=== PATIENT | female | born 1960 | race Two or more races ===

== ENCOUNTER 2020-03-16 07:13 | Outpatient (REF) | payer OTHER, SELFPAY ==
--- NOTE | 2020-03-16 07:19 | CT_ITS ---
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 This CT examination was performed using dose optimization techniques as appropriate, variously including the following: *Automated exposure control *Adjustment of mA and/or kV according to patient size (this includes techniques or standardized protocols for targeted exams where dose is matched to indication/reason for exam; i.e. extremities or head) *Use of iterative reconstruction technique DLP: 835 mGy-cm FINDINGS: There is no evidence of acute intracranial hemorrhage or territorial infarction. No abnormal mass effect or midline shift is seen. Muñiz to white matter differentiation is well preserved. No extra-axial fluid collections are identified. The ventricles are normal in size. There is no abnormal attenuation within the brain parenchyma. There is opacification of the left maxillary sinus without evidence of bony erosion or destruction. There is hyperostosis frontalis interna present. There is a 5 mm bony density seen along the mid falx consistent with a benign calcified meningioma. CT/CT head/brain wo con IMPRESSION: 1. No acute intracranial pathology. 2. There is a 5 mm calcified meningioma. 3. Chronic sinusitis with complete opacification of the left mastoid sinus.
== END 2020-03-16 07:14 | disposition home or self-care (01) ==
LOC: HO.CT 07:13
PROVIDERS: PCP Internal Medicine; Visit Provider Internal Medicine
DX: D16.4 Benign neoplasm of bones of skull and face (principal)
CPT/HCPCS: 70450

== ENCOUNTER 2020-05-20 07:54 | Outpatient (REF) | payer OTHER, SELFPAY | END 2020-05-20 07:55 | disposition home or self-care (01) | LOC: HO.LAB 07:54 | PROVIDERS: PCP Internal Medicine; Visit Provider Internal Medicine | DX: Z20.822 Contact with and (suspected) exposure to COVID-19 (principal) | CPT/HCPCS: 36415; C9803; U0003; U0005 ==

== ENCOUNTER 2020-08-17 10:37 | Outpatient (REF) | payer MEDICAID, SELFPAY ==
[2020-08-17 11:05] LABS: COVID-19 Test Negative (Negative)
== END 2020-08-17 10:38 | disposition home or self-care (01) ==
LOC: HO.LAB 10:37
PROVIDERS: Visit Provider Internal Medicine
DX: Z20.822 Contact with and (suspected) exposure to COVID-19 (principal)
CPT/HCPCS: 36415; 87635; C9803

== ENCOUNTER 2020-11-11 10:36 | Outpatient (REF) | payer OTHER, SELFPAY ==
--- NOTE | ~2020-11-11 | MM_ITS ---
EXAMINATION: MM SCREENING DIGITAL BREAST TOMOSYNTHESIS, BILATERAL CLINICAL INFORMATION: Screening. Asymptomatic. The lifetime risk of breast cancer based on the Tyrer-Cuzick Model is 7%. COMPARISON: Mammography: 11/04/2019, 10/31/2018, 03/14/2009 TECHNIQUE: Digital breast tomosynthesis is performed in both the craniocaudal and mediolateral oblique views along with computer-aided detection (CAD). Synthesized 2D images are generated from the tomosynthesis. FINDINGS: There are scattered areas of fibroglandular density (ACR BI-RADS breast composition Category b). There are no significant masses, abnormal calcifications, or other abnormalities. Parenchymal pattern is similar to prior studies. No developing density or interval mass or architectural abnormality. No abnormal calcifications. The axilla and skin contours are unremarkable. MM/MM tomosynthesis screening BI IMPRESSION: No mammographic evidence of malignancy. ASSESSMENT: BI-RADS 1: Negative RECOMMENDATION: Routine annual mammography screening. This patient's information was entered into a reminder system with a target due date for their next mammogram.
[2020-11-11 13:53] LABS: MANUAL DIFF FLAG NO
[2020-11-11 14:00] LABS: Basophils Absolute Auto 0.1 X10*3/uL (0.0-0.2); Basophils Percent Auto 0.6 % (0-2); Eosinophils Absolute Auto 0.3 X10*3/uL (0.0-0.4); Eosinophils Percent Auto 3.4 % (0-4); Hematocrit 39.4 % (37-47); Hemoglobin 12.6 g/dl (12.0-16.0); Imm Gran Abs Auto 0.02 X10*3/uL (0.00-0.03); Imm Gran Pct Auto 0.2 % (0.0-0.4); Lymphocytes Absolute Auto 2.4 X10*3/uL (1.2-4.9); Lymphocytes Percent Auto 25.2 % (20-40); Mean Corpuscular Hemoglobin 27.8 pg (27.0-33.0); Mean Corpuscular Volume 86.8 fL (80-98); Mean Platelet Volume 12.5 fL (9.4-12.3); Monocytes Absolute Auto 0.4 X10*3/uL (0.1-1.2); Monocytes Percent Auto 3.9 % (2-11); Neutrophils Absolute Auto 6.3 X10*3/uL (2.0-8.3); Neutrophils Percent Auto 66.7 % (45-73); Platelet Count 304 X10*3/uL (160-400); Red Blood Count 4.54 X10*6/uL (4.20-5.50); Red Cell Distribution Width 15.3 % (11.0-16.0); White Blood Count 9.4 X10*3/uL (4.8-10.8)
[2020-11-11 14:09] LABS: Estimated Average Glucose 128 mg/dL; Hemoglobin A1c % 6.1 %
[2020-11-11 14:14] LABS: Alanine Aminotransferase 7 U/L (0-31); Albumin Level 3.9 g/dL (3.5-5.0); Alkaline Phosphatase 101 U/L (39-117); Anion Gap 14 (12-20); Aspartate Amino Transferase 8 U/L (5-31); Bilirubin Total 0.4 mg/dL (0.0-1.0); Blood Urea Nitrogen 12 mg/dL (9-16); Calcium 9.3 mg/dL (8.4-10.2); Carbon Dioxide 25 mmol/L (22-29); Chloride 105 mmol/L (96-108); Cholesterol 191 mg/dL; Estimated Glomerular Filt Rate > 60; Glucose Fasting 101 mg/dL (60-99); HDL Cholesterol 38 mg/dL; LDL Cholesterol Calculated 132 mg/dl; Potassium 4.3 mmol/L (3.3-5.1); Sodium 140 mmol/L (135-145); Triglycerides 108 mg/dL
[2020-11-11 14:38] LABS: TSH reflex Free T4 2.63 uIU/mL (0.32-4.0)
== END 2020-11-11 10:37 | disposition home or self-care (01) ==
LOC: HO.MAMMO 10:36
PROVIDERS: PCP Internal Medicine; Visit Provider Internal Medicine
DX: Z12.31 Encounter for screening mammogram for malignant neoplasm of breast (principal); E66.01 Morbid (severe) obesity due to excess calories; F32.9 Major depressive disorder, single episode, unspecified; G47.30 Sleep apnea, unspecified; K21.9 Gastro-esophageal reflux disease without esophagitis; M25.473 Effusion, unspecified ankle; M25.561 Pain in right knee; M25.562 Pain in left knee
CPT/HCPCS: 36415; 77063; 77067; 80053; 80061; 83036; 84443; 85025

== ENCOUNTER → 2021-05-18 09:20 | Outpatient (BNVA) | payer OTHER, SELFPAY | PROVIDERS: PCP Internal Medicine; Referring Provider Internal Medicine; Visit Provider Physician Assistant ==

== ENCOUNTER 2022-05-22 14:21 | Outpatient (REF) | payer OTHER, SELFPAY ==
--- NOTE | ~2022-05-22 | MM_ITS ---
EXAMINATION: MM SCREENING DIGITAL BREAST TOMOSYNTHESIS, BILATERAL CLINICAL INFORMATION: Screening. Asymptomatic. COMPARISON: Mammography: November 11, 2020 and studies dating back to March 14, 2009 TECHNIQUE: Digital breast tomosynthesis is performed in both the craniocaudal and mediolateral oblique views along with computer-aided detection (CAD). Synthesized 2D images are generated from the tomosynthesis. FINDINGS: The breasts are almost entirely fatty (ACR BI-RADS breast composition Category a). There are no significant masses, abnormal calcifications, or other abnormalities. MM/MM tomosynthesis screening BI IMPRESSION: No significant changes from prior exam. ASSESSMENT: BI-RADS 1: Negative RECOMMENDATION: Routine annual mammography screening. This patient's information was entered into a reminder system with a target due date for their next mammogram.
== END 2022-05-22 14:22 | disposition home or self-care (01) ==
LOC: HO.MAMMO 14:21
PROVIDERS: Visit Provider Internal Medicine
DX: Z12.31 Encounter for screening mammogram for malignant neoplasm of breast (principal)
CPT/HCPCS: 77063; 77067

== ENCOUNTER 2022-06-08 11:12 | Outpatient (REF) | payer OTHER, SELFPAY ==
--- NOTE | ~2022-06-08 | XR_ITS ---
EXAMINATION: XR CHEST CLINICAL INFORMATION: Pneumonia COMPARISON: 11/18/2018 TECHNIQUE: 2 views of the chest were obtained. FINDINGS: Normal symmetric lung volumes. Radiopacity in the left lower lobe, likely lingula favors subsegmental atelectasis. No pleural effusion. No pneumothorax. Cardiomediastinal silhouette and pulmonary vascularity are within normal limits. No acute osseous abnormalities. XR/XR chest 2V IMPRESSION: No focal consolidation.
[2022-06-08 14:08] LABS: Basophils Absolute Auto 0.1 X10*3/uL (0.0-0.2); Basophils Percent Auto 0.6 % (0-2); Eosinophils Absolute Auto 0.3 X10*3/uL (0.0-0.4); Eosinophils Percent Auto 3.2 % (0-4); Hematocrit 38.9 % (37.0-47.0); Imm Gran Abs Auto 0.03 X10*3/uL (0.00-0.03); Imm Gran Pct Auto 0.3 % (0.0-0.4); Lymphocytes Absolute Auto 2.8 X10*3/uL (1.2-4.9); Lymphocytes Percent Auto 26.9 % (20-40); MANUAL DIFF FLAG NO; Mean Corpuscular HGB Conc 30.8 g/dl (31.0-35.0); Mean Corpuscular Hemoglobin 26.7 pg (27.0-33.0); Mean Corpuscular Volume 86.4 fL (80.0-98.0); Mean Platelet Volume 12.3 fL (9.4-12.3); Monocytes Absolute Auto 0.5 X10*3/uL (0.1-1.2); Monocytes Percent Auto 4.4 % (2-11); Neutrophils Absolute Auto 6.7 x10*3/uL (2.0-8.3); Neutrophils Percent Auto 64.6 % (45-73); Platelet Count 370 X10*3/uL (160-400); Red Cell Distribution Width 16.4 % (11.0-16.0); White Blood Count 10.3 X10*3/uL (4.8-10.8)
[2022-06-08 19:44] LABS: Estimated Average Glucose 123 mg/dL; Hemoglobin A1c % 5.9 %
[2022-06-08 19:54] LABS: Alanine Aminotransferase 12 U/L (0-31); Albumin Level 3.9 g/dL (3.5-5.0); Anion Gap 14 (12-20); Aspartate Amino Transferase 13 U/L (5-31); Bilirubin Total 0.5 mg/dL (0.0-1.0); Blood Urea Nitrogen 11 mg/dL (9-16); Calcium 9.4 mg/dL (8.4-10.2); Carbon Dioxide 28 mmol/L (22-29); Chloride 103 mmol/L (96-108); Cholesterol 185 mg/dL; Estimated Glomerular Filt Rate > 60; Glucose Fasting 102 mg/dL (60-99); Potassium 4.3 mmol/L (3.3-5.1); Sodium 141 mmol/L (135-145); Total Protein 6.9 g/dL (6.5-8.0); Triglycerides 103 mg/dL
[2022-06-08 19:55] LABS: Alkaline Phosphatase 107 U/L (39-117); HDL Cholesterol 40 mg/dL; LDL Cholesterol Calculated 125 mg/dl
[2022-06-08 20:18] LABS: TSH reflex Free T4 2.26 uIU/mL (0.32-4.0); Vitamin B12 431 pg/mL (200-900)
== END 2022-06-08 11:13 | disposition home or self-care (01) ==
LOC: HO.HMGCX 11:12
PROVIDERS: PCP Internal Medicine; Visit Provider Internal Medicine
DX: R73.03 Prediabetes (principal); E53.8 Deficiency of other specified B group vitamins; K21.9 Gastro-esophageal reflux disease without esophagitis; J18.9 Pneumonia, unspecified organism; E66.01 Morbid (severe) obesity due to excess calories; K52.9 Noninfective gastroenteritis and colitis, unspecified
CPT/HCPCS: 36415; 71046; 80053; 80061; 82607; 83036; 84443; 85025

== ENCOUNTER 2022-10-18 10:55 | Outpatient (REF) | payer OTHER, SELFPAY | END 2022-10-18 10:56 | disposition home or self-care (01) | LOC: HO.HOSX 10:55 | PROVIDERS: Visit Provider Physician Assistant | DX: Z13.89 Encounter for screening for other disorder (principal) ==

== ENCOUNTER 2023-01-08 11:50 | Outpatient (REF) | payer OTHER, SELFPAY ==
--- NOTE | ~2023-01-08 | XR_ITS ---
EXAMINATION: XR BILATERAL KNEES CLINICAL INFORMATION: Reason for Exam M25.561 - Pain in right knee COMPARISON: None TECHNIQUE: 3 views of the bilateral knees FINDINGS: RIGHT KNEE: No acute fracture or dislocation. Moderate degenerative changes of the knee with tricompartmental osteophytes and loss of medial compartment joint space. No joint effusion. Soft tissues are unremarkable. LEFT KNEE: No acute fracture or dislocation. Moderate degenerative changes of the knee with loss of medial compartment joint space and tricompartmental osteophytes. Trace suprapatellar joint effusion. 6 mm nonspecific soft tissue calcification anterior to the patella. XR/XR knee RT 3V IMPRESSION: * No acute osseous abnormality. * Moderate degenerative changes of the knees. Trace left suprapatellar joint effusion.
--- NOTE | ~2023-01-08 | XR_ITS ---
EXAMINATION: XR BILATERAL KNEES CLINICAL INFORMATION: Reason for Exam M25.561 - Pain in right knee COMPARISON: None TECHNIQUE: 3 views of the bilateral knees FINDINGS: RIGHT KNEE: No acute fracture or dislocation. Moderate degenerative changes of the knee with tricompartmental osteophytes and loss of medial compartment joint space. No joint effusion. Soft tissues are unremarkable. LEFT KNEE: No acute fracture or dislocation. Moderate degenerative changes of the knee with loss of medial compartment joint space and tricompartmental osteophytes. Trace suprapatellar joint effusion. 6 mm nonspecific soft tissue calcification anterior to the patella. XR/XR knee LT 3V IMPRESSION: * No acute osseous abnormality. * Moderate degenerative changes of the knees. Trace left suprapatellar joint effusion.
== END 2023-01-08 11:51 | disposition home or self-care (01) ==
LOC: HO.HOSX 11:50
PROVIDERS: Visit Provider Orthopaedic Surgery
DX: M17.0 Bilateral primary osteoarthritis of knee (principal)
CPT/HCPCS: 73562; 99202

== ENCOUNTER 2023-01-08 11:58 | Outpatient (AMB) | payer OTHER, SELFPAY ==
--- NOTE | 2023-01-08 12:12 | A.OFFVIS_ITS ---
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 She describes her pains as sharp in nature. Her pains have gotten worse over the last year in spite of continued non operative treatments. She has done physical therapy which aggravated her pain. She denies any locking or giving way. She has tried Tylenol and anti- inflammatory medicines which gave her minimal relief. She has had cortisone injections in the past which gave her no relief. She would like to hold off on surgery for as long as possible. Allergies shellfish derived Allergy (Unknown, Verified 01/08/23 12:13) Unknown SEAFOOD Allergy (Unknown, Uncoded 01/08/23 12:13) UNKNOWN Medication List - Last Reconciled 01/08/23 by Luis Rizo MD albuterol sulfate 90 mcg/actuation (ProAir HFA) 2 puffs inhalation Q4-6H PRN cholecalciferol (vitamin D3) 50 mcg PO DAILY mecobalamin (vitamin B12) 1,000 mcg sublingual DAILY PFSH Medical History Benign neoplasm of skull Asthma Surgical History History of breast biopsy History of tonsillectomy History of section Family History Father HTN (hypertension) Diabetes mellitus Mother HTN (hypertension) Kidney failure CVD (cardiovascular disease) Diabetes mellitus Mental health disorder Daughter No problems noted. Daughter No problems noted. 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 Cognitive needs: No Hearing needs: No Vision needs: Yes Physical Exam Vital Signs: BMI result Body Mass Index 53.9 Const Other: Well-nourished well-developed very friendly female awake alert and oriented x3 in no acute distress Extrem Other: Bilateral lower extremity examination shows good capillary refill, no skin lesions noted, normal sensation light touch Bilateral knee examination shows minimal effusions, palpable crepitus with range of motion, pain with range of motion, range of motion from -3 degrees to 115 degrees, no instability Results Reviewed Results Reviewed: X-rays of the patient's bilateral knees taken today show moderate joint space narrowing, subchondral sclerosis, no acute bony abnormalities Assessment & Plan Assessment & Plan (1) Right knee pain: Code(s): M25.561 - Pain in right knee Plan: Ms. Horton presents with bilateral knee pains due to degenerative joint disease. I had a lengthy discussion with the patient regarding the treatment options. She wishes to hold off on surgery for as long as possible. I agree with this plan. She has not gotten good relief from cortisone injections in the past. Thus, I will see whether not the patient's insurance company will cover a viscosupplementation injection for both of her knees. I will see her back once the injections are available. Feel free to call me at any time should questions regarding her orthopedic management arise. Thank you very much for asking me to see this very friendly patient. I spent 22 minutes in reviewing the patient's records and imaging studies, seeing the patient and documenting in the medical record. (2) Knee pain, left: Code(s): M25.562 - Pain in left knee (3) Arthritis of both knees: Code(s): M17.0 - Bilateral primary osteoarthritis of knee Orders: Orders XR knee LT 3V Today M25.562 - Pain in left knee XR knee RT 3V Today M25.561 - Pain in right knee Coding Level of Care Code New Pt Level 2 (33728) Diagnoses Right knee pain M25.561 Knee pain, left M25.562 Arthritis of both knees M17.0
[2023-01-08 12:18] VITALS: BMI 53.9
== END 2023-01-08 12:45 | disposition home or self-care (01) ==
PROVIDERS: PCP Internal Medicine; Visit Provider Orthopaedic Surgery
DX: M25.561 Pain in right knee (principal); M25.562 Pain in left knee; M17.0 Bilateral primary osteoarthritis of knee
CPT/HCPCS: 99202

== ENCOUNTER 2023-02-20 10:54 | Outpatient (AMB) | payer OTHER, SELFPAY ==
[2023-02-20 11:23] VITALS: BMI 53.9
--- NOTE | 2023-02-20 11:23 | A.OFFVIS_ITS ---
Intake Vital Signs 02/20/23 11:23 Height 4 ft 11 in Weight 267 lb BMI 53.9 Intake Visit Reasons: Bilateral knee pain Intake Note: Mari is a 62 year old female who presents today with complaints of bilateral knee pain , right worse than left. She describes her pains as sharp in nature. Her pains have gotten worse over the last year in spite of continued non operative treatments. She has done physical therapy which aggravated her pain. She denies any locking or giving way. She has tried Tylenol and anti- inflammatory medicines which gave her minimal relief. She has had cortisone injections in the past which gave her no relief. She would like to hold off on surgery for as long as possible. Allergies shellfish derived Allergy (Unknown, Verified 01/08/23 12:13) Unknown SEAFOOD Allergy (Unknown, Uncoded 01/08/23 12:13) UNKNOWN Medication List - Last Reconciled 02/21/23 by Luis Rizo MD albuterol sulfate 90 mcg/actuation (ProAir HFA) 2 puffs inhalation Q4-6H PRN cholecalciferol (vitamin D3) 50 mcg PO DAILY mecobalamin (vitamin B12) 1,000 mcg sublingual DAILY PFSH Medical History Benign neoplasm of skull Asthma Surgical History History of breast biopsy History of tonsillectomy History of section Family History Father HTN (hypertension) Diabetes mellitus Mother HTN (hypertension) Kidney failure CVD (cardiovascular disease) Diabetes mellitus Mental health disorder Daughter No problems noted. Daughter No problems noted. 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 Cognitive needs: No Hearing needs: No Vision needs: Yes Physical Exam Vital Signs: BMI result Body Mass Index 53.9 Const Other: Well-nourished well-developed very friendly female awake alert and oriented x3 in no acute distress Extrem Other: Bilateral lower extremity examination shows good capillary refill, no skin lesions noted, normal sensation light touch Bilateral knee examination shows minimal effusions, palpable crepitus with range of motion, pain with range of motion, no instability Results Reviewed Results Reviewed: 02/20/23 11:39 Hyaluronate Sodium [Euflexxa] 20 mg INTRAARTIC .STK-MED ONE Lidocaine HCl 2 % MPF [Xylocaine 2 % MPF] 5 ml .ROUTE .STK-MED ONE 02/20/23 12:01 Hyaluronate Sodium [Euflexxa] 20 mg INTRAARTIC .STK-MED ONE Lidocaine HCl 2 % MPF [Xylocaine 2 % MPF] 5 ml .ROUTE .STK-MED ONE X-rays of the patient's bilateral knee show joint space narrowing, subchondral sclerosis, no acute bony abnormalities Assessment & Plan Assessment & Plan (1) Arthritis of left knee: Code(s): M17.12 - Unilateral primary osteoarthritis, left knee Plan: Ms. Horton presents with bilateral knee pains due to degenerative joint disease. I had a lengthy discussion with the patient regarding the treatment options. She wishes to hold off on surgery for as long as possible. I agree with this plan. She has not gotten good relief from cortisone injections in the past. Thus, we discussed the risks and benefits of viscosupplementation injections. The patient wished to proceed. She tolerated the bilateral knee Euflexxa injections well. She will continue with her activity modifications. He will follow up next week as scheduled. Feel free to call me at any time should questions regarding her orthopedic management arise. I spent 22 minutes in reviewing the patient's records and imaging studies, seeing the patient and documenting in the medical record. (2) Arthritis of right knee: Code(s): M17.11 - Unilateral primary osteoarthritis, right knee (3) Bilateral knee pain: Code(s): M25.561 - Pain in right knee; M25.562 - Pain in left knee Orders: Orders AMB Joint Injection/Aspiration 02/20/23 M17.12 - Unilateral primary osteoarthritis, left knee AMB Joint Injection/Aspiration 02/20/23 M17.11 - Unilateral primary osteoarthritis, right knee Coding Level of Care Code Est Pt Level 2 (84738) Diagnoses Arthritis of left knee M17.12 Arthritis of right knee M17.11 Bilateral knee pain M25.561; M25.562
== END 2023-02-20 12:22 | disposition home or self-care (01) ==
PROVIDERS: PCP Internal Medicine; Visit Provider Orthopaedic Surgery
DX: M17.0 Bilateral primary osteoarthritis of knee (principal)
CPT/HCPCS: 99212

== ENCOUNTER → 2023-02-20 10:54 | Outpatient (BNVA) | payer OTHER, SELFPAY | PROVIDERS: PCP Internal Medicine; Visit Provider Orthopaedic Surgery | DX: M17.12 Unilateral primary osteoarthritis, left knee (principal); M17.11 Unilateral primary osteoarthritis, right knee; M25.561 Pain in right knee; M25.562 Pain in left knee | CPT/HCPCS: 99212; J7323 ==

== ENCOUNTER 2023-02-27 11:13 | Outpatient (AMB) | payer OTHER, SELFPAY ==
[2023-02-27 11:20] VITALS: BMI 53.9
--- NOTE | 2023-02-27 11:20 | MHC.OFFVIS ---
Intake Vital Signs 02/27/23 11:20 Height 4 ft 11 in Weight 267 lb BMI 53.9 Intake Visit Reasons: OV - Right Knee Euflexxa #2 Intake Note: Mari is a 62 year old female who presents today for her 2nd Euflexxa gel injection for both of her knees. Patient reports she has notice a difference in her left knee but not so much her right knee. She denies any fevers or chills. She denies any locking or giving way. Allergies shellfish derived Allergy (Unknown, Verified 02/27/23 11:22) Unknown SEAFOOD Allergy (Unknown, Uncoded 01/08/23 12:13) UNKNOWN [facility] Medical History Benign neoplasm of skull Asthma Surgical History History of breast biopsy History of tonsillectomy History of section Family History Father HTN (hypertension) Diabetes mellitus Mother HTN (hypertension) Kidney failure CVD (cardiovascular disease) Diabetes mellitus Mental health disorder Daughter No problems noted. Daughter No problems noted. 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 Cognitive needs: No Hearing needs: No Vision needs: Yes Physical Exam Vital Signs: BMI result Body Mass Index 53.9 Extrem Other: Bilateral knee examination shows minimal effusions, palpable crepitus with range of motion, pain with range of motion, no instability Results Reviewed Results Reviewed: 02/27/23 11:14 Hyaluronate Sodium [Euflexxa] 20 mg INTRAARTIC .STK-MED ONE Lidocaine HCl 2 % MPF [Xylocaine 2 % MPF] 5 ml .ROUTE .STK-MED ONE 02/27/23 11:19 Hyaluronate Sodium [Euflexxa] 20 mg INTRAARTIC .STK-MED ONE Lidocaine HCl 2 % MPF [Xylocaine 2 % MPF] 5 ml .ROUTE .STK-MED ONE X-rays of the patient's bilateral knee show joint space narrowing, subchondral sclerosis, no acute bony abnormalities Assessment & Plan Assessment & Plan (1) Arthritis of left knee: Code(s): M17.12 - Unilateral primary osteoarthritis, left knee Plan: Ms. Horton presents with bilateral knee pains due to degenerative joint disease. The risks and benefits of a 2nd set of Euflexxa injections were discussed at length with the patient. The patient the wished to proceed. She tolerated the injections well. She will continue with her home exercise program. She will follow up next week as scheduled. Feel free to call me at any time should questions regarding her orthopedic management arise. I spent 22 minutes in reviewing the patient's records and imaging studies, seeing the patient and documenting in the medical record. (2) Arthritis of right knee: Code(s): M17.11 - Unilateral primary osteoarthritis, right knee Orders: Orders AMB Joint Injection/Aspiration Today M17.12 - Unilateral primary osteoarthritis, left knee AMB Joint Injection/Aspiration Today M17.11 - Unilateral primary osteoarthritis, right knee Coding Level of Care Code Procedure Only Diagnoses Arthritis of left knee M17.12 Arthritis of right knee M17.11
== END 2023-02-27 11:40 | disposition home or self-care (01) ==
PROVIDERS: PCP Internal Medicine; Visit Provider Orthopaedic Surgery
DX: M17.0 Bilateral primary osteoarthritis of knee (principal)
CPT/HCPCS: 20610

== ENCOUNTER → 2023-02-27 11:13 | Outpatient (BNVA) | payer OTHER, SELFPAY | PROVIDERS: PCP Internal Medicine; Visit Provider Orthopaedic Surgery | DX: M17.12 Unilateral primary osteoarthritis, left knee (principal); M17.11 Unilateral primary osteoarthritis, right knee | CPT/HCPCS: 20610; J7323 ==

== ENCOUNTER 2023-03-05 12:11 | Outpatient (AMB) | payer OTHER, SELFPAY ==
[2023-03-05 12:16] VITALS: BP 118/68; PULSE 94; O2SAT 98; BMI 52.5
--- NOTE | 2023-03-05 12:16 | A.OFFPC_ITS ---
Vital Signs 03/05/23 12:16 Height 4 ft 11 in Weight 260 lb BMI 52.5 BP 118/68 Blood Pressure Location Lt brachial Position Sitting Pulse 94 Pulse Source Pulse Oximeter Pulse Oximetry (%) 98 Oxygen Delivery Method Room Air Intake Visit Reasons: Interested in zepbound weight loss Allergies shellfish derived Allergy (Unknown, Verified 03/05/23 12:18) Unknown SEAFOOD Allergy (Unknown, Uncoded 03/05/23 12:18) UNKNOWN Medication List - Last Reconciled 03/05/23 by Franco Del Castillo MD albuterol sulfate 90 mcg/actuation (ProAir HFA) 2 puffs inhalation Q4-6H PRN cholecalciferol (vitamin D3) 50 mcg PO DAILY mecobalamin (vitamin B12) 1,000 mcg sublingual DAILY Tobacco use date assessed: 03/05/23 Dental Screening Dental Screen Date: 03/05/23 Did you have a dental visit in the last 12 months?: Yes Did you have a dental problem in the last 6 months where you did not have access to dental care?: No Was dental information given to patient?: Patient has dentist HPI Interested in zepbound weight loss HPI Details Patient is 62-year-old female came in today to talk about her weight Patient have a BMI of 52.5 She would like to have assistance with medication She was interested in injections But we talked about the side effects and patient would like to try phentermine 1st. Side effect of phentermine also reviewed with the patient I have sent medication along with Topamax She is to start taking both daily Patient is aware that she will need monthly visit to see the effect of medication and monitor side effects She will call to book 4 week appointment once she picked up medication if approved by her insurance company. She will also have labs done today to have a baseline liver function and kidney functions [facility] Medical History Benign neoplasm of skull Asthma Surgical History History of breast biopsy History of tonsillectomy History of section Family History Father HTN (hypertension) Diabetes mellitus Mother HTN (hypertension) Kidney failure CVD (cardiovascular disease) Diabetes mellitus Mental health disorder Daughter No problems noted. Daughter No problems noted. 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 60215 - PHQ-9 Billing: Patient declined-do not bill Source: Developed by Drs. River Pavon, Holley Rutledge, Anibal Mercado and colleagues, with an educational luciana from [employer]. Thrive Questionnaire Date Thrive assessed: 10/14/20 I am a: Patient What is your living situation today?: I have a steady place to live Within the past 12 months, did the food you bought not last and you didn't have the money to get more?: Never true Within the past 12 months, did you worry whether your food would run out before you got money to buy more?: Never true AUDIT C Alcohol Use Questionnaire (AUDIT-C) 1. How often do you have a drink containing alcohol?: Never 3. How often do you have six or more drinks on one occasion?: Never Total Score: 0 MCKENZIE-7 AMB Questionnaire MCKENZIE-7 Date MCKENZIE - 7 assessed: 03/05/23 Feeling nervous, anxious, or on edge: 0 = Not at all Not being able to stop or control worryin = Not at all Worrying too much about different things: 1 = Several days Trouble relaxin = Several days Being so restless that it is hard to sit still: 0 = Not at all Becoming easily annoyed or irritable: 1 = Several days Feeling afraid as if something awful might happen: 0 = Not at all Total MCKENZIE-7 score (0-4 normal; 5-9 mild; 10-14 moderate; 15-21 severe): 3 Source: Developed by Drs. River Pavon, Holley Rutledge, Anibal Mercado and colleagues, with an educational luciana from [employer]. MCKENZIE-7 Assessment Billing MCKENZIE-7 Assessment Tool: MCKENZIE-7 Assessment 63636 ACT Questionnaire In the past 4 weeks, how much of the time did your asthma keep you from getting as much done at work, school or at home?: Some of the time During the past 4 weeks, how often have you had shortness of breath?: 1-2 times a week During the past 4 weeks, how often did your asthma symptoms wake you up at night or earlier than usual in the morning?: Once or twice per week During the past 4 weeks, how often have you had to use your rescue inhaler or nebulizer medication?: 2-3 times a week How would you rate your asthma control during the past 4 weeks?: Completely controlled ACT Interpretation: Negative Score: 19 Review of Systems Const Denies chills and Denies fever(s) ENT Denies epistaxis and Denies nasal discharge Card Denies chest pain Resp Denies chest congestion, Denies cough and Denies hemoptysis GI Denies diarrhea and Denies nausea Skin/Breast Denies rash Neuro Reports no additional complaints Psych Reports no additional complaints Endo Reports no additional complaints Physical exam (Primary Care) Vital Signs: Last Vital Signs Pulse 94 03/05/23 12:16 BP 118/68 03/05/23 12:16 Pulse Ox 98 03/05/23 12:16 Oxygen Delivery Method Room Air 03/05/23 12:16 BMI result Body Mass Index 52.5 Tobacco/Smoking Status: Tobacco use Status Tobacco use date assessed 03/05/23 03/05/23 12:20 Patient Tobacco Use Status Never used Tobacco 03/05/23 12:20 e-Cigarette/Vaping Use Never Used 03/05/23 12:20 Thrive Assessment: Date of Thrive Assessment Date Thrive assessed 10/14/20 03/05/23 12:20 Const General: cooperative, comfortable and no acute distress Orientation/consciousness: patient oriented x3 HENOR Head: Yes normocephalic Eyes General: appearance normal, both eyes and all related structures Neck Neck: Yes supple Resp Effort & Inspection: normal respiratory effort, no cough and no stridor Cardio Rhythm: regular rhythm Heart sounds: S1 normal heart sound present and S2 normal heart sound present Skin General skin exam: turgor normal Neuro General: patient oriented x3, tone normal and moves all extremities Extrem Right lower extremity: no edema Left lower extremity: no edema Assessment and Plan Assessment & Plan (1) Pre-diabetes: Code(s): R73.03 - Prediabetes (2) Morbid obesity due to excess calories: Comment: If your BMI is between 25 and 29.9, you are overweight. If your BMI is 30 or greater, you are obese. ___ Being obese is a problem, because it increases the risks of many different health problems. It can also make it hard for you to move, breathe, and do other things that people who are at a healthy weight can do easily. Plus, being obese can be hard emotionally. ___ What are the health risks of being obese? Being obese increases a persons risk of developing many health problems. Here are just a few examples: __ Diabetes High blood pressure, High cholesterol, Heart disease (including heart attacks) Stroke, Sleep apnea (a disorder in which you stop breathing for short periods while asleep) Asthma, Cancer __ Does being obese shorten a persons life? Yes. Studies show that people who are obese younger than people who are a healthy weight. They also show that the risk of goes up the heavier a person is. The degree of increased risk depends on how long the person has been obese, and on what other medical problems he or she has. , Reduce your carbohydrate intake and choose carbs that are complex. Remember as a general rule of thumb, avoid highly processed foods. If it's white and soft, it's probably been stripped of its nutritional value. Change white bread to whole wheat bread, white rice to brown rice, white potatoes to sweet potatoes, white pasta to whole wheat pasta. Monitor portion sizes too: protein should be no bigger than your fist. Limit your red meat intake to only once or twice a wk. Eat more white meat but make sure to avoid creamy sauces etc. Broiling, baking or grilling is best. Increase dark, green leafy vegetables and fruits. Code(s): E66.01 - Morbid (severe) obesity due to excess calories Plan Patient is 62-year-old female came in today to talk about her weight Patient have a BMI of 52.5 She would like to have assistance with medication She was interested in injections But we talked about the side effects and patient would like to try phentermine 1st. Side effect of phentermine also reviewed with the patient I have sent medication along with Topamax She is to start taking both daily Patient is aware that she will need monthly visit to see the effect of medication and monitor side effects She will call to book 4 week appointment once she picked up medication if approved by her insurance company. She will also have labs done today to have a baseline liver function and kidney functions Patient is prediabetic and she is concerned about that Orders: Orders Complete Blood Count Auto Diff Today E66.01 - Morbid (severe) obesity due to excess calories, R73.03 - Prediabetes Comprehensive [place]. Panel Fast Today E66.01 - Morbid (severe) obesity due to excess calories, R73.03 - Prediabetes Lipid Panel Today E66.01 - Morbid (severe) obesity due to excess calories, R73.03 - Prediabetes Hemoglobin A1c Today E66.01 - Morbid (severe) obesity due to excess calories, R73.03 - Prediabetes Medications: New phentermine must administer 2 hours after breakfast 15 mg PO DAILY 30 days 30 caps 0RF topiramate (Topamax) 25 mg PO DAILY 30 tabs 0RF Coding Level of Care Code Est Pt Level 3 (24568) Diagnoses Pre-diabetes R73.03 Morbid obesity due to excess calories E66.01 Additional Codes MCKENZIE-7 Assessment Billing - MCKENZIE-7 Assessment Tool: MCKENZIE-7 Assessment 06089 ([id number])
== END 2023-03-05 13:41 | disposition home or self-care (01) ==
PROVIDERS: PCP Internal Medicine; Visit Provider Internal Medicine
DX: R73.03 Prediabetes (principal); E66.01 Morbid (severe) obesity due to excess calories; Z68.43 Body mass index [BMI] 50.0-59.9, adult
CPT/HCPCS: 99213

== ENCOUNTER 2023-03-05 12:38 | Outpatient (REF) | payer OTHER, SELFPAY ==
[2023-03-05 16:04] LABS: MANUAL DIFF FLAG NO
[2023-03-05 16:07] LABS: Basophils Absolute Auto 0.1 X10*3/uL (0.0-0.2); Basophils Percent Auto 0.7 % (0-2); Eosinophils Absolute Auto 0.3 X10*3/uL (0.0-0.4); Eosinophils Percent Auto 3.1 % (0-4); Hematocrit 39.1 % (37.0-47.0); Hemoglobin 12.3 g/dl (12.0-16.0); Imm Gran Abs Auto 0.03 X10*3/uL (0.00-0.03); Imm Gran Pct Auto 0.3 % (0.0-0.4); Lymphocytes Absolute Auto 2.7 X10*3/uL (1.2-4.9); Lymphocytes Percent Auto 27.1 % (20-40); Mean Corpuscular HGB Conc 31.5 g/dl (31.0-35.0); Mean Corpuscular Hemoglobin 26.5 pg (27.0-33.0); Mean Corpuscular Volume 84.1 fL (80.0-98.0); Mean Platelet Volume 12.3 fL (9.4-12.3); Monocytes Absolute Auto 0.4 X10*3/uL (0.1-1.2); Monocytes Percent Auto 4.2 % (2-11); Neutrophils Absolute Auto 6.5 x10*3/uL (2.0-8.3); Neutrophils Percent Auto 64.6 % (45-73); Platelet Count 364 X10*3/uL (160-400); Red Blood Count 4.65 X10*6/uL (4.20-5.50); Red Cell Distribution Width 16.3 % (11.0-16.0)
[2023-03-05 16:13] LABS: Estimated Average Glucose 131 mg/dL; Hemoglobin A1c % 6.2 % (<6.0)
[2023-03-05 16:19] LABS: Alanine Aminotransferase 7 U/L (0-31); Alkaline Phosphatase 99 U/L (39-117); Anion Gap 10 (12-20); Aspartate Amino Transferase 10 U/L (5-31); Bilirubin Total 0.4 mg/dL (0.0-1.0); Blood Urea Nitrogen 14 mg/dL (9-16); Calcium 9.5 mg/dL (8.4-10.2); Carbon Dioxide 30 mmol/L (22-29); Chloride 103 mmol/L (96-108); Cholesterol 195 mg/dL (<200); Estimated Glomerular Filt Rate > 60; Glucose Fasting 99 mg/dL (60-99); HDL Cholesterol 42 mg/dL (>40); LDL Cholesterol Calculated 132 mg/dL (<100); Potassium 4.2 mmol/L (3.3-5.1); Sodium 139 mmol/L (135-145); Total Protein 7.6 g/dL (6.5-8.0); Triglycerides 109 mg/dL (<150)
== END 2023-03-05 12:39 | disposition home or self-care (01) ==
LOC: HO.HMGCLDS 12:38
PROVIDERS: PCP Internal Medicine; Visit Provider Internal Medicine
DX: R73.03 Prediabetes (principal); E66.01 Morbid (severe) obesity due to excess calories
CPT/HCPCS: 36415; 80053; 80061; 83036; 85025

== ENCOUNTER 2023-03-06 11:05 | Outpatient (AMB) | payer OTHER, SELFPAY ==
[2023-03-06 11:23] VITALS: BMI 52.5
--- NOTE | 2023-03-06 11:23 | MHC.OFFVIS ---
Intake Vital Signs 03/06/23 11:23 Height 4 ft 11 in Weight 260 lb BMI 52.5 Intake Visit Reasons: OV - B/L Knee Euflexxa #3 Intake Note: Mari is a 62 year old female who presents today for her 3rd Euflexxa gel injection for both of her knees. Patient reports her left knee feels good after the 2nd injection and the right knee is feeling a bit better. She denies any fevers or chills. She continues with her home exercise program. Allergies shellfish derived Allergy (Unknown, Verified 03/06/23 11:24) Unknown SEAFOOD Allergy (Unknown, Uncoded 03/05/23 12:18) UNKNOWN Medication List - Last Reconciled 03/06/23 by Luis Rizo MD albuterol sulfate 90 mcg/actuation (ProAir HFA) 2 puffs inhalation Q4-6H PRN cholecalciferol (vitamin D3) 50 mcg PO DAILY mecobalamin (vitamin B12) 1,000 mcg sublingual DAILY phentermine 15 mg PO DAILY 30 days topiramate (Topamax) 25 mg PO DAILY PFS Medical History Benign neoplasm of skull Asthma Surgical History History of breast biopsy History of tonsillectomy History of section Family History Father HTN (hypertension) Diabetes mellitus Mother HTN (hypertension) Kidney failure CVD (cardiovascular disease) Diabetes mellitus Mental health disorder Daughter No problems noted. Daughter No problems noted. 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 Cognitive needs: No Hearing needs: No Vision needs: Yes Physical Exam Vital Signs: BMI result Body Mass Index 52.5 Const Other: Well-nourished well-developed very friendly female awake alert and oriented x3 in no acute distress Extrem Other: Bilateral lower extremity examination shows good capillary refill, no skin lesions noted, normal sensation light touch Bilateral knee examination shows minimal effusions, palpable crepitus with range of motion, pain with range of motion, no instability Results Reviewed Results Reviewed: X-rays of the patient's bilateral knee show joint space narrowing, subchondral sclerosis, no acute bony abnormalities Assessment & Plan Assessment & Plan (1) Arthritis of left knee: Code(s): M17.12 - Unilateral primary osteoarthritis, left knee (2) Arthritis of right knee: Code(s): M17.11 - Unilateral primary osteoarthritis, right knee Plan: Ms. Horton presents with bilateral knee pains due to degenerative joint disease. The risks and benefits of a 3rd Euflexxa injection were discussed at length with the patient. The patient wished to proceed. She tolerated the injections well. She will continue with her home exercise program. She will follow up with me on an as-needed basis should her symptoms not plateau at an unacceptable level over the next few months. Feel free to call me at any time should questions regarding her orthopedic management arise. I spent 22 minutes in reviewing the patient's records and imaging studies, seeing the patient and documenting in the medical record. Orders: Orders AMB Joint Injection/Aspiration Today M17.12 - Unilateral primary osteoarthritis, left knee AMB Joint Injection/Aspiration Today M17.11 - Unilateral primary osteoarthritis, right knee Coding Level of Care Code Procedure Only Diagnoses Arthritis of left knee M17.12 Arthritis of right knee M17.11
== END 2023-03-06 12:02 | disposition home or self-care (01) ==
PROVIDERS: PCP Internal Medicine; Visit Provider Orthopaedic Surgery
DX: M17.0 Bilateral primary osteoarthritis of knee (principal)
CPT/HCPCS: 20610

== ENCOUNTER → 2023-03-06 11:05 | Outpatient (BNVA) | payer OTHER, SELFPAY | PROVIDERS: PCP Internal Medicine; Visit Provider Orthopaedic Surgery | DX: M17.0 Bilateral primary osteoarthritis of knee (principal) | CPT/HCPCS: 20610; J7323 ==

== ENCOUNTER 2023-05-21 10:37 | Outpatient (AMB) | payer OTHER, SELFPAY ==
[2023-05-21 11:53] VITALS: BP 136/78; PULSE 82; TEMP 36.3; O2SAT 98; BMI 51.1
--- NOTE | 2023-05-21 11:53 | MHC.OFFWIV ---
Intake Vital Signs 05/21/23 11:53 Height 4 ft 11 in Weight 253 lb BMI 51.1 BP 136/78 Blood Pressure Location Lt brachial Position Sitting Pulse 82 Pulse Source Pulse Oximeter Temp 97.3 F Temp Source Temporal Artery Scan Pulse Oximetry (%) 98 Oxygen Delivery Method Room Air Intake Visit Reasons: EST/back pain (lobby) Intake Note: pt ia here today for back pain started yesterday Patient Tobacco Use Status: Never used Tobacco Allergies shellfish derived Allergy (Unknown, Verified 05/21/23 12:50) Unknown seafood Allergy (Verified 05/21/23 12:50) Unknown Medication List - Last Reconciled 05/21/23 by Johnie Stephens MD albuterol sulfate 90 mcg/actuation (ProAir HFA) 2 puffs inhalation Q4-6H PRN cholecalciferol (vitamin D3) 50 mcg PO DAILY mecobalamin (vitamin B12) 1,000 mcg sublingual DAILY phentermine 15 mg PO DAILY 30 days topiramate (Topamax) 25 mg PO DAILY Do you need a note to return to daycare/school/sports/work: No HPI EST/back pain (lobby) HPI Details Patient presents to the office for a sick visit. Complaining of lower back pain for the past week. No history of fall or trauma prior to the onset of symptoms. No urinary incontinence. No fevers or chills. Pain is worse on bending forwards or sideways. Relieve done sitting down. Pain is radiating into the gluteal area. [facility] Medical History Benign neoplasm of skull Asthma Surgical History History of breast biopsy History of tonsillectomy History of section Family History Father HTN (hypertension) Diabetes mellitus Mother HTN (hypertension) Kidney failure CVD (cardiovascular disease) Diabetes mellitus Mental health disorder Daughter No problems noted. Daughter No problems noted. 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 Back: no CVA tenderness Results AMB Urinalysis, Automated UA Leukoctes 0 [place]/uL Last Edit by Star Ortiz CMA on 05/21/23 12:32 UA Nitrite Negative Last Edit by Star Ortiz CMA on 05/21/23 12:32 UA Urobilinogen 0.2 mg/dL Last Edit by Star Ortiz CMA on 05/21/23 12:32 UA Protein 15 mg/dL Last Edit by Star Ortiz CMA on 05/21/23 12:32 UA pH 6.0 Last Edit by Star Ortiz CMA on 05/21/23 12:32 UA Blood 200 [place]any/uL Last Edit by Star Ortiz CMA on 05/21/23 12:32 UA Specific [place] 1.025 Last Edit by Star Ortiz CMA on 05/21/23 12:32 UA Ketone Negative Last Edit by Star Ortiz CMA on 05/21/23 12:32 UA Bilirubin 0 mg/dL Last Edit by Star Ortiz CMA on 05/21/23 12:32 UA Glucose 0 mg/dL Last Edit by Star Ortiz CMA on 05/21/23 12:32 Results Reviewed Results Reviewed: Laboratory Last Values Urine pH (Auto) 6.0 05/21/23 12:31 Specific [place] (Auto) 1.025 05/21/23 12:31 Urine Protein (Auto) 15 mg/dL 05/21/23 12:31 Glucose (UA)(Auto) 0 mg/dL 05/21/23 12:31 Urine Ketones (Auto) Negative 05/21/23 12:31 Urine Blood (Auto) 200 Y[place]vany/uL 05/21/23 12:31 Urine Nitrite (Auto) Negative 05/21/23 12:31 Urine Bilirubin (Auto) 0 mg/dL 05/21/23 12:31 Urine Urobilinogen (Auto) 0.2 mg/dL 05/21/23 12:31 Leukocyte Esterase (Auto) 0 [place]/uL 05/21/23 12:31 Assessment & Plan Assessment & Plan (1) Lower thoracic back pain: Code(s): M54.6 - Pain in thoracic spine Plan: Meloxicam called in. If symptoms not better to follow-up here. Orders: Orders AMB Urinalysis Automated Today Z13.9 - Encounter for screening, unspecified Coding Level of Care Code Est Pt Level 3 (67702) Diagnoses Lower thoracic back pain M54.6
== END 2023-05-21 13:05 | disposition home or self-care (01) ==
PROVIDERS: PCP Internal Medicine; Visit Provider Internal Medicine
DX: M54.6 Pain in thoracic spine (principal)
CPT/HCPCS: 81003; 99213

== ENCOUNTER 2023-05-22 08:41 | Emergency (ER) | payer OTHER, SELFPAY ==
--- NOTE | ~2023-05-22 | CT_ITS ---
EXAMINATION: CT ABDOMEN AND PELVIS WITHOUT CONTRAST CLINICAL INFORMATION: Right-sided flank pain COMPARISON: None available. TECHNIQUE: Multidetector volumetric imaging was performed from the superior aspect of the liver through the pubic symphysis. Sagittal and coronal reformatted images were obtained on the technologist's workstation. This CT examination was performed using dose optimization techniques as appropriate, variously including the following: *Automated exposure control *Adjustment of mA and/or kV according to patient size (this includes techniques or standardized protocols for targeted exams where dose is matched to indication/reason for exam; i.e. extremities or head) *Use of iterative reconstruction technique DLP: 916 mGy-cm FINDINGS: LUNG BASES: The visualized lung bases are unremarkable. LIVER, GALLBLADDER, AND BILIARY TREE: Moderate hepatic steatosis but no focal hepatic mass or intrahepatic biliary dilatation. The gallbladder is unremarkable with no evidence of radiopaque gallstones, gallbladder wall thickening, or obvious pericholecystic inflammatory changes. PANCREAS: Unremarkable. SPLEEN: Unremarkable. ADRENAL GLANDS: Unremarkable. KIDNEYS AND URETERS: Punctate left nephroliths are observed, measuring up to 7 mm. No evidence for right nephrolithiasis. No perinephric collections. There is mild distention of the right and left collecting systems right greater than left. The right ureter is slightly distended. There are several punctate calcifications near the right UVJ which could reflect phleboliths or be related to the right ureter. I suspect there is a distal right ureteral stone at 4 mm (5/559). BLADDER: Decompressed. GASTROINTESTINAL TRACT: No bowel obstruction or right or left lower quadrant inflammatory change. ABDOMINAL WALL: No significant hernia is appreciated. LYMPH NODES: Normal. VASCULAR: Unremarkable. PELVIC VISCERA: Abnormal. Large bulky fibroid uterus noted, with peripheral calcification. OSSEOUS STRUCTURES: No fracture or destructive process. CT/CT abdomen pelvis wo IV con IMPRESSION: Distal right ureteral stone with mild right hydronephrosis. Other comments as above. Fleischner guidelines were followed.
[2023-05-22 08:46] VITALS: BP 165/82; PULSE 83; RESP 16; TEMP 36.3; O2SAT 97; BMI 52.3
[2023-05-22 09:43] LABS: MANUAL DIFF FLAG NO
[2023-05-22 09:44] LABS: Basophils Absolute Auto 0.1 X10*3/uL (0.0-0.2); Basophils Percent Auto 0.5 % (0-2); Eosinophils Absolute Auto 0.3 X10*3/uL (0.0-0.4); Eosinophils Percent Auto 2.2 % (0-4); Hematocrit 36.4 % (37.0-47.0); Hemoglobin 11.8 g/dl (12.0-16.0); Imm Gran Abs Auto 0.04 X10*3/uL (0.00-0.03); Imm Gran Pct Auto 0.3 % (0.0-0.4); Lymphocytes Absolute Auto 2.3 X10*3/uL (1.2-4.9); Lymphocytes Percent Auto 19.1 % (20-40); Mean Corpuscular HGB Conc 32.4 g/dl (31.0-35.0); Mean Corpuscular Hemoglobin 26.4 pg (27.0-33.0); Mean Corpuscular Volume 81.4 fL (80.0-98.0); Mean Platelet Volume 11.1 fL (9.4-12.3); Monocytes Absolute Auto 0.5 X10*3/uL (0.1-1.2); Monocytes Percent Auto 4.4 % (2-11); Neutrophils Absolute Auto 8.9 x10*3/uL (2.0-8.3); Neutrophils Percent Auto 73.5 % (45-73); Platelet Count 351 X10*3/uL (160-400); Red Blood Count 4.47 X10*6/uL (4.20-5.50); Red Cell Distribution Width 17.1 % (11.0-16.0); White Blood Count 12.2 X10*3/uL (4.8-10.8)
[2023-05-22 09:58] LABS: Alanine Aminotransferase 10 U/L (0-31); Albumin Level 3.9 g/dL (3.5-5.0); Alkaline Phosphatase 95 U/L (39-117); Anion Gap 12 (12-20); Aspartate Amino Transferase 13 U/L (5-31); Bilirubin Total 0.5 mg/dL (0.0-1.0); Blood Urea Nitrogen 15 mg/dL (9-16); Calcium 9.2 mg/dL (8.4-10.2); Carbon Dioxide 28 mmol/L (22-29); Chloride 104 mmol/L (96-108); Creatinine Clr Calc Pharmacy 57.8; Estimated Glomerular Filt Rate 46; Glucose Random 114 mg/dL (60-115); Potassium 4.3 mmol/L (3.3-5.1); Sodium 140 mmol/L (135-145); Total Protein 7.6 g/dL (6.5-8.0)
--- NOTE | 2023-05-22 10:39 | ED_ITS ---
HPI - Abdominal Pain General Chief Complaint: Abdominal Pain Stated Complaint: Abd & back pain Time Seen by Provider: 05/22/23 10:31 Source: patient Mode of arrival: ambulatory Limitations: no limitations History of Present Illness HPI narrative: 62 yo female with PMH of arthritis, remote kidney stones, pre-diabetes, GERD, OTF, asthma, prior c section presents with 4 days of nausea, vomiting, R flank pain, dysuria - took pyridium. No travel, sick contacts, food exposures. She is also in the middle of her menstrual cycle (plan to talk to OB end of month about her persistent menses at her age) this is not new her menses has been going for a while. MD elicited complaint: abdominal pain and flank pain Pertinent past history: kidney stones Onset (ago): day(s) (4) Pain Consistency: constant Location: RLQ and R flank Severity: moderate Quality: stabbing Radiation: none Migration to: no migration Exacerbating factors: eating Relieving factors: nothing Associated symptoms: nausea, vomiting and dysuria Treatments prior to arrival: other (pyridium) Related Data Home Medications Medication Instructions Recorded Confirmed albuterol sulfate 90 mcg/actuation 2 puff inhalation Q4-6H PRN 02/19/20 03/06/23 aerosol inhaler (ProAir HFA) cholecalciferol (vitamin D3) 50 50 mcg PO DAILY 02/19/20 03/06/23 mcg (2,000 unit) capsule mecobalamin (vitamin B12) 1,000 1,000 mcg sublingual DAILY 02/19/20 03/06/23 mcg disintegrating tablet,sublingual Previous Rx's Medication Instructions Recorded phentermine 15 mg capsule 15 mg PO DAILY 30 days #30 caps 03/05/23 topiramate 25 mg tablet (Topamax) 25 mg PO DAILY #30 tabs 03/06/23 meloxicam 15 mg tablet 15 mg PO DAILY #14 tabs 05/21/23 cefuroxime axetil 250 mg tablet 250 mg PO BID 9 days #18 tabs 05/22/23 ondansetron 4 mg disintegrating 4 mg PO Q8H PRN nausea and 05/22/23 tablet vomiting #20 tabs oxycodone 10 mg tablet 10 mg PO Q6H PRN pain #14 tabs 05/22/23 tamsulosin 0.4 mg capsule 0.4 mg PO DAILY 7 days #7 caps 05/22/23 Allergies Allergy/AdvReac Type Severity Reaction Status Date / Time shellfish derived Allergy Unknown Unknown Verified 05/22/23 08:45 seafood Allergy Unknown Verified 05/22/23 08:45 Review of Systems Review of Systems Constitutional : No Weight loss, No Fever, No Chills ENT/Mouth : No sore throat, No Rhinorrhea Eyes: No Swelling, No Redness Cardiovascular : No Chest Pain, No SOB, NoEdema Respiratory : No Cough, No Sputum, No Wheezing Gastrointestinal : Positive Nausea, Positive Vomiting, no Diarrhea, positive abdominal Pain, No Hematochezia, No Melena Genitourinary : pos Dysuria, No Urinary Frequency, No Hematuria, No Urgency Musculoskeletal : No joint pain, No Myalgias, No Joint Swelling Skin : No Skin Lesions, No rash Neuro : No Weakness, No Numbness, No Dizziness, No Headache Psych : No Anxiety/Panic, No Depression Heme/Lymph: No Bruising, No Lymphadenopathy Endocrine : No Polyuria, No Polydipsia All other systems reviewed and are negative. [facility] Past Medical History Attestation statement: The following information was validated with the patient. Source: old records reviewed Medical History Benign neoplasm of skull Asthma Surgical History History of breast biopsy History of tonsillectomy History of section Family History Family History Father HTN (hypertension) Diabetes mellitus Mother HTN (hypertension) Kidney failure CVD (cardiovascular disease) Diabetes mellitus Mental health disorder Daughter No problems noted. Daughter No problems noted. Brother Substance abuse Social History Social History Housing: Apartment Alcohol intake: never Patient Tobacco Use Status: Never used Tobacco e-Cigarette/Vaping Use: Never Used Advance Directives: No Current occupational status: employed Current occupation: [employer] for father Cognitive needs: No Hearing needs: No Vision needs: Yes Physical Exam ED Vital Signs: Vital Signs - 24 hr 05/22/23 08:46 Temperature 97.3 F Pulse Rate 83 Respiratory Rate 16 Blood Pressure 165/82 H Pulse Oximetry 97 Oxygen Delivery Method Room Air BMI result Body Mass Index 52.3 Appearance: Alert. Oriented X3. No acute distress. Eyes: Pupils equal, round and reactive to light. ENT: Pharynx normal. Neck: Normal inspection. Neck supple. CVS: Normal heart rate and rhythm. Pulses normal. Respiratory: No respiratory distress. Breath sounds normal. Abdomen: Soft and moderate R sided abdominal ttp no rebound, + R CVA ttp Skin: Skin warm and dry. Normal skin color. Normal skin turgor. Extremities: No lower extremity edema. No calf ttp Neuro: Oriented X 3. No motor deficit. No sensory deficit. Course Course Course Narrative: no signs of sepsis - IV ceftriaxone ordered Reevaluation(s) Reevaluation #1: pain improved after IV morphine Medical Decision Making Medical Decision Making [facility] Narrative: 62 yo female with PMH of arthritis, remote kidney stones, pre-diabetes, GERD, OTF, asthma, prior c section here with c/o R flank pain n/v and not feeling well x 4 days. At this time could be renal colic, enteritis, diverticulitis, atypical for appendicitis. Labs, UA, CT scan ordered, IV morphine for pain Differential Diagnosis Differential Diagnoses: The differential diagnosis associated with the presentation includes renal colic, enteritis, diverticulitis, atypical for appendicitis. Admission/Observation Consideration of admission/observation: Escalation of care including admission/observation considered tolerating PO discussed with Reinaldo will follow up as outpatient on Saturday Consult Healthcare Provider Management of the patient was discussed with: Mesh Cutter (Dr. Najera to review) Lab Data [facility] Lab Attestation statement: I reviewed the patient's lab results. 05/22/23 09:38 05/22/23 09:38 Labs: Lab Results 05/22/23 05/22/23 Range/Units 09:38 10:58 WBC 12.2 H (4.8-10.8) X10*3/uL RBC 4.47 (4.20-5.50) X10*6/uL Hgb 11.8 L (12.0-16.0) g/dl Hct 36.4 L (37.0-47.0) % MCV 81.4 (80.0-98.0) fL MCH 26.4 L (27.0-33.0) pg MCHC 32.4 (31.0-35.0) g/dl RDW 17.1 H (11.0-16.0) % Plt Count 351 (160-400) X10*3/uL MPV 11.1 (9.4-12.3) fL Immature Gran % (Auto) 0.3 (0.0-0.4) % Neut % (Auto) 73.5 H (45-73) % Lymph % (Auto) 19.1 L (20-40) % Wallace % (Auto) 4.4 (2-11) % Eos % (Auto) 2.2 (0-4) % Baso % (Auto) 0.5 (0-2) % Lymph # (Auto) 2.3 (1.2-4.9) X10*3/uL Wallace # (Auto) 0.5 (0.1-1.2) X10*3/uL Eos # (Auto) 0.3 (0.0-0.4) X10*3/uL Baso # (Auto) 0.1 (0.0-0.2) X10*3/uL Abs Immat Gran (auto) 0.04 H (0.00-0.03) X10*3/uL Absolute Neuts (auto) 8.9 H (2.0-8.3) x10*3/uL Absolute Nucleated RBC 0.000 (0.0-0.012) X10*3/uL Nucleated RBC % (auto) 0.0 (0.0-0.2) /100WBC Sodium 140 (135-145) mmol/L Potassium 4.3 (3.3-5.1) mmol/L Chloride 104 (96-108) mmol/L Carbon Dioxide 28 (22-29) mmol/L Anion Gap 12 (12-20) BUN 15 (9-16) mg/dL Creatinine 1.19 (0.5-1.4) mg/dL Estim Creat Clear Calc 57.8 Estimated GFR 46 Random Glucose 114 (60-115) mg/dL Calcium 9.2 (8.4-10.2) mg/dL Total Bilirubin 0.5 (0.0-1.0) mg/dL AST 13 (5-31) U/L ALT 10 (0-31) U/L Alkaline Phosphatase 95 (39-117) U/L Total Protein 7.6 (6.5-8.0) g/dL Albumin 3.9 (3.5-5.0) g/dL Lipase 8 (8-78) U/L Urine Color Cos[place] Urine Appearance Clear Urine pH 6.5 (5.0-9.0) Ur Specific [place] 1.020 (1.005-1.025) Urine Protein 30 (1+) H (Neg-Trace) mg/dL Urine Glucose (UA) Negative (Negative) mg/dL Urine Ketones 15 (Negative) mg/dL Urine Blood Large (3+) H (Negative) Urine Nitrite Positive H (Negative) Ur Leukocyte Esterase Negative (Negative) Urine RBC >20 H (0-2) /HPF Urine WBC 0-5 (0-5) /HPF Ur Squamous Epith Cells 0-2 (0-2) /HPF Urine Bacteria Trace (None Seen) Hyaline Casts 0-2 (0-2) /LPF Independent Interpretation I performed an independent interpretation of an: CT Scan (?ureteral stone) Radiology Impression Discussion of test interpretation with radiology: I have reviewed the radiologist's reading. External Record Review External record reviewed: Inpatient record Prescription Management I considered prescription management with: Pain Medication, Antibiotic and Other Medications Administered Discontinued Medications Generic Name Dose Route Start Last Admin Trade Name Freq PRN Reason Stop Dose Admin Sodium Chloride 1,000 mls @ 999 mls/hr 05/22/23 10:45 05/22/23 11:07 Ns IV 05/22/23 11:45 999 mls/hr .Q1H1M CORINA Administration Morphine Sulfate 4 mg 05/22/23 10:37 05/22/23 11:07 Morphine Sulfate 4 Mg/Ml Cartridge IVPUSH 05/22/23 10:38 4 mg ONCE ONE Administration Protocol Ondansetron HCl 4 mg 05/22/23 10:37 05/22/23 11:07 Ondansetron Hcl 4 Mg/2 Ml Vial IVPUSH 05/22/23 10:38 4 mg ONCE ONE Administration Critical Care Time Critical Care Time Critical Care Time: Yes Total Critical Care Time: 35 Attestation: pain improved after IV morphine, med consult I attest to this time spent taking care of the patient Discharge Plan Discharge Clinical Impression: Calculus of distal right ureter, Acute UTI Patient Disposition: Home, Self-Care Instructions: Urinary Tract Infection in Women (ED), Ureteral Stones (ED) Additional Instructions: Dr. Najera from Urology his office will call you Saturday AM. take all medications as prescribed. return for worsening pain, fevers, vomiting, inability to eat or drink or any other concerns. start antibiotic in the morning you were given a dose in the ED. Prescriptions: New cefuroxime axetil 250 mg tablet 250 mg PO BID 9 Days Qty: 18 0RF tamsulosin 0.4 mg capsule 0.4 mg PO DAILY 7 Days Qty: 7 0RF ondansetron 4 mg tablet,disintegrating 4 mg PO Q8H PRN (Reason: nausea and vomiting) Qty: 20 0RF oxycodone 10 mg tablet 10 mg PO Q6H PRN (Reason: pain) Qty: 14 0RF Rx Instructions: Partial Fill upon patient request. No Action topiramate [Topamax] 25 mg tablet 25 mg PO DAILY Qty: 30 0RF cholecalciferol (vitamin D3) 50 mcg (2,000 unit) capsule 50 mcg PO DAILY mecobalamin (vitamin B12) 1,000 mcg tablet,disintegrating 1,000 mcg sublingual DAILY Rx Instructions: place tablet under tongue and allow to dissolve for at least30 secs before swallowing albuterol sulfate [ProAir HFA] 90 mcg/actuation HFA aerosol inhaler 2 puff inhalation Q4-6H PRN meloxicam 15 mg tablet 15 mg PO DAILY Qty: 14 0RF phentermine 15 mg capsule 15 mg PO DAILY 30 Days Qty: 30 0RF Rx Instructions: must administer 2 hours after breakfast Referrals: Dat Najera MD [Physician] - (will call you Saturday) Stand Alone Forms: Work/School Release
[2023-05-22 10:50] LABS: Lipase 8 U/L (8-78)
[2023-05-22] MEDS: ondansetron HCL 4 MG/2 ML VIAL IVPUSH (11:07)
[2023-05-22] MEDS: Morphine Sulfate 4 MG/ML CARTRIDGE IVPUSH (11:07)
[2023-05-22] MEDS: 0.9 % Sodium Chloride 1,000 ML 999 ML IV (11:07)
[2023-05-22 11:15] LABS: Appearance Urine Clear; Glucose Urine UA Negative (Negative); Leukocyte Esterase Urine Negative (Negative); Nitrite Urine Positive (Negative); PH 6.5 (5.0-9.0); UMIC TRIGGER UACC YES; Urine Blood Large (3+) (Negative); Urine Ketones 15 mg/dL (Negative); Urine Protein 30 (1+) mg/dL (Neg-Trace)
[2023-05-22 11:16] LABS: Color Urine Orange
[2023-05-22 12:00] LABS: Bacteria Urine Trace (None Seen); Hyaline Casts Urine 0-2 /LPF (0-2); RBC Urine >20 /HPF (0-2); Squamous Epithelial Cell Urine 0-2 /HPF (0-2); UACC Culture Trigger YES; WBC Urine 0-5 /HPF (0-5)
[2023-05-22] MEDS: cefTRIAXone sodium 1 GM in 0.9 % Sodium Chloride 50 ML IV (12:31)
[2023-05-22 13:13] VITALS: BP 135/84; PULSE 64; RESP 16; TEMP 37
== END 2023-05-22 13:15 | disposition home or self-care (01) ==
PROVIDERS: Emergency Provider Emergency Medicine; PCP Internal Medicine
DX: N13.2 Hydronephrosis with renal and ureteral calculous obstruction (principal); N39.0 Urinary tract infection, site not specified
CPT/HCPCS: 36415; 74176; 80053; 81001; 83690; 85025; 87086; 96361; 96374; 96375; 99283; 99284; J0696; J2270; J2405

== ENCOUNTER 2023-05-24 09:38 | Outpatient (REF) | payer OTHER, SELFPAY | END 2023-05-24 09:39 | disposition home or self-care (01) | LOC: HO.MAMMO 09:38 | PROVIDERS: Visit Provider Internal Medicine | DX: Z12.31 Encounter for screening mammogram for malignant neoplasm of breast (principal) | CPT/HCPCS: 77063; 77067 ==

== ENCOUNTER → 2023-05-24 09:45 | Outpatient (BNV) | payer OTHER, SELFPAY | PROVIDERS: Visit Provider Radiology Diagnostic Radiology | DX: Z12.31 Encounter for screening mammogram for malignant neoplasm of breast (principal) | CPT/HCPCS: 77063; 77067 ==

== ENCOUNTER 2023-06-07 12:43 | Outpatient (AMB) | payer OTHER, SELFPAY ==
[2023-06-07 12:58] VITALS: BP 118/64; PULSE 83; O2SAT 100; BMI 52.4
--- NOTE | 2023-06-07 12:58 | A.OFFPC_ITS ---
Vital Signs 06/07/23 12:58 Height 4 ft 11 in Weight 259 lb 4 oz BMI 52.4 BP 118/64 Blood Pressure Location Rt brachial Position Sitting Pulse 83 Pulse Source Pulse Oximeter Pulse Oximetry (%) 100 Oxygen Delivery Method Room Air Intake Visit Reasons: Annual PE Allergies shellfish derived Allergy (Unknown, Verified 06/07/23 13:00) Unknown seafood Allergy (Verified 06/07/23 13:00) Unknown Medication List - Last Reconciled 06/07/23 by Franco Del Castillo MD albuterol sulfate 90 mcg/actuation (ProAir HFA) 2 puffs inhalation Q4-6H PRN cholecalciferol (vitamin D3) 50 mcg PO DAILY mecobalamin (vitamin B12) 1,000 mcg sublingual DAILY Tobacco use date assessed: 06/07/23 Dental Screening Dental Screen Date: 06/07/23 Did you have a dental visit in the last 12 months?: Yes Did you have a dental problem in the last 6 months where you did not have access to dental care?: No Was dental information given to patient?: Patient has dentist HPI Annual PE HPI Details Patient is 62-year-old female morbidly obese I have placed a referral for to be evaluated at metabolic clinic as patient is not interested bariatric surgery She also continued to have her menstrual cycle, patient have large fibroid, she has appointment with OBGYN in September I have printed the imaging and handed to patient so she can take it long Mammogram is up-to-date Colonoscopy referral placed Recently patient was in emergency room due to renal calculi, she has passed the stone Labs done in emergency room reviewed I see that her GFR was slightly low and she is slightly anemic Patient is also prediabetic We will be repeating labs again in August to ensure reversal of kidney function back to normal. for anemia I have told her to start taking iron supplement [id number] 1 daily [facility] Medical History Benign neoplasm of skull Asthma Surgical History History of breast biopsy History of tonsillectomy History of section Family History Father HTN (hypertension) Diabetes mellitus Mother HTN (hypertension) Kidney failure CVD (cardiovascular disease) Diabetes mellitus Mental health disorder Daughter No problems noted. Daughter No problems noted. 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 1. Little interest or pleasure in doing things: nearly every day 2. Feeling down, depressed, or hopeless: not at all 3. Trouble falling or staying asleep, or sleeping too much: nearly every day 4. Feeling tired or having little energy: nearly every day 5. Poor appetite or overeating: nearly every day 6. Feeling bad about yourself - or that you are a failure or have let yourself or your family down: not at all 7. Trouble concentrating on things, such as reading the newspaper or watching television: not at all 8. Moving or speaking so slowly that other people could have noticed. Or the opposite - being so fidgety or restless that you have been moving around a lot more than usual: not at all 9. Thoughts that you would be better off or of hurting yourself in some way: not at all Total score: 12 Depression Screening Interpretation: Positive Depression Screening Follow-up: Community Mental Health Worker F/U Depression Screening Done: Yes Source: Developed by Drs. River Pavon, Holley Rutledge, Anibal Mercado and colleagues, with an educational luciana from [employer]. Thrive Questionnaire Date Thrive assessed: 10/14/20 I am a: Patient What is your living situation today?: I have a steady place to live Within the past 12 months, did the food you bought not last and you didn't have the money to get more?: Never true Within the past 12 months, did you worry whether your food would run out before you got money to buy more?: Never true Do you have trouble paying for medicines?: No Do you have trouble getting transportation to medical appointments?: No Do you have trouble paying your heating and electricity bill?: I choose not to answer this question Do you have trouble taking care of your child, family member or friend?: No Do you have trouble with day-to-day activities such as bathing, preparing meals, shopping, managing finances, etc.?: No Are you currently unemployed and looking for a job?: No Are you interested in more education?: No THRIVE Score: 0 AUDIT C Alcohol Use Questionnaire (AUDIT-C) 1. How often do you have a drink containing alcohol?: Never 3. How often do you have six or more drinks on one occasion?: Never Total Score: 0 MCKENZIE-7 AMB Questionnaire MCKENZIE-7 Date MCKENZIE - 7 assessed: 06/07/23 Feeling nervous, anxious, or on edge: 0 = Not at all Not being able to stop or control worryin = Several days Worrying too much about different things: 1 = Several days Trouble relaxin = Not at all Being so restless that it is hard to sit still: 0 = Not at all Becoming easily annoyed or irritable: 0 = Not at all Feeling afraid as if something awful might happen: 0 = Not at all Total MCKENZIE-7 score (0-4 normal; 5-9 mild; 10-14 moderate; 15-21 severe): 2 Source: Developed by Drs. River Pavon, Holley Rutledge, Anibal Mercado and colleagues, with an educational luciana from [employer]. MCKENZIE-7 Assessment Billing MCKENZIE-7 Assessment Tool: MCKENZIE-7 Assessment 69851 Review of Systems Const Denies chills, Denies fever(s) and Denies headache(s) Eyes Denies blurry vision ENT Denies headache(s), Denies nasal discharge, Denies nasal obstruction, Denies odynophagia and Denies sinus pain Card Denies chest pain at rest and Denies chest pain with activity Resp Denies cough and Denies hemoptysis GI Denies diarrhea, Denies odynophagia, Denies vomiting and Denies hematemesis Reports as per HPI Musc Denies abnormal gait Skin/Breast Reports as per HPI Neuro Denies Neuro-related abnormal movements, Denies Abnormal speech present, Denies abnormal gait, Denies headache(s) and Denies Sensory deficit (Neuro) Psych Denies mood swings and Denies paranoia Endo Reports as per HPI Myron/Lymph Reports as per HPI Aller/Immun Reports as per HPI Physical exam (Primary Care) Vital Signs: Last Vital Signs Pulse 83 06/07/23 12:58 BP 118/64 06/07/23 12:58 Pulse Ox 100 06/07/23 12:58 Oxygen Delivery Method Room Air 06/07/23 12:58 BMI result Body Mass Index 52.4 Tobacco/Smoking Status: Tobacco use Status Tobacco use date assessed 06/07/23 06/07/23 13:04 Patient Tobacco Use Status Never used Tobacco 06/07/23 13:04 e-Cigarette/Vaping Use Never Used 06/07/23 13:04 PHQ-9: PHQ-9 Score PHQ-9: Total score 12 06/07/23 13:21 Depression Screening Interpretation: Positive Depression Screening Follow-up: Community Mental Health Worker F/U Thrive Assessment: Date of Thrive Assessment Date Thrive assessed 10/14/20 06/07/23 13:04 Const General: cooperative, comfortable and no acute distress Orientation/consciousness: patient oriented x3 HENMT Head: Yes normocephalic and Yes atraumatic Eyes General: appearance normal, both eyes and all related structures Pupils: Equal, round and reactive pupils present EOM: EOMs intact bilaterally Neck Neck: Yes supple and No lymphadenopathy Thyroid: Thyroid normal Lymphatic: no lymphadenopathy noted Resp Effort & Inspection: normal respiratory effort and able to speak in complete sentences Auscultation: clear to auscultation bilaterally Cardio Heart sounds: S1 normal heart sound present and S2 normal heart sound present GI Palpation (GI): Soft to palpation and nontender Auscultation: normal bowel sounds General: Yes no CVA tenderness Back/Spine/Pelvis Back: no CVA tenderness Skin General skin exam: elasticity normal and turgor normal Neuro General: patient oriented x3 and gait normal Cranial nerves: Yes Equal, round and reactive pupils present Speech: No Abnormal speech present Sensory Exam: No Sensory deficit (Neuro) Coordination: tandem gait normal and Romberg test negative Extrem General: Yes normal exam except as noted and No edema Assessment and Plan Assessment & Plan (1) Encounter for general adult medical examination with abnormal findings: Code(s): Z00.01 - Encounter for general adult medical examination with abnormal findings (2) Pre-diabetes: Code(s): R73.03 - Prediabetes (3) Chronic GERD: Code(s): K21.9 - Gastro-esophageal reflux disease without esophagitis (4) History of kidney stones: Code(s): Z87.442 - Personal history of urinary calculi (5) Nephropathy: Code(s): N28.9 - Disorder of kidney and ureter, unspecified (6) Dysfunctional uterine bleeding: Code(s): N93.8 - Other specified abnormal uterine and vaginal bleeding (7) Anemia: Code(s): D64.9 - Anemia, unspecified Qualifiers: Anemia type: iron deficiency Iron deficiency anemia type: chronic blood loss Qualified Code(s): D50.0 - Iron deficiency anemia secondary to blood loss (chronic) (8) Uterine fibroid: Code(s): D25.9 - Leiomyoma of uterus, unspecified Qualifiers: Uterine leiomyoma location: intramural Qualified Code(s): D25.1 - Intramural leiomyoma of uterus (9) Morbid obesity due to excess calories: Comment: If your BMI is between 25 and 29.9, you are overweight. If your BMI is 30 or greater, you are obese. ___ Being obese is a problem, because it increases the risks of many different healt h problems. It can also make it hard for you to move, breathe, and do other things that people who are at a healthy weight can do easily. Plus, being obese can be hard emotionally. ___ What are the health risks of being obese? Being obese increases a persons risk of developing many health problems. Here are just a few examples: __ Diabetes High blood pressure, High cholesterol, Heart disease (including heart attacks) Stroke, Sleep apnea (a disorder in which you stop breathing for short periods while asleep) Asthma, Cancer __ Does being obese shorten a persons life? Yes. Studies show that people who are obese younger than people who are a healthy weight. They also show that the risk of goes up the heavier a person is. The degree of increased risk depends on how long the person has been obese, and on what other medical problems he or she has. , Reduce your carbohydrate intake and choose carbs that are complex. Remember as a general rule of thumb, avoid highly processed foods. If it's white and soft, it's probably been stripped of its nutritional value. Change white bread to whole wheat bread, white rice to brown rice, white potatoes to sweet potatoes, white pasta to whole wheat pasta. Monitor portion sizes too: protein should be no bigger than your fist. Limit your red meat intake to only once or twice a wk. Eat more white meat but make sure to avoid creamy sauces etc. Broiling, baking or grilling is best. Increase dark, green leafy vegetables and fruits. Code(s): E66.01 - Morbid (severe) obesity due to excess calories (10) Colon cancer screening: Code(s): Z12.11 - Encounter for screening for malignant neoplasm of colon Plan Patient is 62-year-old female morbidly obese I have placed a referral for to be evaluated at metabolic clinic as patient is not interested bariatric surgery She also continued to have her menstrual cycle, patient have large fibroid, she has appointment with OBGYN in September I have printed the imaging and handed to patient so she can take it long Mammogram is up-to-date Colonoscopy referral placed Recently patient was in emergency room due to renal calculi, she has passed the stone Labs done in emergency room reviewed I see that her GFR was slightly low and she is slightly anemic Patient is also prediabetic We will be repeating labs again in August to ensure reversal of kidney function back to normal. for anemia I have told her to start taking iron supplement [id number] 1 daily Breast exam declined by patient Orders: Orders Hemoglobin A1c 2 Months D25.9 - Leiomyoma of uterus, unspecified, D64.9 - Anemia, unspecified, E66.01 - Morbid (severe) obesity due to excess calories, K21.9 - Gastro-esophageal reflux disease without esophagitis, N28.9 - Disorder of kidney and ureter, unspecified, N93.8 - Other specified abnormal uterine and vaginal bleeding, R73.03 - Prediabetes, Z00.01 - Encounter for general adult medical examination with abnormal findings, Z87.442 - Personal history of urinary calculi Complete Blood Count Auto Diff 2 Months D25.9 - Leiomyoma of uterus, unspecified, D64.9 - Anemia, unspecified, K21.9 - Gastro-esophageal reflux disease without esophagitis, N28.9 - Disorder of kidney and ureter, unspecified, N93.8 - Other specified abnormal uterine and vaginal bleeding, R73.03 - Prediabetes, Z00.01 - Encounter for general adult medical examination with abnormal findings, Z87.442 - Personal history of urinary calculi TSH reflex Free T4 2 Months D25.9 - Leiomyoma of uterus, unspecified, D64.9 - Anemia, unspecified, K21.9 - Gastro-esophageal reflux disease without esophagitis, N28.9 - Disorder of kidney and ureter, unspecified, N93.8 - Other specified abnormal uterine and vaginal bleeding, R73.03 - Prediabetes, Z00.01 - Encounter for general adult medical examination with abnormal findings, Z87.442 - Personal history of urinary calculi Comprehensive Met. Panel 2 Months D25.9 - Leiomyoma of uterus, unspecified, D64.9 - Anemia, unspecified, K21.9 - Gastro-esophageal reflux disease without esophagitis, N28.9 - Disorder of kidney and ureter, unspecified, N93.8 - Other specified abnormal uterine and vaginal bleeding, R73.03 - Prediabetes, Z00.01 - Encounter for general adult medical examination with abnormal findings, Z87.442 - Personal history of urinary calculi LDL Cholesterol Direct 2 Months D25.9 - Leiomyoma of uterus, unspecified, D64.9 - Anemia, unspecified, K21.9 - Gastro-esophageal reflux disease without esophagitis, N28.9 - Disorder of kidney and ureter, unspecified, N93.8 - Other specified abnormal uterine and vaginal bleeding, R73.03 - Prediabetes, Z00.01 - Encounter for general adult medical examination with abnormal findings, Z87.442 - Personal history of urinary calculi Referrals Metabolic Clinic Referral E66.01 - Morbid (severe) obesity due to excess calories Gastroenterology Referral Z12.11 - Encounter for screening for malignant neoplasm of colon Coding Level of Care Code Est Pt Prev Care 40-64y(39278) Diagnoses Encounter for general adult medical examination with abnormal findings Z00.01 Pre-diabetes R73.03 Chronic GERD K21.9 History of kidney stones Z87.442 Nephropathy N28.9 Dysfunctional uterine bleeding N93.8 Iron deficiency anemia due to chronic blood loss D50.0 Anemia type: iron deficiency Iron deficiency anemia type: chronic blood loss Intramural leiomyoma of uterus D25.1 Uterine leiomyoma location: intramural Morbid obesity due to excess calories E66.01 Colon cancer screening Z12.11 Additional Codes MCKENZIE-7 Assessment Billing - MCKENZIE-7 Assessment Tool: MCKENZIE-7 Assessment [id number] ([id number])
== END 2023-06-07 16:18 | disposition home or self-care (01) ==
PROVIDERS: Visit Provider Internal Medicine
DX: Z00.00 Encounter for general adult medical examination without abnormal findings (principal); E66.01 Morbid (severe) obesity due to excess calories; Z68.43 Body mass index [BMI] 50.0-59.9, adult; R73.03 Prediabetes; K21.9 Gastro-esophageal reflux disease without esophagitis; Z87.442 Personal history of urinary calculi; N28.9 Disorder of kidney and ureter, unspecified; N93.8 Other specified abnormal uterine and vaginal bleeding; D50.0 Iron deficiency anemia secondary to blood loss (chronic); D25.1 Intramural leiomyoma of uterus; Z12.11 Encounter for screening for malignant neoplasm of colon
CPT/HCPCS: 99396

== ENCOUNTER 2023-07-30 07:45 | Outpatient (AMB) | payer OTHER, SELFPAY ==
--- NOTE | 2023-07-30 07:49 | MHC.OFFVIS ---
Intake Vital Signs 07/30/23 07:49 Height 4 ft 11 in Intake Visit Reasons: Knee gel Intake Note: Mari is a 63 year old female who presents for a follow up after her bilateral knee Euflexxa gel injections on 03/06/2023. The patient states that she got fairly good relief from the viscosupplementation injections initially. Her knee pains have returned. She has tried Tylenol and Advil which gave her minimal relief. She denies any locking or giving way. She has had cortisone injections which gave her no relief. She wishes to hold off on surgery for as long as possible. The patient also has intermittent discomfort along the lateral aspect of her right foot. She denies any weakness in either lower extremity. Allergies shellfish derived Allergy (Unknown, Verified 07/30/23 07:53) Unknown seafood Allergy (Verified 07/30/23 07:53) Unknown Medication List - Last Reconciled 07/30/23 by Luis Rizo MD albuterol sulfate 90 mcg/actuation (ProAir HFA) 2 puffs inhalation Q4-6H PRN cholecalciferol (vitamin D3) 50 mcg PO DAILY mecobalamin (vitamin B12) 1,000 mcg sublingual DAILY PFSH Medical History Benign neoplasm of skull Asthma Surgical History History of breast biopsy History of tonsillectomy History of section Family History Father HTN (hypertension) Diabetes mellitus Mother HTN (hypertension) Kidney failure CVD (cardiovascular disease) Diabetes mellitus Mental health disorder Daughter No problems noted. Daughter No problems noted. 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 Cognitive needs: No Hearing needs: No Vision needs: Yes Physical Exam Const Other: Well-nourished well-developed very friendly female awake alert and oriented x3 in no acute distress Extrem Other: Bilateral lower extremity examination shows good capillary refill, no skin lesions noted, normal sensation light touch Bilateral knee examination shows minimal effusions, palpable crepitus with range of motion, pain with range of motion, no instability Right hip examination shows full range of motion when compared to her left hip, tenderness over her bursa, no overlying skin lesions Assessment & Plan Assessment & Plan (1) Arthritis of right knee: Code(s): M17.11 - Unilateral primary osteoarthritis, right knee (2) Arthritis of left knee: Code(s): M17.12 - Unilateral primary osteoarthritis, left knee (3) Bursitis of hip, right: Code(s): M70.71 - Other bursitis of hip, right hip Plan Ms. Horton presents with bilateral knee pains due to degenerative joint disease as well as right hip pain due to greater trochanteric bursitis. I had a lengthy discussion with the patient regarding the treatment options. The patient wishes to hold off on surgery for as long as possible. I agree with this plan. She has not gotten good relief from cortisone injections in the past. Thus, I will see whether not her insurance company will cover another series of viscosupplementation injections for both of her knees. I will see her back once the injections are available. At this point the patient's right hip discomfort is tolerable to her. She will continue with her home exercise program. Feel free to call me at any time should questions regarding her orthopedic management arise. I spent 22 minutes in reviewing the patient's records and imaging studies, seeing the patient and documenting in the medical record. Coding Level of Care Code Est Pt Level 2 (69311) Diagnoses Arthritis of right knee M17.11 Arthritis of left knee M17.12 Bursitis of hip, right M70.71
== END 2023-07-30 08:03 | disposition home or self-care (01) ==
PROVIDERS: PCP Internal Medicine; Visit Provider Orthopaedic Surgery
DX: M17.0 Bilateral primary osteoarthritis of knee (principal); M17.12 Unilateral primary osteoarthritis, left knee; M70.71 Other bursitis of hip, right hip
CPT/HCPCS: 99213

== ENCOUNTER → 2023-07-30 07:45 | Outpatient (BNVA) | payer OTHER, SELFPAY | PROVIDERS: PCP Internal Medicine; Visit Provider Orthopaedic Surgery | DX: M17.0 Bilateral primary osteoarthritis of knee (principal); M70.71 Other bursitis of hip, right hip | CPT/HCPCS: 99212 ==

== ENCOUNTER 2023-09-04 09:38 | Outpatient (AMB) | payer OTHER, SELFPAY ==
[2023-09-04 09:45] VITALS: BMI 52.3
--- NOTE | 2023-09-04 09:45 | MHC.OFFVIS ---
Vital Signs 09/04/23 09:45 Height 4 ft 11 in Weight 259 lb BMI 52.3 Intake Visit Reasons: INJ- Bilateral knee #1 Euflexxa gel inj. Intake Note: Mari is a 63 year old female who presents for her #1 Bilateral knee Euflexxa gel injections. The patient describes her bilateral knee pains as sharp in nature. She has had cortisone injections which gave her minimal relief. She has had Euflexxa injections which gave her fairly good relief. She wishes to hold off on surgery for as long as possible. She has tried Tylenol and anti-inflammatory medicines which gave her only mild relief. Allergies shellfish derived Allergy (Unknown, Verified 09/04/23 09:49) Unknown seafood Allergy (Verified 09/04/23 09:49) Unknown Medication List - Last Reconciled 09/05/23 by Luis Rizo MD albuterol sulfate 90 mcg/actuation (ProAir HFA) 2 puffs inhalation Q4-6H PRN cholecalciferol (vitamin D3) 50 mcg PO DAILY mecobalamin (vitamin B12) 1,000 mcg sublingual DAILY PFS Medical History Benign neoplasm of skull Asthma Surgical History History of breast biopsy History of tonsillectomy History of section Family History Father HTN (hypertension) Diabetes mellitus Mother HTN (hypertension) Kidney failure CVD (cardiovascular disease) Diabetes mellitus Mental health disorder Daughter No problems noted. Daughter No problems noted. 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 Cognitive needs: No Hearing needs: No Vision needs: Yes Physical Exam Vital Signs: BMI result Body Mass Index 52.3 Const Other: Well-nourished well-developed very friendly female awake alert and oriented x3 in no acute distress Extrem Other: Bilateral lower extremity examination shows good capillary refill, no skin lesions noted, normal sensation light touch Bilateral knee examination shows minimal effusions, palpable crepitus with range of motion, pain with range of motion, no instability Office Procedures Joint Injection/Drain Joint Injection/Drain Primary Site: left knee Prep: site was prepped using aseptic technique Injected: 20 mg of (Euflexxa viscosupplementation) and 1% plain lidocaine Procedure: The patient tolerated the procedure well Coding 11596 - Large joint Procedure code (CPT) selection complete Joint Injection/Drain Joint Injection/Drain Primary Site: right knee Prep: site was prepped using aseptic technique Injected: 20 mg of (Euflexxa viscosupplementation) and 1% plain lidocaine Procedure: The patient tolerated the procedure well Coding 85676 - Large joint Procedure code (CPT) selection complete Results Reviewed Results Reviewed: X-rays of the patient's bilateral knee show joint space narrowing, subchondral sclerosis, no acute bony abnormalities Assessment & Plan Assessment & Plan (1) Arthritis of left knee: Code(s): M17.12 - Unilateral primary osteoarthritis, left knee Category: Medical (2) Arthritis of right knee: Code(s): M17.11 - Unilateral primary osteoarthritis, right knee Category: Medical Plan Ms. Horton presents with bilateral knee pains due to degenerative joint disease. I had a lengthy discussion with the patient regarding the treatment options. She wishes to hold off on surgery for as long as possible. I agree with this plan. She has not gotten good relief from cortisone injections in the past. Thus, the risks and benefits of bilateral knee Euflexxa injections were discussed at length with the patient. The patient wished to proceed. She tolerated the injections well. She will continue with her home exercise program. She will follow up next week as scheduled. Feel free to call me at any time should questions regarding her orthopedic management arise. I spent 21 minutes in reviewing the patient's records and imaging studies, seeing the patient and documenting in the medical record. Orders: Orders AMB Joint Injection/Aspiration 09/04/23 M17.12 - Unilateral primary osteoarthritis, left knee AMB Joint Injection/Aspiration 09/04/23 M17.11 - Unilateral primary osteoarthritis, right knee Coding Level of Care Code Est Pt Level 3 (04257) Diagnoses Arthritis of left knee M17.12 Arthritis of right knee M17.11 CPT Codes Coding - 64165 Large joint: 15184 - Large joint ([id number]) Coding - 86480 Large joint: 19780 - Large joint ([id number])
== END 2023-09-04 10:20 | disposition home or self-care (01) ==
PROVIDERS: PCP Internal Medicine; Visit Provider Orthopaedic Surgery
DX: M17.0 Bilateral primary osteoarthritis of knee (principal)
CPT/HCPCS: 20610; 99213

== ENCOUNTER → 2023-09-04 09:38 | Outpatient (BNVA) | payer OTHER, SELFPAY | PROVIDERS: PCP Internal Medicine; Visit Provider Orthopaedic Surgery | DX: M17.0 Bilateral primary osteoarthritis of knee (principal) | CPT/HCPCS: 20610; 99212; J7323 ==

== ENCOUNTER 2023-09-11 08:33 | Outpatient (AMB) | payer OTHER, SELFPAY ==
[2023-09-11 08:36] VITALS: BMI 52.3
--- NOTE | 2023-09-11 08:36 | A.OFFVIS_ITS ---
Vital Signs 09/11/23 08:36 Height 4 ft 11 in Weight 259 lb BMI 52.3 Intake Visit Reasons: INJ- Bilateral knee #2 Euflexxa gel inj. Intake Note: Mari is a 63 year old female who presents for her #2 bilateral knee Euflexxa gel injections. The patient states that she got mild relief from the 1st set of injections. She continues with her home exercise program. Allergies shellfish derived Allergy (Unknown, Verified 09/11/23 08:40) Unknown seafood Allergy (Verified 09/11/23 08:40) Unknown Medication List - Last Reconciled 09/11/23 by Luis Rizo MD albuterol sulfate 90 mcg/actuation (ProAir HFA) 2 puffs inhalation Q4-6H PRN cholecalciferol (vitamin D3) 50 mcg PO DAILY mecobalamin (vitamin B12) 1,000 mcg sublingual DAILY PFSH Medical History Benign neoplasm of skull Asthma Surgical History History of breast biopsy History of tonsillectomy History of section Family History Father HTN (hypertension) Diabetes mellitus Mother HTN (hypertension) Kidney failure CVD (cardiovascular disease) Diabetes mellitus Mental health disorder Daughter No problems noted. Daughter No problems noted. 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 Cognitive needs: No Hearing needs: No Vision needs: Yes Physical Exam Vital Signs: BMI result Body Mass Index 52.3 Extrem Other: Bilateral lower extremity examination shows good capillary refill, no skin lesions noted, normal sensation light touch Bilateral knee examination shows minimal effusions, palpable crepitus with range of motion, pain with range of motion, no instability Office Procedures Joint Injection/Drain Joint Injection/Drain Primary Site: left knee Prep: site was prepped using aseptic technique Injected: 20 mg of (Euflexxa viscosupplementation) and 1% plain lidocaine Procedure: The patient tolerated the procedure well Coding 67389 - Large joint Procedure code (CPT) selection complete Joint Injection/Drain Joint Injection/Drain Primary Site: right knee Prep: site was prepped using aseptic technique Injected: 20 mg of (Euflexxa viscosupplementation) and 1% plain lidocaine Procedure: The patient tolerated the procedure well Coding 04759 - Large joint Procedure code (CPT) selection complete Results Reviewed Results Reviewed: X-rays of the patient's bilateral knee show joint space narrowing, subchondral sclerosis, no acute bony abnormalities Assessment & Plan Assessment & Plan (1) Arthritis of left knee: Code(s): M17.12 - Unilateral primary osteoarthritis, left knee Category: Medical (2) Arthritis of right knee: Code(s): M17.11 - Unilateral primary osteoarthritis, right knee Category: Medical Plan Ms. Horton presents with bilateral knee pains due to degenerative joint disease. The risks and benefits of a 2nd set of Euflexxa injections were discussed at length with the patient. The patient wished to proceed. She tolerated the bilateral knee injections well. She will follow up next week as scheduled. Feel free to call me at any time should questions regarding her orthopedic management arise. Orders: Orders AMB Joint Injection/Aspiration 09/11/23 M17.12 - Unilateral primary osteoarthritis, left knee AMB Joint Injection/Aspiration 09/11/23 M17.11 - Unilateral primary osteoarthritis, right knee Coding Level of Care Code Procedure Only Diagnoses Arthritis of left knee M17.12 Arthritis of right knee M17.11 CPT Codes Coding - 20343 Large joint: 55260 - Large joint ([id number]) Coding - 91754 Large joint: 56627 - Large joint ([id number])
== END 2023-09-11 08:54 | disposition home or self-care (01) ==
PROVIDERS: PCP Internal Medicine; Visit Provider Orthopaedic Surgery
DX: M17.0 Bilateral primary osteoarthritis of knee (principal)
CPT/HCPCS: 20610

== ENCOUNTER → 2023-09-11 08:33 | Outpatient (BNVA) | payer OTHER, SELFPAY | PROVIDERS: PCP Internal Medicine; Visit Provider Orthopaedic Surgery | DX: M17.0 Bilateral primary osteoarthritis of knee (principal) | CPT/HCPCS: 20610; J7323 ==

== ENCOUNTER 2023-09-18 10:42 | Outpatient (AMB) | payer OTHER, SELFPAY ==
--- NOTE | 2023-09-18 10:54 | A.OFFVIS_ITS ---
Intake Visit Reasons: INJ- Bilateral knee #3 Euflexxa gel inj. Intake Note: Mari is a 63 year old female who presents for her #3 bilateral knee Euflexxa gel injections. She states the injections are helping with her pain. She denies any fevers or chills. She continues with her home exercise program. Allergies shellfish derived Allergy (Unknown, Verified 09/18/23 11:09) Unknown seafood Allergy (Verified 09/18/23 11:09) Unknown Medication List - Last Reconciled 09/19/23 by Luis Rizo MD albuterol sulfate 90 mcg/actuation (ProAir HFA) 2 puffs inhalation Q4-6H PRN cholecalciferol (vitamin D3) 50 mcg PO DAILY mecobalamin (vitamin B12) 1,000 mcg sublingual DAILY PFSH Medical History Benign neoplasm of skull Asthma Surgical History History of breast biopsy History of tonsillectomy History of section Family History Father HTN (hypertension) Diabetes mellitus Mother HTN (hypertension) Kidney failure CVD (cardiovascular disease) Diabetes mellitus Mental health disorder Daughter No problems noted. Daughter No problems noted. 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 Cognitive needs: No Hearing needs: No Vision needs: Yes Physical Exam Extrem Other: Bilateral knee examination shows minimal effusions, mild crepitus with range of motion, mild discomfort with range of motion, no instability Results Reviewed Results Reviewed: X-rays of the patient's bilateral knee show joint space narrowing, subchondral sclerosis, no acute bony abnormalities Assessment & Plan Assessment & Plan (1) Arthritis of left knee: Code(s): M17.12 - Unilateral primary osteoarthritis, left knee Category: Medical (2) Arthritis of right knee: Code(s): M17.11 - Unilateral primary osteoarthritis, right knee Category: Medical Plan Ms. Horton presents with bilateral knee pains due to degenerative joint disease. I had a lengthy discussion with the patient regarding the treatment options. The risks and benefits of a 3rd set of Euflexxa injections were discussed at length with the patient. The patient wished to proceed. She tolerated the injections well. She will continue with her home exercise program. She will follow up with me on an as-needed basis should her symptoms not plateau at an unacceptable level over the next few months. Feel free to call me at any time should questions regarding her orthopedic management arise. I spent 21 minutes in reviewing the patient's records and imaging studies, seeing the patient and documenting in the medical record. Orders: Orders AMB Joint Injection/Aspiration 09/18/23 M17.12 - Unilateral primary osteoarthritis, left knee AMB Joint Injection/Aspiration 09/18/23 M17.11 - Unilateral primary osteoarthritis, right knee Coding Level of Care Code Procedure Only Diagnoses Arthritis of left knee M17.12 Arthritis of right knee M17.11
== END 2023-09-18 11:39 | disposition home or self-care (01) ==
PROVIDERS: PCP Internal Medicine; Visit Provider Orthopaedic Surgery
DX: M17.0 Bilateral primary osteoarthritis of knee (principal)
CPT/HCPCS: 20610

== ENCOUNTER → 2023-09-18 10:42 | Outpatient (BNVA) | payer OTHER, SELFPAY | PROVIDERS: PCP Internal Medicine; Visit Provider Orthopaedic Surgery | DX: M17.0 Bilateral primary osteoarthritis of knee (principal) | CPT/HCPCS: 20610; J7323 ==

== ENCOUNTER 2024-05-27 09:28 | Outpatient (AMB) | payer OTHER, SELFPAY ==
--- NOTE | 2024-05-27 09:38 | A.OFFVIS_ITS ---
Vital Signs 05/27/24 09:39 Height 4 ft 11 in Weight 259 lb BMI 52.3 Intake Visit Reasons: Bilateral knee pains Intake Note: Mari is a 63 year old female who presents with complaints of progressively worsening bilateral knee pains. She describes her pains as sharp in nature. Her pains have gotten worse over the last few years in spite of continued non operative treatments. She has done physical therapy exercises which aggravated her pain. She has also tried Tylenol and anti-inflammatory medicines which gave her minimal relief. The patient wishes to hold off on surgery for as long as possible. She has had cortisone injections in the past which gave her minimal relief. Allergies shellfish derived Allergy (Unknown, Verified 05/27/24 09:39) Unknown seafood Allergy (Verified 05/27/24 09:39) Unknown Medication List - Last Reconciled 05/27/24 by Luis Rizo MD albuterol sulfate 90 mcg/actuation (ProAir HFA) 2 puffs inhalation Q4-6H PRN cholecalciferol (vitamin D3) 50 mcg PO DAILY mecobalamin (vitamin B12) 1,000 mcg sublingual DAILY PFSH Medical History Benign neoplasm of skull Asthma Surgical History History of breast biopsy History of tonsillectomy History of section Family History Father HTN (hypertension) Diabetes mellitus Mother HTN (hypertension) Kidney failure CVD (cardiovascular disease) Diabetes mellitus Mental health disorder Daughter No problems noted. Daughter No problems noted. 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 Cognitive needs: No Hearing needs: No Vision needs: Yes Physical Exam Vital Signs: BMI result Body Mass Index 52.3 Const Other: Well-nourished well-developed very friendly female awake alert and oriented x3 in no acute distress Extrem Other: Bilateral lower extremity examination shows good capillary refill, no skin lesions noted, normal sensation light touch Bilateral knee examination shows minimal effusions, palpable crepitus with range of motion, pain with range of motion, no instability Office Procedures AMB Joint Injection/Aspiration Joint Injection/Aspiration Primary Site: left knee Prep: site was prepped using aseptic technique Injected: 20 mg of (Euflexxa viscosupplementation) and 1% plain lidocaine Procedure: The patient tolerated the procedure well Coding - Large joint Procedure code (CPT) selection complete AMB Joint Injection/Aspiration Joint Injection/Aspiration Primary Site: right knee Prep: site was prepped using aseptic technique Injected: 20 mg of (Euflexxa viscosupplementation) and 1% plain lidocaine Procedure: The patient tolerated the procedure well Coding - Large joint Procedure code (CPT) selection complete Results Reviewed Results Reviewed: X-rays of the patient's bilateral knees taken previously show joint space narrowing, subchondral sclerosis, no acute bony abnormalities Assessment & Plan Assessment & Plan (1) Osteoarthritis of left knee: Code(s): M17.12 - Unilateral primary osteoarthritis, left knee Category: Medical (2) Osteoarthritis of right knee: Code(s): M17.11 - Unilateral primary osteoarthritis, right knee Category: Medical Plan Ms. Horton presents with bilateral knee pains due to osteoarthritis. The risks and benefits of bilateral knee Euflexxa viscosupplementation injections were discussed at length with the patient. The patient wished to proceed. She tolerated the injections well. She will continue with her home exercise program. She will follow up as scheduled. Feel free to call me at any time should questions regarding her orthopedic management arise. I spent 21 minutes in reviewing the patient's records and imaging studies, seeing the patient and documenting in the medical record. Orders: Orders AMB Joint Injection/Aspiration Today M17.12 - Unilateral primary osteoarthritis, left knee AMB Joint Injection/Aspiration Today M17.11 - Unilateral primary osteoarthritis, right knee Coding Level of Care Code Est Pt Level 3 (19386) Complex EM visit Add On G2211 Diagnoses Osteoarthritis of left knee M17.12 Osteoarthritis of right knee M17.11 CPT Codes Coding - 61659 Large joint: 06743 - Large joint ([id number]) Coding - 41247 Large joint: 59637 - Large joint ([id number])
[2024-05-27 09:39] VITALS: BMI 52.3
--- OUTSIDE RECORDS SUMMARY | 2024-05-27 10:41 | XMS_ITS | Clinical Summary ---
Author Organization [facility] it Address [address] [place] [address] Care Team Providers Care Cia Agent Name Role Phone Fauzia Moreno Primary Care Provider [phone] Surgical History Surgery Date Site/Laterality Comments SECTION 1983 PROCEDURE: HISTORICAL Family History Medical History Relation Name Comments COPD Mother Diabetes Mother and father Other: ca kidney Mother Colon cancer Paternal Grandmother Breast cancer Neg Hx Heart attack Neg Hx Ovarian cancer Neg Hx Relation Name Status Comments Mother Paternal Grandmother Social History Tobacco Use Types Packs/Day Years Used Date Smoking Tobacco: Never Alcohol Use Standard Drinks/Week Comments Yes 0 (1 standard drink = 0.6 oz pur e alcohol) Comments Unknown Sex and Gender Information Value Date Recorded Sex Assigned at Not on file Legal Sex Female 10:03 AM EST Gender Identity Not on file Sexual Orientation Not on file Obstetrics History Plan of Treatment Health Maintenance Due Date Last Done Comments Pneumococcal Vaccine: 50+ Ye ars (1 of 2 - PCV) 1981 Pneumococcal Vaccine: Pediat rics (0 to 5 Years) and At-Risk Patients (6 to 64 Years) (1 of 2 - PCV) 1981 Cervical Cancer Screening: P ap Smear 07/02/1983 Zoster Vaccines (1 of 2) 2012 Breast Cancer Screening 11/30/2019 11/29/2017 DTaP,Tdap,and Td Vaccines (2 - Td or Tdap) 02/24/2022 02/25/2012 Cholesterol Screening (Lipid Panel) 03/13/2022 Colorectal Cancer Screening: Colonoscopy 03/13/2022 Depression Screening 03/13/2022 HIV Screening 03/13/2022 Hepatitis C Screening 03/13/2022 Social Influencers of Health Screening 03/13/2022 RSV Immunization Patients 60 + Years Old (1 - Risk 60-74 years 1-dose series) 2022 COVID-19 Vaccine (1 - 2023-2 5 season) 2023 Influenza Vaccine (#1) 2023 HIB Vaccines Aged Out No longer eligi ble based on patient's age to complete this topic HPV Vaccines Aged Out No longer eligi ble based on patient's age to complete this topic Hepatitis A Vaccines Aged Out No long er eligible based on patient's age to complete this topic Hepatitis B Vaccines Aged Out No long er eligible based on patient's age to complete this topic IPV Vaccines Aged Out No longer eligi ble based on patient's age to complete this topic MMR Vaccines Aged Out No longer eligi ble based on patient's age to complete this topic Meningococcal ACWY Vaccine Aged Out N o longer eligible based on patient's age to complete this topic Meningococcal B Vacine Aged Out No lo nger eligible based on patient's age to complete this topic RSV Immunization Patients Un uyen 20 months Aged Out No longer eligible b ased on patient's age to complete this topic Varicella Vaccines Aged Out No longer eligible based on patient's age to complete this topic Procedures Procedure Name Priority Date/Time Associated Diagnosis Comments MAMMOGRAM SCREENING BILATERAL 3D CLAIR WITH CAD Routine 11/29/2017 2:23 PM EDT Encounter for screening mammogram for malignant neoplasm of breast from Last 3 Months or Most Recently Relevant to Health Maintenance Results * MAMMOGRAM SCREENING BILATERAL 3D CLAIR WITH CAD (11/29/2017 2:23 PM EDT) Anatomical Region Laterality Modality Mammography 09/13/2017 10:3 9 AM EDT Narrative 12/02/2017 1:47 PM EDT This is a summary report. The complete report is available in the patient's medical record. If you cannot access the medical record, please contact the sending organization for a detailed fax or copy. Exam Performed: Screening bilateral mammogram Exam History: Screening Comparison: 08/15/2016 Technique: Standard views. The CAD was used. Tomosynthesis was utilized. C views were also performed. Findings: No dominant mass like lesions, areas of architectural distortion or suspicious microcalcifications are identified. There are scattered typically benign calcifications within each breast. Breast density: The bilateral breasts are comprised of predominantly fatty tissue (0-25%). Density category A Impression: No mammographic evidence for malignancy. Recommend routine annual screening The results of this examination have been communicated to the patient through a lay letter in accordance with the Mammography Quality Standards Act. BIRADS 2 (Benign) - [place] [id number] Report reviewed and signed by : Dr. River Turpin MD on 12/02/2017 1:47 PM. Workstation Name - [id number] Procedure Note River Turpin MD - 04/07/2022 This is a summary report. The complete report is available in thepatient's medical record. If you cannot access the medical record, pleasecontact the sending organization for a detailed fax or copy. Exam Performed: Screening bilateral mammogram Exam History: Screening Comparison: 08/15/2016 Technique: Standard views. The CAD was used. Tomosynthesis was utilized. Cviews were also performed. Findings: No dominant mass like lesions, areas of architectural distortion orsuspicious microcalcifications are identified. There are scatteredtypically benign calcifications within each breast. Breast density: The bilateral breasts are comprised of predominantly fattytissue (0-25%). Density category A Impression: No mammographic evidence for malignancy. Recommend routine annual screening The results of this examination have been communicated to the patientthrough a lay letter in accordance with the Mammography Quality StandardsAct. BIRADS 2 (Benign) - [place] [id number] Report reviewed and signed by : Dr. River Turpin MD on 12/02/2017 1:47 PM.Workstation Name - [id number] Froylan Jones DO IMG BI PROCEDURES Final Result from Last 3 Months or Most Recently Relevant to Health Maintenance Care Teams Cia Agent Relationship Specialty Start Date End Date Fauzia Moreno DO [address] [place] [address] PCP - General Pediatrics 11/14/16
--- OUTSIDE RECORDS SUMMARY | 2024-05-27 10:41 | XMS_ITS | Clinical Summary ---
Author Organization [facility] Address [address] [place] [address] Care Team Providers Care Power Wood Sawyer Name Role Phone Fauzia Moreno DO Primary Care Provider [phone] Family History Medical History Relation Name Comments Breast cancer Neg Hx Colon cancer Neg Hx Endometrial cancer Neg Hx Ovarian cancer Neg Hx Social History Tobacco Use Types Packs/Day Years Used Date Smoking Tobacco: Never Assessed Sex and Gender Information Value Date Recorded Sex Assigned at Not on file Gender Identity Not on file Sexual Orientation Not on file Last Filed Vital Signs Vital Sign Reading Time Taken Comments Blood Pressure - - Pulse - - Temperature - - Respiratory Rate - - Oxygen Saturation - - Inhaled Oxygen Concentration - - Weight 113.4 kg (250 lb) 06/19/2018 11:55 AM EST Height 149.9 cm (4' 11 ) 06/19/2018 11:55 AM EST Body Mass Index 50.49 06/19/2018 11:55 AM EST Plan of Treatment Health Maintenance Due Date Last Done Comments Hepatitis C Screening 1960 COVID-19 Vaccine (#1) 01/01/1963 Depression Screening 1974 Preventative Health Evaluation 1980 DTap / Tdap / Td (1 - Tdap) 1981 Cervical Cancer Screening (Pap Smear) 07/02/1983 Colon Cancer Screening (Colonoscopy) 07/02/2007 Shingrix-Zoster Vaccine (1 o f 2) 2012 Breast Cancer Screening (Mammogram) 11/30/2019 11/29/2017, 08/15/2016 Influenza Vaccine (#1) 2023 RSV Adult > 60+ Yrs or (1 - 1-dose 75+ series) 2037 Hepatitis B Vaccines Aged Out No long er eligible based on patient's age to complete this topic Pneumococcal Vaccine Aged Out No long er eligible based on patient's age to complete this topic RSV Ped < 20 months Aged Out No longe r eligible based on patient's age to complete this topic Care Teams Power Wood Sawyer Relationship Specialty Start Date End Date Fauzia Moreno DO PCP - General Pediatrics 11/14/16
--- OUTSIDE RECORDS SUMMARY | 2024-05-27 10:41 | XMS_ITS ---
Author Organization [employer] [facility] Address [address] [place] [address] [address] [place] [address] Care Team Providers Care Furnace Brazer Name Role Phone MATTHIEUANTOLIN Primary Care Provider DAVID Pham Unavailable [phone] REASON FOR VISIT HSONO/EB/AUB Encounters Encounter Location Date Provider Diagnosis [facility] [address] [address] 11/01/2023 DAVID FOLEY Abnormal uterine and vaginal bleeding, unspecified N93.9 Assessments Encounter Date Diagnosis (ICD Code) Assessment Notes Treatment Notes Treatment Clinical Notes Section Notes 11/01/2023 Abnormal uterine and vaginal bleeding, unspecified (ICD-10 - N93.9) Plan Of Treatment Next Appt Details Follow Up: prn, Reason: Provider Name:DAVID Trejo, 09/15/2024 09:00:00 AM, [address] [place] [address], [address], [place], [address], Procedure Notes * Category Sub-Category Detail Notes [...] solution Progress Notes * MARISOL CHAPARRODOB: 3 (63 yo F)Acc No.[id number]:11/01/2023 Patient:?MARISOL CHAPARRO Provider:?DAVID FOLEY MD :1960???Age:63 Y???Sex:Female D ate:11/01/2023 Address:[address] [place] [address] Pcp:ANTOLIN SOMMERS Subjective: * Chief Complaints: * ???1. HSONO/EB/AUB. 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 Her BMI was 54, which increases her risk for endometrial hyperplasia and carcinoma. * Medical History:? Objective: * Vitals:? Assessment: * Assessment: 1.?Abnormal uterine and vagi nal bleeding, unspecified - N93.9 (Primary)??? Plan: * Treatment: * Procedures:?Sonohysterogram:?procedure?Cervix prepped with aseptic solution.?Endometrial biopsy :? Test:?__.?Consent:?General procedure, indications, risks, benefits, alternative treatments, and expected outcomes have been discussed with this patient. She has had an opportunity to ask questions, and all questions have been answered by me. She verbalizes understanding and to the best of my knowledge I feel the patient has been adequately informed and consented. The consent form has been signed..?Prep:?The patient was placed in the dorsal lithotomy position and a pelvic examination performed with the results documented above. A speculum was inserted into the vagina and the cervix cleaned with an antiseptic solution.?Procedure:?A speculum was placed in the vaginal vault. [...] the biopsy are available in approximately one week..? * Procedure Codes:?39157 URINE TEST, 30219 CATHETER FOR HYSTEROGRAPHY, 05211 BIOPSY OF UTERUS LINING * Follow Up:?prn * Images: Billing Information: * Visit Code:? * Procedure Codes:? 14321 URINE TEST. 41647 CATHETER FOR HYSTEROGRAPHY. 07960 BIOPSY OF UTERUS LINING. * Electronic signature of DAVID FOLEY MD on 05/27/2024 at 10:41 AM EST Sign off status: Pending * Provider:?DAVID FOLEY MD Date:?2023 Generated for Dorinda nation/Rene/Joeitting on:?05/27/2024 10:41 AM EST
--- OUTSIDE RECORDS SUMMARY | 2024-05-27 10:41 | XMS_ITS | Clinical Summary ---
Author Organization [facility] Address [address] [place] [address] Care Team Providers Care Turkey Roll Maker Name Role Phone Fauzia Moreno Primary Care Provider [phone] Allergies Active Allergy Reactions Criticality Noted Date Comments Seafood Anaphylaxis High 06/12/2018 Medications Medication Sig Dispensed Refills Start Date End Date Status PROAIR RESPICLICK 108 (90 Base) MCG/ACT inhaler 1 puff by Mouth/Oral Cavity route as needed. 04/01/2018 Active Na Sulfate-K Sulfate-Mg Sulf (SUPREP BOWEL PREP KIT) 17.5-3.13-1.6 GM/177ML SolutionIndications:S pecial screening for malignant neoplasms, colon Take two 177 mL bottles as directed 2 Bottle 06/12/2018 Active Active Problems Problem Noted Date Diagnosed Date Mild intermittent asthma without complication Resolved Problems Problem Noted Date Diagnosed Date Resolved Date Special screening for malign ant neoplasms, colon 06/12/2018 06/27/2023 Social History Tobacco Use Types Packs/Day Years Used Date Smoking Tobacco: Never Assessed Sex and Gender Information Value Date Recorded Sex Assigned at Not on file Gender Identity Not on file Sexual Orientation Not on file Plan of Treatment Health Maintenance Due Date Last Done Comments Hepatitis C Virus Screening 1960 HIV Screening 07/02/1975 DTaP/Tdap/Td Vaccines (1 - Tdap) 1981 Pneumococcal Vaccines 50+ (1 of 2 - PCV) 1981 Pap Smear (Ages 21-65) 07/02/1983 Mammogram 2002 Colonoscopy 07/02/2007 Zoster (Shingles) Vaccine (1 of 2) 2012 RSV Vaccine 60 years and old er and Patients (1 - Risk 60-74 years 1-dose series) 2022 Influenza Vaccine 11/14/2023 COVID-19 Vaccine (2023-2 5 season) 2023 Hepatitis B Vaccines Aged Out No long er eligible based on patient's age to complete this topic Care Teams Turkey Roll Maker Relationship Specialty Start Date End Date Fauzia Moreno DO PCP - General Internal Medicine 06/12/18
--- OUTSIDE RECORDS SUMMARY | 2024-05-27 10:41 | XMS_ITS | Patient Health Record ---
Author Organization [employer] [facility] Address [address] [facility] [address] [place] [address] Care Team Providers Care Wool Classer Name Role Phone ANTOLIN SOMMERS Primary Care Provider DAVID Pham Unavailable [phone] Allergies Allergen (clinical drug ingredient) Drug/Non Drug Allergy documented on EMR Reaction Allergy Type Onset Date Status Shellfish (FN) Shellfish-derived Products anaphylaxis Drug Allergy Active Results Component Value Reference Range Notes 452159-Gov IGP No Culture 30 Plus Reviewed date:09/20/2023 11:12:54 AM Interpretation: Performing Lab:[facility] [place], [address], [address], [place], Phone - [phone], Director - [facility] Notes/Report: Clinical Information:[id number] LMP / Prev Treat...[id number] Dates / Results....2011 No. of containers..01 ThinPrep Vial DIAGNOSIS: NEGATIVE FOR IN TRAEPITHELIAL LESION OR MALIGNANCY. Specimen adequacy: Satisfactory for evaluation. Endocervical and/or squamous metaplastic cells (endocervical component) are present. Clinician provided ICD10: Z01.419 Performed by: Jeanmarie petersen, Welding Production Supervisor (ASCP) . . Note: The Pap smear is a screening test designed to aid in the detection of premalignant and malignant conditions of the uterine cervix. It is not a diagnostic procedure and should not be used as the sole means of detecting cervical cancer. Both false-positive and false-negative reports do occur. . Test Methodology: This liquid based ThinPrep(R) pap test was screened with the use of an image guided system. HPV Aptima Negative Negative This nucleic acid amplification test detects fourteen high-risk HPV types (16,18,31,33,35,39,45,51,52, 56,58,59,66,68) without differentiation. HPV Genotype Reflex Criteria not met, HPV Genotype not performed. PDF Report Reviewed date:09/20/2023 11:14:19 AM Interpretation: Performing Lab:[facility], [address], [address], [place], Phone - [phone], Director - [facility] Notes/Report: Clinical Information:[id number] LMP / Prev Treat...[id number]=[id number] Dates / Results....2011 No. of containers..01 ThinPrep Vial Test, Urine Reviewed date:11/29/2023 10:53:05 AM Interpretation: Performing Lab: Notes/Report: Test, Urine NEG SURGICAL PATHOLOGY Reviewed date:12/12/2023 11:42:33 AM Interpretation: Performing Lab:Testing performed or reported by [facility], a Service of [facility], [address] [place] [address] Zan Amaya MD, Horticultural Worker [facility]# [id number] Notes/Report: Patient Name: MARISOL CHAPARRO Lab Patient : 1960 (Age: 63) Collection Date: 11/29/2023 Accession Date: 11/29/2023 Sign Out Date: 12/10/2023 ADDENDUM (See Entries Beneath Diagnosis) Tissue Source: 1:EMB Final Diagnosis: Endometrium, biopsy: - Endocervical glandular mucosa with microglandular hyperplasia, and focal squamous metaplasia. - Scant endometrial glands with tubal (ciliated) epithelial cell change. Note: The scant quantity of tissue received is interpreted as not employee's representative of the endometrium. Clinical correlation and follow-up advised. Primary Pathologist:Britt Vora M.D.,Ph.D. electronically signed out by: Britt Vora M.D.,Ph.D. / [facility] Procedures/Addenda Addendum Status: Signed Out Date Ordered: 12/10/2023 Date Complete: 12/10/2023 By: Britt Vora M.D.,Ph.D. Date Reported: 12/10/2023 Addendum Diagnosis: Per CIS data the patient is 101 kg, Obesity is associated with several hormonal derangements which may contribute to hyperplasia and carcinogenesis in the endometrium. In view of the limited endometrial sample in the EMB, clinical follow-up with consideration of repeat endometrial sampling (D&C) advised to rule out any endometrial pathology. Britt Vora M.D.,Ph.D. Clinical History: AUB Gross Description: Labeled endometrial biopsy . Received in formalin is a 2.0 x 1.4 x 0.3 cm aggregate of red, villasenor tissue with translucent mucus. The specimen is entirely submitted. 1-multiple pieces, x 2. (EG)* As of June 22, 2023, the specimen processing and staining is performed at [facility], [address] [place] [address] (CLIA#[id number]). Its performance characteristics determined by [facility]. Gregoria Gonzalez M.D. Horticultural Worker of Surgical Pathology, Bob Cox M.D. Horticultural Worker Cytopathology Phone #: [phone], On-Call Pathologist: [phone] Reason For Referral No Information Medications Medication SIG (Take, Route, Fr equency, Duration) Notes Start Date End Date Status miSOPROStol 200 MCG as directed Orally 8 -12 hrs prior to appointment for 1 days 09/13/2023 Active Social History Tobacco Use: Social History Observation Description Date Details (start date - stop date) Never Smoker NA - NA AUDIT-C (Standard) Question Answer Notes Did you have a drink contain ing alcohol in the past year? Yes How often did you have six o r more drinks on one occasion in the past year? Never (0 point) How many drinks did you have on a typical day when you were drinking in the past year? 1 or 2 drinks (0 point) How often did you have a dri nk containing alcohol in the past year? Monthly or less (1 point) Points 1 Interpretation Negative Tobacco Control (Standard) Question Answer Notes Tobacco use: Nonsmoker Problems Problem Type SNOMED Code ICD Code Onset Dates Problem Status W/U Status Risk Notes Problem Abnormal uterine bleeding (086862804003 00) Abnormal uterine and vaginal bleeding, unspecified (N93.9) Active confirmed Problem COVID-19 (197138080) COVID-19 (U07.1) Active confirmed Vital Signs Temperature 96.8 degrees Fahrenheit 09/13/2023 Blood pressure diastolic 82 mm Hg 09/13/2023 Height 58 in 09/13/2023 Blood pressure systolic 132 mm Hg 09/13/2023 Weight 259 lbs 09/13/2023 BMI 54.13 kg/m2 09/13/2023 Encounters Encounter Location Date Provider Diagnosis [address] [place] [address] [address] 09/13/2023 DAVID FOLEY Encounter for gynecological examination (general) (routine) without abnormal findings Z01.419 ; Encounter for screening mammogram for malignant neoplasm of breast Z12.31 ; Hypertrophy of uterus N85.2 and Abnormal uterine and vaginal bleeding, unspecified N93.[address] [address] 11/29/2023 DAVID FOLEY Abnormal uterine and vaginal bleeding, unspecified N93.[address] [address] 12/11/2023 DAVID FOLEY [facility] [address] [address] 10/29/2023 DAVID FOLEY Abnormal uterine and vaginal bleeding, unspecified N93.9 Assessments Encounter Date Diagnosis (ICD Code) Assessment Notes Treatment Notes Treatment Clinical Notes Section Notes 09/13/2023 Encounter for screening mammogram for malignant neoplasm of breast (ICD-10 - Z12.31) 10/29/2023 Abnormal uterine and vaginal bleeding, unspecified (ICD-10 - N93.9) 11/29/2023 Abnormal uterine and vaginal bleeding, unspecified (ICD-10 - N93.9) 09/13/2023 Encounter for gynecological examination (general) (routine) without abnormal findings (ICD-10 - Z01.419) During the visit, the following areas of concern were addressed: Discussed cervical cancer screening with either cytology alone every 3 years or high risk HPV co-testing every 5 years as per ASCCP guidelines. Advised continued annual pelvic exams. Patient encouraged to increase her level of exercise. SBE technique encouraged/tau ght. Patient reminded when annual mammogram is due. Patient encouraged to keep colon screening up to date. 09/13/2023 Hypertrophy of uterus (ICD-10 - N85.2) 09/13/2023 Abnormal uterine and vaginal bleeding, unspecified (ICD-10 - N93.9) Patient still having monthly bleeding after age 62. Will rule out uterine pathology as a cause. Plan Of Treatment Pending Test Test Name Order Date Sonohysterogram 09/13/2023 MM Digital Screening Mammogram 3D 2023 Next Appt Details Provider Name:DAVID Brianna WATSONRYAN Neil, 09/15/2024 09:00:00 AM, [address], [address], [place], [address], Insurance Providers Payer Name Payer Address Payer Phone Subscriber Number Group Number Insured Name Patient Relationship to Insured Coverage Start Date Coverage End Date [facility] [address] [address] [place] [address] [id number] MARISOL CHAPARRO Self - patient is the insured Medical (General) History Medical History History ICD Code COVID-19 U07.1 Surgical History Surgery Date(Month/Year) Section X2 BTL 1986 Tubal reversal 1996 Hospitalization History Reason Date(Month/Year) See Surgical Hx
--- OUTSIDE RECORDS SUMMARY | 2024-05-27 10:41 | XMS_ITS ---
Author Organization [facility] Address [address] [facility] [address] [place] [address] Care Team Providers Care Band Shover Name Role Phone ANTOLIN SOMMERS Primary Care Provider DAVID Pham Unavailable [phone] REASON FOR VISIT RESULTS & ? SURGERY REFERRAL Encounters Encounter Location Date Provider Diagnosis [facility] [address] [place] [address] [address] [place] [address] 12/11/2023 DAVID FOLEY Plan Of Treatment Next Appt Details Provider Name:DAVID Trejo, 09/15/2024 09:00:00 AM, [address] [place] [address], [address], [place], [address], Progress Notes * MARISOL CHAPARRODOB: 3 (63 yo F)Acc No.[id number]:12/11/2023 Patient:?MARISOL CHAPARRO :1960???Age:63 Y???Sex:Female Address:[address] [place] [address], [facility], [place], [address] * * Date:?
--- OUTSIDE RECORDS SUMMARY | 2024-05-27 10:41 | XMS_ITS ---
Author Organization [facility] Address [address] [facility] [address] [place] [address] Care Team Providers Care Home Aide Name Role Phone ANTOLIN SOMMERS Primary Care Provider DAVID Pham Unavailable [phone] Allergies Allergen (clinical drug ingredient) Drug/Non Drug Allergy documented on EMR Reaction Allergy Type Onset Date Status Shellfish (FN) Shellfish-derived Products anaphylaxis Drug Allergy Active Results Component Value Reference Range Notes Test, Urine Reviewed date:11/29/2023 10:53:05 AM Interpretation: Performing Lab: Notes/Report: Test, Urine NEG SURGICAL PATHOLOGY Reviewed date:12/12/2023 11:42:33 AM Interpretation: Performing Lab:Testing performed or reported by [facility], [place] [address] Zan Amaya MD, Human Resources Mgr [facility]# [id number] Notes/Report: Patient Name: MARISOL CHAPARRO Lab Patient [...] of tissue received is interpreted as not customer service representative teller of the endometrium. Clinical correlation and follow-up advised. Primary Pathologist:Britt Vora M.D.,Ph.D. electronically signed out by: Britt Vora M.D.,Ph.D. / [facility] Procedures/Addenda Addendum Status: Signed Out [...] specimen processing and staining is performed at [facility], [address] [place] [address] (CLIA#[id number]). Its performance characteristics determined by [facility]. Gregoria Gonzalez M.D. Human Resources Mgr of Surgical Pathology, Bob Cox M.D. Human Resources Mgr Cytopathology Phone #: [phone], On-Call Pathologist: [id number] REASON FOR VISIT HSONO/EB/AUB Medications Medication SIG (Take, Route, Fr equency, Duration) Notes Start Date End Date Status miSOPROStol 200 MCG as directed Orally 8 -12 hrs prior to appointment for 1 days 09/13/2023 Active Encounters Encounter Location Date Provider Diagnosis [facility] [place] [address] [place] [address] 11/29/2023 DAVID FOLEY Abnormal uterine and vaginal bleeding, unspecified N93.9 Assessments Encounter Date Diagnosis (ICD Code) Assessment Notes Treatment Notes Treatment Clinical Notes Section Notes 11/29/2023 Abnormal uterine and vaginal bleeding, unspecified (ICD-10 - N93.9) Plan Of Treatment Next Appt Details Follow Up: prn, Reason: Provider Name:DAVID Trejo, 09/15/2024 09:00:00 AM, [address], [address], [place], [address], Procedure Notes * Category Sub-Category Detail Notes Endometrial biopsy Test: Negative Indication: Continued menses at age 63, BMI 54 Consent: General procedure, i ndications, risks, benefits, [...] difficulty. The uterine cavity was sounded to 6 cm. An adequate specimen was obtained and [...] biopsy are available in approximately one week. She will be called with results. Sonohysterogram procedure Cervix prepped w ith aseptic solution, Tenaculum required/used, Catheter advanced easily but only to the internal os, which makes me concerned that the endometrial cavity was inadequately sampled by the biopsy, fluid was instilled, Lining smooth and measures 12.1mm, Polyp(s) noted - [id number] Progress Notes * MARISOL CHAPARRODOB: 3 (63 yo F)Acc No.[id number]:11/29/2023 Patient:?MARISOL CHAPARRO Provider:?DAVID FOLEY MD :1960???Age:63 Y???Sex:Female D ate:11/29/2023 Address:[address] [place] [address], [place] Pcp:ANTOLIN SOMMERS Subjective: * Chief Complaints: * ???HSONO/EB/AUB * HPI: ???TOP EXECUTIVE (Procedures/Surgeries):? Patient presents today for sonohysterogram and endometrial biopsy. She presented on 09/13/23 for her routine pm technician exam as a new patient and reported that she is still having monthly menses at age 63. Her BMI was 54, which increases her risk for endometrial hyperplasia and carcinoma. She has had to reschedule this sonohysterogram twice due to bleeding. * Medical History:? * Medications:?TakingmiSOPROSt ol 200 MCG Tablet as directed Orally 8-12 hrs prior to appointment Medication List reviewed and reconciled with the patientTaking miSOPROStol 200 MCG Tablet as directed Orally 8-12 hrs prior to appointment Medication List reviewed and reconciled with the patient * Allergies:?Shellfish-derived Products: anaphylaxis - Allergyno[Allergies Verified] Objective: * Vitals:? Assessment: * Assessment: 1.?Abnormal uterine and vagi nal bleeding, unspecified - N93.9 (Primary)??? Plan: * Treatment: ? Value Reference Range ?SURGICAL PATHOLOGY Patient Name: MARISOL CHAPARRO - * ENDOMETRIAL BXThis lab was r cherellewed by DAVID FOLEY on 12/12/2023 at 11:42 AM EDT ?LAB: Test, Urine (Collection Date & Time - 11/29/2023)* ? Value Reference Range ? Test, Urine NEG * MILLICENT Barriga 11/29/2023 10:17:54 AM EDT > * Procedures:?Sonohysterogram:?procedure?Cervix prepped with aseptic solution, Tenaculum required/used, Catheter advanced easily but only to the internal os, which makes me concerned that the endometrial cavity was inadequately sampled by the biopsy, fluid was instilled, Lining smooth and measures 12.1mm, Polyp(s) noted - [id number].?Endometrial biopsy :? Test:?Negative.?Indication:?Continued menses at age 63, BMI 54.?Consent:?General procedure, indications, risks, benefits, alternative treatments, and [...] difficulty. The uterine cavity was sounded to 6 cm. An adequate specimen was obtained and [...] biopsy are available in approximately one week. She will be called with results..? * Procedure Codes:?02668 URINE [id number] CATHETER FOR [id number] BIOPSY OF UTERUS LINING * Follow Up:?prn * Images: Billing Information: * Visit Code:? * Procedure Codes:? 86000 URINE TEST. 66314 CATHETER FOR HYSTEROGRAPHY. 07694 BIOPSY OF UTERUS LINING. * Sign off status: Completed true * Provider:?DAVID FOLEY MD Date:?2023 Generated for Dorinda nation/Rene/Joeitting on:?05/27/2024 10:41 AM EST
== END 2024-05-27 10:17 | disposition home or self-care (01) ==
PROVIDERS: PCP Internal Medicine; Visit Provider Orthopaedic Surgery
DX: M17.0 Bilateral primary osteoarthritis of knee (principal)
CPT/HCPCS: 20610; 99213

== ENCOUNTER → 2024-05-27 09:28 | Outpatient (BNVA) | payer OTHER, SELFPAY | PROVIDERS: PCP Internal Medicine; Visit Provider Orthopaedic Surgery | DX: M17.0 Bilateral primary osteoarthritis of knee (principal) | CPT/HCPCS: 20610; 99212; J2003; J7323 ==

== ENCOUNTER 2024-06-08 13:46 | Outpatient (AMB) | payer OTHER, SELFPAY ==
--- NOTE | 2024-06-08 13:47 | MHC.OFFVIS ---
Vital Signs 06/08/24 13:50 Height 4 ft 11 in Weight 259 lb BMI 52.3 Intake Visit Reasons: Inj-Bilateral Knee Euflexxa #2 Intake Note: Mari is a 63 year old female who presents today for her second dose of Euflexxa gel injection on both of her knees. She states that she has gotten mild relief from the 1st set of injections. She continues with her home exercise program. Allergies shellfish derived Allergy (Unknown, Verified 06/08/24 13:51) Unknown seafood Allergy (Verified 06/08/24 13:51) Unknown Medication List - Last Reconciled 06/08/24 by Luis Rizo MD albuterol sulfate 90 mcg/actuation (ProAir HFA) 2 puffs inhalation Q4-6H PRN cholecalciferol (vitamin D3) 50 mcg PO DAILY mecobalamin (vitamin B12) 1,000 mcg sublingual DAILY PFSH Medical History Benign neoplasm of skull Asthma Surgical History History of breast biopsy History of tonsillectomy History of section Family History Father HTN (hypertension) Diabetes mellitus Mother HTN (hypertension) Kidney failure CVD (cardiovascular disease) Diabetes mellitus Mental health disorder Daughter No problems noted. Daughter No problems noted. 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 Cognitive needs: No Hearing needs: No Vision needs: Yes Physical Exam Vital Signs: BMI result Body Mass Index 52.3 Extrem Other: Bilateral knee examination shows minimal effusions, palpable crepitus with range of motion, pain with range of motion, no instability Office Procedures AMB Joint Injection/Aspiration Joint Injection/Aspiration Primary Site: left knee Prep: site was prepped using aseptic technique Injected: 20 mg of (Euflexxa viscosupplementation) and 1% plain lidocaine Procedure: The patient tolerated the procedure well Coding 59533 - Large joint Procedure code (CPT) selection complete AMB Joint Injection/Aspiration Joint Injection/Aspiration Primary Site: right knee Prep: site was prepped using aseptic technique Injected: 20 mg of (Euflexxa viscosupplementation) and 1% plain lidocaine Procedure: The patient tolerated the procedure well Coding 38125 - Large joint Procedure code (CPT) selection complete Results Reviewed Results Reviewed: X-rays of the patient's bilateral knees taken previously show joint space narrowing, subchondral sclerosis, no acute bony abnormalities Assessment & Plan Assessment & Plan (1) Osteoarthritis of left knee: Code(s): M17.12 - Unilateral primary osteoarthritis, left knee Category: Medical (2) Osteoarthritis of right knee: Code(s): M17.11 - Unilateral primary osteoarthritis, right knee Category: Medical Plan Ms. Horton presents with bilateral knee pains due to osteoarthritis. The risks and benefits of a 2nd set of Euflexxa viscosupplementation injections were discussed at length with the patient. The patient wished to proceed. She tolerated the injections well. She will continue with her home exercise program. She will follow up next week as scheduled. Feel free to call me at any time should questions regarding her orthopedic management arise. Orders: Orders AMB Joint Injection/Aspiration Today M17.11 - Unilateral primary osteoarthritis, right knee AMB Joint Injection/Aspiration Today M17.12 - Unilateral primary osteoarthritis, left knee Coding Level of Care Code Procedure Only Diagnoses Osteoarthritis of left knee M17.12 Osteoarthritis of right knee M17.11 CPT Codes Coding - 20246 Large joint: 38650 - Large joint ([id number]) Coding - 49323 Large joint: 89888 - Large joint ([id number])
[2024-06-08 13:50] VITALS: BMI 52.3
--- OUTSIDE RECORDS SUMMARY | 2024-06-08 15:45 | XMS_ITS | Patient Health Record ---
Author Organization [employer] Address [address] [place] [address] Care Team Providers Care Body Art Technician Name Role Phone ANTOLIN SOMMERS Primary Care Provider DAVID Pham Unavailable [phone] Allergies Allergen (clinical drug ingredient) Drug/Non Drug Allergy documented on EMR Reaction Allergy Type Onset Date Status Shellfish (FN) Shellfish-derived Products anaphylaxis Drug Allergy Active Results Component Value Reference Range Notes SURGICAL PATHOLOGY Reviewed date:12/12/2023 11:42:33 AM Interpretation: Performing Lab:Testing performed or reported by [facility], a Service of [facility], [address] [place] [address] Zan Amaya MD, Metal Cleaner [facility]# [id number] Notes/Report: Patient Name: MARISOL CHAPARRO Lab Patient [...] of tissue received is interpreted as not medical billing representative of the endometrium. Clinical correlation and follow-up advised. Primary Pathologist:Britt Vora M.D.,Ph.D. electronically signed out by: Britt Vora M.D.,Ph.D. / [facility] [place] Procedures/Addenda Addendum Status: Signed Out [...] specimen processing and staining is performed at [facility], [address] [place] [address] (CLIA#[id number]). Its performance characteristics determined by [facility]. Gregoria Gonzalez M.D. Metal Cleaner of Surgical Pathology, Bob Cox M.D. Metal Cleaner Cytopathology Phone #: [phone], On-Call Pathologist: [id number] Test, Urine Reviewed date:11/29/2023 10:53:05 AM Interpretation: Performing Lab: Notes/Report: Test, Urine NEG PDF Report Reviewed date:09/20/2023 11:14:19 AM Interpretation: Performing Lab:[facility], [address], Phone - [phone], Director - [facility] Notes/Report: Clinical Information:[id number] LMP / Prev Treat...[id number]=[id number] Dates / Results....2011 No. of containers..01 ThinPrep Vial 285689-Voi IGP No Culture 30 Plus Reviewed date:09/20/2023 11:12:54 AM Interpretation: Performing Lab:[facility], [address] [place] [address], [address], Phone - [phone], Director - [facility] Notes/Report: Clinical Information:[id number] LMP / Prev Treat...[id number]=[id number] Dates / Results....2011 No. of containers..01 ThinPrep Vial DIAGNOSIS: NEGATIVE FOR IN TRAEPITHELIAL LESION OR MALIGNANCY. Specimen adequacy: Satisfactory for evaluation. Endocervical and/or squamous metaplastic cells (endocervical component) are present. Clinician provided ICD10: Z01.419 Performed by: Jeanmarie petersen, Supervisor Microbiology Technologists ([facility]) . . Note: The Pap smear is [...] Criteria not met, HPV Genotype not performed. Reason For Referral No Information Medications Medication [...] Status Risk Notes Problem Abnormal uterine bleeding ([id number] 00) Abnormal uterine and vaginal bleeding, unspecified (N93.9) Active confirmed Problem COVID-19 ([id number]) COVID-19 (U07.1) Active confirmed Vital Signs Temperature 96.8 degrees Fahrenheit 09/13/2023 Blood pressure diastolic 82 mm Hg 09/13/2023 Height 58 in 09/13/2023 Blood pressure systolic 132 mm Hg 09/13/2023 Weight 259 lbs 09/13/2023 BMI 54.13 kg/m2 09/13/2023 Encounters Encounter Location Date Provider Diagnosis [address] Real Time Tomography [address] [address] 09/13/2023 DAVID FOLEY Encounter for gynecological examination (general) (routine) without abnormal findings Z01.419 ; Encounter for screening mammogram for malignant neoplasm of breast Z12.31 ; Hypertrophy of uterus N85.2 and Abnormal uterine and vaginal bleeding, unspecified N93.[address] [address] 11/29/2023 DAVID FOLEY Abnormal uterine and vaginal bleeding, unspecified N93.[address] [address] 12/11/2023 DAVID FOLEY Total [address] [address] 10/29/2023 DAVID FOLEY Abnormal uterine and vaginal [...] Brianna WATSONRYAN Neil, 09/15/2024 09:00:00 AM, [address], [address], [place], [address], Insurance Providers Payer Name Payer Address Payer Phone Subscriber Number Group Number Insured Name Patient Relationship to Insured Coverage Start Date Coverage End Date [facility] [address] [address] [place] [address] [id number] MARISOL CHAPARRO Self - patient is the insured Medical (General) History Medical History History ICD Code COVID-19 U07.1 Surgical History Surgery Date(Month/Year) Section X2 BTL 1986 Tubal reversal 1996 Hospitalization History Reason Date(Month/Year) See Surgical Hx
--- OUTSIDE RECORDS SUMMARY | 2024-06-08 15:45 | XMS_ITS | Clinical Summary ---
Author Organization [facility] ity Address [address] [place] [address] Care Team Providers Care Mutual Fund Manager Name Role Phone Fauzia Moreno Primary Care Provider [phone] Surgical History Surgery Date Site/Laterality Comments SECTION [...] on 12/02/2017 1:47 PM. Workstation Name - [id number] Procedure Note River Turpin MD - 04/07/2022 [...] MD on 12/02/2017 1:47 PM.Workstation Name - [id number] Froylan Jones DO IMG BI PROCEDURES Final Result from Last 3 Months or Most Recently Relevant to Health Maintenance Care Teams Mutual Fund Manager Relationship Specialty Start Date End Date Fauzia Moreno DO [address] [place] [address] PCP - General Pediatrics 11/14/16
--- OUTSIDE RECORDS SUMMARY | 2024-06-08 15:45 | XMS_ITS ---
Author Organization [employer] Address [facility] [address] [place] [address] Care Team Providers Care Photogrammetric Tech Name Role Phone ANTOLIN SOMMERS Primary Care Provider DAVID Pham Unavailable [phone] REASON FOR VISIT RESULTS & ? SURGERY REFERRAL Encounters Encounter Location Date Provider Diagnosis [facility] [address] [place] [address] [address] [place] [address] 12/11/2023 DAVID FOLEY Plan Of Treatment Next Appt Details Provider Name:DAVID Trejo, 09/15/2024 09:00:00 AM, [address] [place] [address], [address], [place], [address], Progress Notes * MARISOL CHAPARRODOB: 3 (63 yo F)Acc No.[id number]:12/11/2023 Patient:?MARISOL CHAPARRO :1960???Age:63 Y???Sex:Female Address:[address] [place] [address], [facility], [place], [address] * * Date:?
--- OUTSIDE RECORDS SUMMARY | 2024-06-08 15:45 | XMS_ITS | Clinical Summary ---
Author Organization [facility] Address [address] [place] [address] Care Team Providers Care Survey Interviewer Name Role Phone Fauzia Moreno Primary Care Provider [phone] Allergies Active Allergy Reactions Criticality Noted Date [...] age to complete this topic Care Teams Survey Interviewer Relationship Specialty Start Date End Date Fauzia Moreno DO PCP - General Internal Medicine 06/12/18
--- OUTSIDE RECORDS SUMMARY | 2024-06-08 15:46 | XMS_ITS ---
Author Organization [employer] [facility] Address [address] [place] [address] Care Team Providers Care Health Care Aide Name Role Phone ANTOLIN SOMMERS Primary Care Provider DAVID Pham Unavailable [phone] Allergies Allergen (clinical drug ingredient) Drug/Non Drug Allergy documented on EMR Reaction Allergy Type Onset Date Status Shellfish (FN) Shellfish-derived Products anaphylaxis Drug Allergy Active Results Component Value Reference Range Notes Test, Urine Reviewed date:11/29/2023 10:53:05 AM Interpretation: Performing Lab: Notes/Report: Test, Urine NEG SURGICAL PATHOLOGY Reviewed date:12/12/2023 11:42:33 AM Interpretation: Performing Lab:Testing performed or reported by [facility], [place] [address] Zan Amaya MD, Claims Consultant [facility]# [id number] Notes/Report: Patient Name: MARISOL CHAPARRO Lab Patient [...] of tissue received is interpreted as not outbound call center representative of the endometrium. Clinical correlation and follow-up advised. Primary Pathologist:Britt Vora M.D.,Ph.D. electronically signed out by: Britt Vora M.D.,Ph.D. / [facility] [place] Procedures/Addenda Addendum Status: Signed Out Date Ordered: [...] specimen processing and staining is performed at [facility], [address] [place] [address] (CLIA#[id number]). Its performance characteristics determined by [facility]. Gregoria Gonzalez M.D. Claims Consultant of Surgical Pathology, Bob Cox M.D. Claims Consultant Cytopathology Phone #: [phone], On-Call Pathologist: [id number] REASON FOR VISIT HSONO/EB/AUB Medications Medication SIG (Take, Route, Fr equency, Duration) Notes Start Date End Date Status miSOPROStol 200 MCG as directed Orally 8 -12 hrs prior to appointment for 1 days 09/13/2023 Active Encounters Encounter Location Date Provider Diagnosis [facility] [place] [address] [place] [address] 11/29/2023 DAVID FOLEY Abnormal uterine and vaginal bleeding, unspecified N93.9 Assessments Encounter Date Diagnosis (ICD Code) Assessment Notes Treatment Notes Treatment Clinical Notes Section Notes 11/29/2023 Abnormal uterine and vaginal bleeding, unspecified (ICD-10 - N93.9) Plan Of Treatment Next Appt Details Follow Up: prn, Reason: Provider Name:DAVID Trejo, 09/15/2024 09:00:00 AM, [address], [place], [address], Procedure Notes * Category Sub-Category Detail Notes [...] smooth and measures 12.1mm, Polyp(s) noted - [id number] Progress Notes * MARISOL CHAPARRODOB: 3 (63 yo F)Acc No.[id number]:11/29/2023 Patient:?MARISOL CHAPARRO Provider:?DAVID FOLEY MD :1960???Age:63 Y???Sex:Female D ate:11/29/2023 Address:[address] [place] [address], [place] Pcp:ANTOLIN SOMMERS Subjective: * Chief Complaints: * ???HSONO/EB/AUB * HPI: ???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 Patient presents today for sonohysterogram and endometrial biopsy. She presented on 09/13/23 for her routine investigator narcotics exam as a new patient and reported [...] Value Reference Range ?SURGICAL PATHOLOGY Patient Name: MARSIOL CHAPARRO - * ENDOMETRIAL BXThis lab was [...] smooth and measures 12.1mm, Polyp(s) noted - [id number].?Endometrial biopsy :? Test:?Negative.?Indication:?Continued menses at age 63, [...] will be called with results..? * Procedure Codes:?29960 URINE [id number] CATHETER FOR [id number] BIOPSY OF UTERUS LINING * Follow Up:?prn * Images: Billing Information: * Visit Code:? * Procedure Codes:? 46561 URINE TEST. 02526 CATHETER FOR HYSTEROGRAPHY. 30858 BIOPSY OF UTERUS LINING. * Sign off status: Completed true * Provider:?DAVID FOLEY MD Date:?2023 Generated for Dorinda nation/Rene/Joeitting on:?06/08/2024 03:45 PM EST
--- OUTSIDE RECORDS SUMMARY | 2024-06-08 15:46 | XMS_ITS | Clinical Summary ---
Author Organization [facility] Address [address] [place] [address] Care Team Providers Care Senior Systems Software Engineer Name Role Phone Fauzia Moreno DO Primary Care Provider [phone] Family History Medical History Relation Name Comments [...] age to complete this topic Care Teams Senior Systems Software Engineer Relationship Specialty Start Date End Date Fauzia Moreno DO PCP - General Pediatrics 11/14/16
--- OUTSIDE RECORDS SUMMARY | 2024-06-08 15:46 | XMS_ITS ---
Author Organization [employer] [facility] Address [address] [place] [address] [address] [place] [address] Care Team Providers Care Mirror Department Supervisor Name Role Phone MATTHIEUANTOLIN Primary Care Provider DAVID Pham Unavailable [phone] REASON FOR VISIT HSONO/EB/AUB Encounters Encounter Location Date Provider Diagnosis [facility] [address] [address] 11/01/2023 DAVID FOLEY Abnormal uterine and vaginal bleeding, unspecified N93.9 Assessments Encounter Date Diagnosis (ICD Code) Assessment Notes Treatment Notes Treatment Clinical Notes Section Notes 11/01/2023 Abnormal uterine and vaginal bleeding, unspecified (ICD-10 - N93.9) Plan Of Treatment Next Appt Details Follow Up: prn, Reason: Provider Name:DAVID Trjeo, 09/15/2024 09:00:00 AM, [address] [place] [address], [address], [place], [address], Procedure Notes * Category Sub-Category Detail Notes [...] * MARISOL CHAPARRODOB: 3 (63 yo F)Acc No.[id number]:11/01/2023 Patient:?MARISOL CHAPARRO Provider:?DAVID FOLEY MD :1960???Age:63 Y???Sex:Female D ate:11/01/2023 Address:[address] [place] [address] Pcp:ANTOLIN SOMMERS Subjective: * Chief Complaints: * ???1. HSONO/EB/AUB. 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 She presented on 09/13/23 for her routine cloth layer exam as a new patient and reported [...] available in approximately one week..? * Procedure Codes:?52212 URINE TEST, 12644 CATHETER FOR HYSTEROGRAPHY, 96568 BIOPSY OF UTERUS LINING * Follow Up:?prn * Images: Billing Information: * Visit Code:? * Procedure Codes:? 12975 URINE TEST. 39692 CATHETER FOR HYSTEROGRAPHY. 87971 BIOPSY OF UTERUS LINING. * Electronic signature of DAVID FOLEY MD on 06/08/2024 at 03:45 PM EST Sign off status: Pending * Provider:?DAVID FOLEY MD Date:?2023 Generated for Dorinda nation/Rene/Joeitting on:?06/08/2024 03:45 PM EST
== END 2024-06-08 14:16 | disposition home or self-care (01) ==
PROVIDERS: PCP Internal Medicine; Visit Provider Orthopaedic Surgery
DX: M17.0 Bilateral primary osteoarthritis of knee (principal)
CPT/HCPCS: 20610

== ENCOUNTER → 2024-06-08 13:46 | Outpatient (BNVA) | payer OTHER, SELFPAY | PROVIDERS: PCP Internal Medicine; Visit Provider Orthopaedic Surgery | DX: M17.0 Bilateral primary osteoarthritis of knee (principal) | CPT/HCPCS: 20610; J2003; J7323 ==

== ENCOUNTER 2024-06-18 09:06 | Outpatient (AMB) | payer OTHER, SELFPAY ==
[2024-06-18 09:13] VITALS: BMI 52.3
--- NOTE | 2024-06-18 09:13 | MHC.OFFVIS ---
Vital Signs 06/18/24 09:13 Height 4 ft 11 in Weight 259 lb BMI 52.3 Intake Visit Reasons: Inj-Bilateral Knee Euflexxa #3 Intake Note: Mair is a 63 year old female who presents today for her third dose of the Euflexxa gel injection on both of her knees. She reports mild intermittent discomfort in both of her knees. She denies any fevers or chills. She continues with her home exercise program. Allergies shellfish derived Allergy (Unknown, Verified 06/18/24 09:13) Unknown seafood Allergy (Verified 06/18/24 09:13) Unknown Medication List - Last Reconciled 06/18/24 by Luis Rizo MD albuterol sulfate 90 mcg/actuation (ProAir HFA) 2 puffs inhalation Q4-6H PRN cholecalciferol (vitamin D3) 50 mcg PO DAILY mecobalamin (vitamin B12) 1,000 mcg sublingual DAILY PFSH Medical History Benign neoplasm of skull Asthma Surgical History History of breast biopsy History of tonsillectomy History of section Family History Father HTN (hypertension) Diabetes mellitus Mother HTN (hypertension) Kidney failure CVD (cardiovascular disease) Diabetes mellitus Mental health disorder Daughter No problems noted. Daughter No problems noted. 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 Cognitive needs: No Hearing needs: No Vision needs: Yes Physical Exam Vital Signs: BMI result Body Mass Index 52.3 Extrem Other: Bilateral knee examination shows minimal effusions, palpable crepitus with range of motion, pain with range of motion, no instability Office Procedures AMB Joint Injection/Aspiration Joint Injection/Aspiration Primary Site: left knee Prep: site was prepped using aseptic technique Injected: 20 mg of (Euflexxa viscosupplementation) and 1% plain lidocaine Procedure: The patient tolerated the procedure well Coding 74878 - Large joint Procedure code (CPT) selection complete AMB Joint Injection/Aspiration Joint Injection/Aspiration Primary Site: right knee Prep: site was prepped using aseptic technique Injected: 20 mg of (Euflexxa viscosupplementation) and 1% plain lidocaine Procedure: The patient tolerated the procedure well Coding - Large joint Procedure code (CPT) selection complete Assessment & Plan Assessment & Plan (1) Osteoarthritis of left knee: Code(s): M17.12 - Unilateral primary osteoarthritis, left knee Category: Medical (2) Osteoarthritis of right knee: Code(s): M17.11 - Unilateral primary osteoarthritis, right knee Category: Medical Plan Ms. Horton presents with bilateral knee pains due to osteoarthritis. The risks and benefits of her 3rd set of bilateral knee Euflexxa injections were discussed at length with the patient. The patient wished to proceed. She tolerated the injections well. She will continue with her home exercise program. She will contact me prior to her follow-up appointment in 3 months should any questions or concerns arise. Feel free to call me at any time should questions regarding her orthopedic management arise. Orders: Orders AMB Joint Injection/Aspiration Today M17.12 - Unilateral primary osteoarthritis, left knee AMB Joint Injection/Aspiration Today M17.11 - Unilateral primary osteoarthritis, right knee Coding Level of Care Code Procedure Only Diagnoses Osteoarthritis of left knee M17.12 Osteoarthritis of right knee M17.11 CPT Codes Coding - Large joint: 58724 - Large joint ([id number]) Coding - 93563 Large joint: 83589 - Large joint ([id number])
--- OUTSIDE RECORDS SUMMARY | 2024-06-18 10:04 | XMS_ITS | Clinical Summary ---
Author Organization [facility] it Address [address] [place] [address] Care Team Providers Care Director Marketing Analytics Name Role Phone Fauzia Moreno Primary Care Provider [phone] Surgical History Surgery Date Site/Laterality Comments SECTION [...] on 12/02/2017 1:47 PM. Workstation Name - [id number] Procedure Note River Turpin MD - 04/07/2022 [...] MD on 12/02/2017 1:47 PM.Workstation Name - [id number] Froylan Jones DO IMG BI PROCEDURES Final Result from Last 3 Months or Most Recently Relevant to Health Maintenance Care Teams Director Marketing Analytics Relationship Specialty Start Date End Date Fauzia Moreno DO [address] [place] [address] PCP - General Pediatrics 11/14/16
--- OUTSIDE RECORDS SUMMARY | 2024-06-18 10:04 | XMS_ITS | Patient Health Record ---
Author Organization [employer] [facility] Address [address] [facility] [place] [address] Care Team Providers Care Microelectronics Assembler Name Role Phone ANTOLIN SOMMERS Primary Care Provider DAVID Pham Unavailable [phone] Allergies Allergen (clinical drug ingredient) Drug/Non Drug Allergy documented on EMR Reaction Allergy Type Onset Date Status Shellfish (FN) Shellfish-derived Products anaphylaxis Drug Allergy Active Results Component Value Reference Range Notes Test, Urine Reviewed date:11/29/2023 10:53:05 AM Interpretation: Performing Lab: Notes/Report: Test, Urine NEG SURGICAL PATHOLOGY Reviewed date:12/12/2023 11:42:33 AM Interpretation: Performing Lab:Testing performed or reported by [facility], a Service of [facility], [address] [place] [address] Zan Amaya MD, Industrial Truck Operator [facility]# [id number] Notes/Report: Patient Name: MARISOL CHAPARRO Lab Patient [...] of tissue received is interpreted as not in home sales representative of the endometrium. Clinical correlation and follow-up advised. Primary Pathologist:Britt Vora M.D.,Ph.D. electronically signed out by: Britt Vora M.D.,Ph.D. / [facility] [place] Procedures/Addenda Addendum Status: Signed Out Date Ordered: [...] specimen processing and staining is performed at [facility], [address] [place] [address] (CLIA#[id number]). Its performance characteristics determined by [facility]. Gregoria Gonzalez M.D. Industrial Truck Operator of Surgical Pathology, Bob Cox M.D. Industrial Truck Operator Cytopathology Phone #: [phone], On-Call Pathologist: [phone] IGP No Culture 30 Plus Reviewed date:09/20/2023 11:12:54 AM Interpretation: Performing Lab:[facility], [address] [place] [address], [address], Phone - [phone], Director - [facility] Notes/Report: Clinical Information:[id number] LMP / Prev Treat...[id number] Dates / Results....2012 No. of containers..01 ThinPrep Vial DIAGNOSIS: NEGATIVE FOR IN TRAEPITHELIAL LESION OR MALIGNANCY. Specimen adequacy: Satisfactory for evaluation. Endocervical and/or squamous metaplastic cells (endocervical component) are present. Clinician provided ICD10: Z01.419 Performed by: Jeanmarie petersen, Psychologist Educational (ASCP) . . Note: The Pap smear [...] Report Reviewed date:09/20/2023 11:14:19 AM Interpretation: Performing Lab:[facility] [place], [address], [address], [place], Phone - [phone], Director - [facility] Notes/Report: Clinical Information:[id number] LMP / Prev Treat...[id number] Dates / Results....2011 No. of containers..01 ThinPrep Vial Reason For Referral No Information Medications Medication [...] Status Risk Notes Problem Abnormal uterine bleeding (143740151253 00) Abnormal uterine and vaginal bleeding, unspecified (N93.9) Active confirmed Problem COVID-19 (035405795) COVID-19 (U07.1) Active confirmed Vital Signs Temperature 96.8 degrees Fahrenheit 09/13/2023 Blood pressure diastolic 82 mm Hg 09/13/2023 Height 58 in 09/13/2023 Blood pressure systolic 132 mm Hg 09/13/2023 Weight 259 lbs 09/13/2023 BMI 54.13 kg/m2 09/13/2023 Encounters Encounter Location Date Provider Diagnosis [address] [place] [address] [address] 09/13/2023 DAVID FOLEY Encounter for gynecological examination (general) (routine) without abnormal findings Z01.419 ; Encounter for screening mammogram for malignant neoplasm of breast Z12.31 ; Hypertrophy of uterus N85.2 and Abnormal uterine and vaginal bleeding, unspecified N93.[address] [address] 11/29/2023 DAVID FOLEY Abnormal uterine and vaginal bleeding, unspecified N93.[address] [address] 12/11/2023 DAVID FOLEY Total [address] [address] 10/29/2023 DAVID FOLEY Abnormal uterine and vaginal [...] 09:00:00 AM, [address], [address], [place], [address], Insurance Providers Payer Name Payer Address Payer Phone Subscriber Number Group Number Insured Name Patient Relationship to Insured Coverage Start Date Coverage End Date [facility] [address] [address] [place] [address] [id number] MARISOL CHAPARRO Self - patient is the insured Medical (General) History Medical History History ICD Code COVID-19 U07.1 Surgical History Surgery Date(Month/Year) Section X2 BTL 1986 Tubal reversal 1996 Hospitalization History Reason Date(Month/Year) See Surgical Hx
--- OUTSIDE RECORDS SUMMARY | 2024-06-18 10:04 | XMS_ITS | Clinical Summary ---
Author Organization [facility] Address [address] [place] [address] Care Team Providers Care Die Maker Apprentice Name Role Phone Fauzia Moreno Primary Care Provider [phone] Allergies Active Allergy Reactions Criticality Noted Date [...] age to complete this topic Care Teams Die Maker Apprentice Relationship Specialty Start Date End Date Fauzia Moreno DO PCP - General Internal Medicine 06/12/18
--- OUTSIDE RECORDS SUMMARY | 2024-06-18 10:04 | XMS_ITS ---
Author Organization [employer] Address [address] [place], [place] [address] [facility] [address] [place] [address] Care Team Providers Care Bottle Label Inspector Name Role Phone ANTOLIN SOMMERS Primary Care Provider DAIVD Pham Unavailable [phone] REASON FOR VISIT RESULTS & ? SURGERY REFERRAL Encounters Encounter Location Date Provider Diagnosis [facility] [address] [place] [address] [address] [place] [address] 12/11/2023 DAVID FOLEY Plan Of Treatment Next Appt Details Provider Name:DAVID Trejo, 09/15/2024 09:00:00 AM, [address] [place] [address], [address], [place], [address], Progress Notes * MARISOL HCAPARRODOB: 3 (63 yo F)Acc No.[id number]:12/11/2023 Patient:?MARISOL CHAPARRO :1960???Age:63 Y???Sex:Female Address:[address] [place] [address], [facility], [place], [address] * * Date:?
--- OUTSIDE RECORDS SUMMARY | 2024-06-18 10:05 | XMS_ITS | Clinical Summary ---
Author Organization [facility] Address [address] [place] [address] Care Team Providers Care Pin Puller Name Role Phone Fauzia Moreno DO Primary Care Provider [phone] Family History Medical History Relation Name Comments [...] age to complete this topic Care Teams Pin Puller Relationship Specialty Start Date End Date Fauzia Moreno DO PCP - General Pediatrics 11/14/16
--- OUTSIDE RECORDS SUMMARY | 2024-06-18 10:05 | XMS_ITS ---
Author Organization [employer] [facility] Address [address] [place] [address] [address] [place] [address] Care Team Providers Care Cold Meat Chef Name Role Phone MATTHIEUANTOLIN Primary Care Provider DAVID Pham Unavailable [phone] REASON FOR VISIT HSONO/EB/AUB Encounters Encounter Location Date Provider Diagnosis [facility] [address] [address] 11/01/2023 DAVID FOLEY Abnormal uterine and vaginal bleeding, unspecified N93.9 Assessments Encounter Date Diagnosis (ICD Code) Assessment Notes Treatment Notes Treatment Clinical Notes Section Notes 11/01/2023 Abnormal uterine and vaginal bleeding, unspecified (ICD-10 - N93.9) Plan Of Treatment Next Appt Details Follow Up: prn, Reason: Provider Name:DAVID Trejo, 09/15/2024 09:00:00 AM, [address] [place] [address], [address], [place], [address], Procedure Notes * Category Sub-Category Detail Notes [...] * MARISOL CHAPARRODOB: 3 (63 yo F)Acc No.[id number]:11/01/2023 Patient:?MARISOL CHAPARRO Provider:?DAVID FOLEY MD :1960???Age:63 Y???Sex:Female D ate:11/01/2023 Address:[address] [place] [address] Pcp:ANTOLIN SOMMERS Subjective: * Chief Complaints: * ???1. HSONO/EB/AUB. 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 * Procedure Codes:?51476 URINE TEST, 28501 CATHETER FOR HYSTEROGRAPHY, 97086 BIOPSY OF UTERUS LINING * Follow Up:?prn * Images: Billing Information: * Visit Code:? * Procedure Codes:? 23272 URINE TEST. 35354 CATHETER FOR HYSTEROGRAPHY. 81448 BIOPSY OF UTERUS LINING. * Electronic signature of DAVID FOLEY MD on 06/18/2024 at 10:04 AM EST Sign off status: Pending * Provider:?DAVID FOLEY MD Date:?2023 Generated for Dorinda nation/Rene/Joeitting on:?06/18/2024 10:04 AM EST
--- OUTSIDE RECORDS SUMMARY | 2024-06-18 10:05 | XMS_ITS ---
Author Organization [employer] [facility] Address [address] [place] [address] Care Team Providers Care Fence Rider Name Role Phone ANTOLIN SOMMERS Primary Care Provider DAVID Pham Unavailable [phone] Allergies Allergen (clinical drug ingredient) Drug/Non Drug Allergy documented on EMR Reaction Allergy Type Onset Date Status Shellfish (FN) Shellfish-derived Products anaphylaxis Drug Allergy Active Results Component Value Reference Range Notes Test, Urine Reviewed date:11/29/2023 10:53:05 AM Interpretation: Performing Lab: Notes/Report: Test, Urine NEG SURGICAL PATHOLOGY Reviewed date:12/12/2023 11:42:33 AM Interpretation: Performing Lab:Testing performed or reported by [facility] [address] Zan Amaya MD, Wardrobe Custodian [facility]# [id number] Notes/Report: Patient Name: MARISOL CHAPARRO Lab Patient [...] of tissue received is interpreted as not event sales representative of the endometrium. Clinical correlation [...] specimen processing and staining is performed at [facility], [address] [place] [address] (CLIA#[id number]). Its performance characteristics determined by [facility]. Gregoria Gonzalez M.D. Wardrobe Custodian of Surgical Pathology, Bob Cox M.D. Wardrobe Custodian Cytopathology Phone #: [phone], On-Call Pathologist: [id number] REASON FOR VISIT HSONO/EB/AUB Medications Medication SIG (Take, Route, Fr equency, Duration) Notes Start Date End Date Status miSOPROStol 200 MCG as directed Orally 8 -12 hrs prior to appointment for 1 days 09/13/2023 Active Encounters Encounter Location Date Provider Diagnosis [facility] [employer] [place] [address] [place] [address] 11/29/2023 DAVID FOLEY Abnormal uterine and vaginal bleeding, unspecified N93.9 Assessments Encounter Date Diagnosis (ICD Code) Assessment Notes Treatment Notes Treatment Clinical Notes Section Notes 11/29/2023 Abnormal uterine and vaginal bleeding, unspecified (ICD-10 - N93.9) Plan Of Treatment Next Appt Details Follow Up: prn, Reason: Provider Name:DAVID Trejo, 09/15/2024 09:00:00 AM, [address], [address], [place], [address], Procedure Notes * Category Sub-Category Detail Notes [...] smooth and measures 12.1mm, Polyp(s) noted - [id number] Progress Notes * MARISOL CHAPARRODOB: 3 (63 yo F)Acc No.[id number]:11/29/2023 Patient:?MARISOL CHAPARRO Provider:?DAVID FOLEY MD :1960???Age:63 Y???Sex:Female D ate:11/29/2023 Address:[address] [place] [address], [place] Pcp:ANTOLIN SOMMERS Subjective: * Chief Complaints: * ???HSONO/EB/AUB * HPI: ???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 Patient presents today for sonohysterogram and endometrial biopsy. 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 Test:?Negative.?Indication:?Continued menses at age 63, [...] will be called with results..? * Procedure Codes:?63417 URINE [id number] CATHETER FOR [id number] BIOPSY OF UTERUS LINING * Follow Up:?prn * Images: Billing Information: * Visit Code:? * Procedure Codes:? 67943 URINE TEST. 17720 CATHETER FOR HYSTEROGRAPHY. 16318 BIOPSY OF UTERUS LINING. * Sign off status: Completed true * Provider:?DAVID FOLEY MD Date:?2023 Generated for Dorinda nation/Rene/Joeitting on:?06/18/2024 10:04 AM EST
== END 2024-06-18 09:55 | disposition home or self-care (01) ==
PROVIDERS: PCP Internal Medicine; Visit Provider Orthopaedic Surgery
DX: M17.0 Bilateral primary osteoarthritis of knee (principal); M17.11 Unilateral primary osteoarthritis, right knee
CPT/HCPCS: 20610

== ENCOUNTER → 2024-06-18 09:06 | Outpatient (BNVA) | payer OTHER, SELFPAY | PROVIDERS: PCP Internal Medicine; Visit Provider Orthopaedic Surgery | DX: M17.0 Bilateral primary osteoarthritis of knee (principal) | CPT/HCPCS: 20610; J2003; J7323 ==

== ENCOUNTER 2024-12-18 09:04 | Outpatient (REF) | payer OTHER, SELFPAY ==
[2024-12-18 13:12] LABS: MANUAL DIFF FLAG NO
[2024-12-18 13:23] LABS: Hematocrit 38.5 % (37.0-47.0); Hemoglobin 12.8 g/dl (12.0-16.0); Imm Gran Abs Auto 0.03 X10*3/uL (0.00-0.03); Imm Gran Pct Auto 0.4 % (0.0-0.4); Lymphocytes Absolute Auto 2.2 X10*3/uL (1.2-4.9); Mean Corpuscular HGB Conc 33.2 g/dl (31.0-35.0); Mean Corpuscular Hemoglobin 28.1 pg (27.0-33.0); Mean Corpuscular Volume 84.6 fL (80.0-98.0); NRBC Abs Auto 0.000 X10*3/uL (0.0-0.012); NRBC Pct Auto 0.0 /100WBC (0.0-0.2); Platelet Count 324 X10*3/uL (160-400); Red Blood Count 4.55 X10*6/uL (4.20-5.50); White Blood Count 7.9 X10*3/uL (4.8-10.8)
[2024-12-18 13:49] LABS: Alanine Aminotransferase 11 U/L (0-31); Albumin Level 4.2 g/dL (3.5-5.0); Alkaline Phosphatase 97 U/L (39-117); Anion Gap 12 (12-20); Aspartate Amino Transferase 25 U/L (5-31); Blood Urea Nitrogen 19 mg/dL (9-16); Calcium 9.4 mg/dL (8.4-10.2); Carbon Dioxide 29 mmol/L (22-29); Chloride 103 mmol/L (96-108); Cholesterol 201 mg/dL (<200); Estimated Glomerular Filt Rate > 60; HDL Cholesterol 47 mg/dL (>40); Potassium 4.2 mmol/L (3.3-5.1); Sodium 140 mmol/L (135-145); Total Protein 7.6 g/dL (6.5-8.0); Triglycerides 120 mg/dL (<150)
[2024-12-18 14:06] LABS: Vitamin B12 342 pg/mL (200-900)
[2024-12-23 15:38] LABS: Vitamin D 25-OH, D2 <4 ng/mL; Vitamin D 25-OH, D3 28 ng/mL; Vitamin D 25-OH, Total 28 ng/mL (30-100)
== END 2024-12-18 09:05 | disposition home or self-care (01) ==
LOC: HO.HMGCLDS 09:04
PROVIDERS: PCP Internal Medicine; Visit Provider Internal Medicine
DX: E66.01 Morbid (severe) obesity due to excess calories (principal); R73.03 Prediabetes; K21.9 Gastro-esophageal reflux disease without esophagitis; N28.9 Disorder of kidney and ureter, unspecified; D50.0 Iron deficiency anemia secondary to blood loss (chronic); M79.604 Pain in right leg; M79.605 Pain in left leg; Z79.899 Other long term (current) drug therapy
CPT/HCPCS: 36415; 80053; 80061; 82306; 82607; 83036; 84443; 85025; 96127; 99212

== ENCOUNTER 2024-12-18 09:04 | Outpatient (AMB) | payer OTHER, SELFPAY ==
--- OUTSIDE RECORDS SUMMARY | 2023-11-01 06:00 | XMS_ITS ---
Author Organization Total [facility] Address [address] [address] Care Team Providers Care Animal Biologist Name Role Phone ANTOLIN SOMMERS Primary Care Provider DAVID Pham Unavailable [phone] REASON FOR VISIT HSONO/EB/AUB Encounters Encounter Location Date Provider Diagnosis [facility] [employer] [place] [employer] [address] [address] 11/01/2023 DAVID FOLEY Plan Of Treatment No Information Progress Notes * MARISOL CHAPARRODOB: 3 (64 yo F)Acc No.[id number]:11/01/2023 Patient: MARISOL SOW Provider: Brianna FOLEY MD :1960 A ge:63 Y S ex:Female Date:11/01/2023 Address:[address] [place] [address], [id number] Pcp:ANTOLIN SOMMERS Subjective: * Chief Complaints: * 1 . HSONO/EB/AUB. * Medical History: Objective: * Vitals: Assessment: Plan: * Treatment: * Images: Billing Information: * Visit Code: * Procedure Codes: * Electronic signature of DAVID FOLEY MD on 12/18/2024 at 09:53 AM EDT Sign off status: Pending * Provider: Brianna FOLEY MD Date: 11/01/2023 Generated for Printi ng/Faxing/eTransmitting on: 12/18/2024 09:53 AM EDT
--- OUTSIDE RECORDS SUMMARY | 2023-11-01 10:50 | XMS_ITS ---
Author Organization Total [facility] Address [address] [address] Care Team Providers Care Light Industrial Name Role Phone ANTOLIN SOMMERS Primary Care Provider DAVID Pham Unavailable [phone] REASON FOR VISIT HSONO/EB/AUB Encounters Encounter Location Date Provider Diagnosis [facility] [employer] [address] [address] 11/01/2023 DAVID FOLEY Plan Of Treatment No Information Progress Notes * MARISOL CHAPARRODOB: 3 (64 yo F)Acc No.[id number]:11/01/2023 Patient: MARISOL SOW Provider: Brianna FOLEY MD :1960 A ge:63 Y S ex:Female Date:11/01/2023 Address:[address] [place] [address], [id number] Pcp:ANTOLIN SOMMERS Subjective: * Chief Complaints: * [...]
--- OUTSIDE RECORDS SUMMARY | 2023-11-01 11:00 | XMS_ITS ---
Author Organization Total [facility] Address [address] [facility] [address] [place] [address] Care Team Providers Care Athletic Field Custodian Name Role Phone ANTOLIN SOMMERS Primary Care Provider DAVID Pham Unavailable [phone] REASON FOR VISIT HSONO/EB/AUB Encounters Encounter Location Date Provider Diagnosis [facility] [address] [address] 11/01/2023 DAVID FOLEY Abnormal uterine and vaginal [...] * MARISOL CHAPARRODOB: 3 (64 yo F)Acc No.[id number]:11/01/2023 Patient: MARISOL SOW Provider: Brianna FOLEY MD :1960 A ge:63 Y S ex:Female Date:11/01/2023 Address:[address] [place] [address] Pcp:ANTOLIN SOMMERS Subjective: * Chief Complaints: * 1 . HSONO/EB/AUB. * HPI: G YN (Procedures/Surgeries): Patient presents today for sonohysterogram and endometrial biopsy. 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 05289 CATHETER FOR HYSTEROGRAPHY. 92446 BIOPSY OF UTERUS LINING. * Electronic signature of DAVID FOLEY MD on 12/18/2024 at 09:53 AM EDT Sign off status: Pending * Provider: Brianna FOLEY MD Date: 0 11/01/2023 Generated for Dorinda nation/Rene/Joeitting on: 0 12/18/2024 09:53 AM EDT
--- OUTSIDE RECORDS SUMMARY | 2024-09-15 05:00 | XMS_ITS ---
Author Organization [employer] 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 Medications Medication SIG (Take, Route, Fr equency, Duration) Notes Start Date End Date Status miSOPROStol 200 MCG as directed Orally 8 -12 hrs prior to appointment; Duration: 1 days 09/13/2023 Active Encounters Encounter Location Date Provider Diagnosis [facility] [employer] [address] [address] 09/15/2024 DAVID FOLEY Encounter for gynecological examination [...] Follow Up: 1 Year, Reason: Y early Gym Attendant Exam Progress Notes * MARI CHAPARRODOB: 3 (64 yo F)Acc No.[id number]:09/15/2024 PROGRESS NOTES Patient: MARI SOW Provider: Brianna FOLEY MD :1960 A ge:64 Y S ex:Female Date:09/15/2024 Address:[address] [place], [place] [id number] Pcp:ANTOLIN SOMMERS Subjective: * Chief Complaints: * 1 . 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 She has been in state of [...] to Dr Josefina Rodriguez, who did a [facility] Hysteroscopy on 05/26/24. This showed EIN and she was referred to riveter automobile brakes-oncology. She and Dr Mcbride (riveter automobile brakes-onc) discussed hysterectomy vs IUD, and Mari opted [...] Her last mammogram was *May 2023 at [facility]. She does have a family history of colon cancer - PGM. She a has *not had a colonoscopy. She has a consult scheduled next month. The patient does *not exercise. She reports knee arthritis. * ROS: A nnual Gym Attendant Exam ROS: Bowel habit changes d enies. [...] Denies A nxiety. * Medical History: * Gym Attendant History: G ravida/ Para 2 /2. S [...] no acute distress, well developed, well nourished, mutual fund manager present in room. HEAD: n ormocephalic, atraumatic. [...] * Follow Up: 1 Year (Reason: Yearly Gym Attendant Exam) * Images: Billing Information: * Visit Code: 22922 Preventive Care Est Pt. Age 40-64. 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 She has been in state of [...] to Dr Josefina Rodriguez, who did a [facility] Hysteroscopy on 05/26/24. This showed EIN and she was referred to riveter automobile brakes-oncology. She and Dr Mcbride (riveter automobile brakes-onc) discussed hysterectomy vs IUD, and Mari opted [...] Her last mammogram was *May 2023 at [facility]. She does have a family history of colon cancer - PGM. She a has *not had a colonoscopy. She has a consult scheduled next month. The patient does *not exercise. She reports knee arthritis. Examination Category Sub-Category Detail Notes Category Not es General Examination GENERAL APPEARANCE: in no ac [place] distress, well developed, well nourished, mutual fund manager present in room HEAD: normocephalic, atrau matic [...]
[2024-12-18 09:09] VITALS: BP 130/80; PULSE 74; O2SAT 97; BMI 51.1
--- NOTE | 2024-12-18 09:09 | A.OFFPC_ITS ---
Vital Signs 12/18/24 09:09 Height 4 ft 11 in Weight 253 lb BMI 51.1 BP 130/80 Blood Pressure Location Rt brachial Position Sitting Pulse 74 Pulse Source Pulse Oximeter Pulse Oximetry (%) 97 Intake Visit Reasons: Both legs pain Allergies shellfish derived Allergy (Unknown, Verified 12/18/24 09:09) Unknown seafood Allergy (Verified 12/18/24 09:09) Unknown Medication List - Last Reconciled 12/18/24 by Franco Del Castillo MD albuterol sulfate 90 mcg/actuation (ProAir HFA) 2 puffs inhalation Q4-6H PRN cholecalciferol (vitamin D3) 50 mcg PO DAILY mecobalamin (vitamin B12) 1,000 mcg sublingual DAILY Tobacco use date assessed: 12/18/24 Dental Screening Dental Screen Date: 12/18/24 Did you have a dental visit in the last 12 months?: Yes Did you have a dental problem in the last 6 months where you did not have access to dental care?: No Was dental information given to patient?: Patient has dentist HPI Both legs pain HPI Details History The patient is a 64 year old female presenting with lower leg pain and knee bila teral arthritis. Lower leg pain: - The pain started approximately two wee ks ago. - Pain is described as affecting both le gs, worsening with walking or standing for prolonged periods. - The patient recently returned from a [facility] to [place], where she did significant walking, which potentially exacerbated the pain. - Pain is localized primarily to the ant erior aspect of the lower legs and is exacerbated by motion. - Pain severity varies, typically 3/10 c urrently but can reach up to 10/10 when severe. - The patient managed the pain previousl y with Tylenol and ibuprofen. - There is concern about a potential fam jean pierre history of blood clots, though the patient denies calf pain, suggesting muscular strain without clots. Arthritis: - Chronic osteoarthritis diagnosed in knees. - The patient receives gel injections ev humberto six months for arthritis management. - Last treatment was overdue. - Swelling of both knees was noted, furt her exacerbated by activity. - Activity is limited due to knee pain. Medical History: - Osteoarthritis in both knees. - Anemia (noted in previous labs). - Prediabetes. - History of kidney stones. - Presence of precancerous uterine cells (managed with IUD). Established with OBGYN Medications: - Tylenol for pain management. - Ibuprofen for pain management (occasio martine). - Vitamin D - Vitamin B12 by patient's own choice. 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 - Recent travel to [place] involving inc reased walking activity likely impacting knee pain and discomfort. - Efforts to manage body weight were ind irectly indicated as a concern. Problem List - Osteoarthritis of both knees. - Lower leg pain. - Prediabetes. - History of anemia. - Presence of precancerous uterine cells . - History of nephrolithiasis (kidney sto roby). Patient Instructions - Avoid excessive walking or standing to help manage pain. - Continue taking Tylenol for pain as ne eded, avoiding ibuprofen due to kidney concerns. - Utilize warm olive oil massages in the evening for pain relief in the legs. - Schedule and attend regular physical e xams and updates on blood work. - Seek further appointments with the kne e specialist for gel injections. - Maintain fasting status for upcoming b lood work. - Monitor and report any persistent or w orsening symptoms promptly. Review of Systems General: No fever no chills neurological: No headaches no dizziness ear nose throat: No sore throat no hearing difficulty no ear pain cardiovascular: No syncope, no chest pain, no palpitations gastrointestinal: No nausea vomiting or diarrhea endocrine: No polyuria polydipsia no heat intolerance genitourinary: No dysuria skin: No new complaints Physical Exam general: No acute distress HEENT: No acute findings neck: Supple respiratory system: Able to talk in full sentences, no audible wheeze no stridor cardiovascular: S1-S2 RRR gastrointestinal: No pain extremities: Pain is located lower legs anteriorly with palpation of musculature, no pain in calves FEED MIXER: Alert awake oriented x3 motor sensory intact skin: Normal turgor [facility] Medical History Benign neoplasm of skull Asthma Surgical History History of breast biopsy History of tonsillectomy History of section Family History Father HTN (hypertension) Diabetes mellitus Mother HTN (hypertension) Kidney failure CVD (cardiovascular disease) Diabetes mellitus Mental health disorder Daughter No problems noted. Daughter No problems noted. 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 1. Little interest or pleasure in doing things: not at all 2. Feeling down, depressed, or hopeless: not at all 3. Trouble falling or staying asleep, or sleeping too much: several days 4. Feeling tired or having little energy: more than half the days 5. Poor appetite or overeating: more than half the days 6. Feeling bad about yourself - or that you are a failure or have let yourself or your family down: not at all 7. Trouble concentrating on things, such as reading the newspaper or watching television: not at all 8. Moving or speaking so slowly that other people could have noticed. Or the opposite - being so fidgety or restless that you have been moving around a lot more than usual: nearly every day 9. Thoughts that you would be better off or of hurting yourself in some way: not at all Total score: 8 Depression Screening Interpretation: Positive Depression Screening Follow-up: Community Mental Health Worker F/U Depression Screening Done: Yes 14287 - PHQ-9 Billing: Yes Source: Developed by Drs. River Pavon, Holley Rutledge, Anibal Mercado and colleagues, with an educational luciana from [employer]. Thrive Questionnaire Date Thrive assessed: 12/18/24 I am a: Patient What is your living situation today?: I have a steady place to live Within the past 12 months, did the food you bought not last and you didn't have the money to get more?: Never true Within the past 12 months, did you worry whether your food would run out before you got money to buy more?: Never true Do you have trouble paying for medicines?: No Do you have trouble getting transportation to medical appointments?: No Do you have trouble paying your heating and electricity bill?: No Do you have trouble taking care of your child, family member or friend?: No Do you have trouble with day-to-day activities such as bathing, preparing meals, shopping, managing finances, etc.?: No Are you currently unemployed and looking for a job?: Yes Are you interested in more education?: No Please select the resources that you would like help with: None Currently or been in a relationship where the following occur: No concerns reported THRIVE Score: 0 AUDIT C Alcohol Use Questionnaire (AUDIT-C) 1. How often do you have a drink containing alcohol?: Never 3. How often do you have six or more drinks on one occasion?: Never Total Score: 0 Score Reviewed/Action Taken: Yes MCKENZIE-7 AMB Questionnaire MCKENZIE-7 Date MCKENZIE - 7 assessed: 12/18/24 Feeling nervous, anxious, or on edge: 0 = Not at all Not being able to stop or control worryin = Several days Worrying too much about different things: 1 = Several days Trouble relaxin = Several days Being so restless that it is hard to sit still: 0 = Not at all Becoming easily annoyed or irritable: 1 = Several days Feeling afraid as if something awful might happen: 0 = Not at all Total MCKENZIE-7 score (0-4 normal; 5-9 mild; 10-14 moderate; 15-21 severe): 4 Source: Developed by Drs. River Pavon, Holley Rutledge, Anibal Mercado and colleagues, with an educational luciana from [employer]. MCKENZIE-7 Assessment Billing MCKENZIE-7 Assessment Tool: MCKENZIE-7 Assessment 44025 Physical exam (Primary Care) Vital Signs: Last Vital Signs Pulse 74 12/18/24 09:09 BP 130/80 12/18/24 09:09 Pulse Ox 97 12/18/24 09:09 BMI result Body Mass Index 51.1 Tobacco/Smoking Status: Tobacco use Status Tobacco use date assessed 12/18/24 12/18/24 09:10 Patient Tobacco Use Status Never used Tobacco 12/18/24 09:10 e-Cigarette/Vaping Use Never Used 12/18/24 09:10 PHQ-9: PHQ-9 Score PHQ-9: Total score 8 12/18/24 09:28 Depression Screening Interpretation: Positive Depression Screening Follow-up: Community Mental Health Worker F/U Thrive Assessment: Date of Thrive Assessment Date Thrive assessed 12/18/24 12/18/24 09:10 Currently or been in a relationship where the following occur: No concerns reported Coding Level of Care Code Est Pt Level 4 (43959) Diagnoses Lower extremity pain, bilateral M79.604; M79.605 Primary osteoarthritis of both knees M17.0 Osteoarthritis type: primary Pre-diabetes R73.03 Chronic GERD K21.9 Nephropathy N28.9 Iron deficiency anemia due to chronic blood loss D50.0 Anemia type: iron deficiency Iron deficiency anemia type: chronic blood loss Morbid obesity due to excess calories E66.01 Additional Codes MCKENZIE-7 Assessment Billing - MCKENZIE-7 Assessment Tool: MCKENZIE-7 Assessment 78618 ([id number]) PHQ-9 - 86008 - PHQ-9 Billing: Yes ([id number]) Assessment & Plan Assessment & Plan (1) Lower extremity pain, bilateral: Code(s): M79.604 - Pain in right leg; M79.605 - Pain in left leg Category: Medical (2) Osteoarthritis of knees, bilateral: Code(s): M17.0 - Bilateral primary osteoarthritis of knee Category: Medical Qualifiers: Osteoarthritis type: primary Qualified Code(s): M17.0 - Bilateral primary osteoarthritis of knee (3) Pre-diabetes: Code(s): R73.03 - Prediabetes Category: Medical (4) Chronic GERD: Code(s): K21.9 - Gastro-esophageal reflux disease without esophagitis Category: Medical (5) Nephropathy: Code(s): N28.9 - Disorder of kidney and ureter, unspecified Category: Medical (6) Anemia: Code(s): D64.9 - Anemia, unspecified Category: Medical Qualifiers: Anemia type: iron deficiency Iron deficiency anemia type: chronic blood loss Qualified Code(s): D50.0 - Iron deficiency anemia secondary to blood loss (chronic) (7) Morbid obesity due to excess calories: Comment: If your BMI is between 25 and 29.9, you are overweight. If your BMI is 30 or greater, you are obese. ___ Being obese is a problem, because it increases the risks of many different health problems. It can also make it hard for you to move, breathe, and do other things that people who are at a healthy weight can do easily. Plus, being obese can be hard emotionally. ___ What are the health risks of being obese? Being obese increases a persons risk of developing many health problems. Here are just a few examples: __ Diabetes High blood pressure, High cholesterol, Heart disease (including heart attacks) Stroke, Sleep apnea (a disorder in which you stop breathing for short periods while asleep) Asthma, Cancer __ Does being obese shorten a persons life? Yes. Studies show that people who are obese younger than people who are a healthy weight. They also show that the risk of goes up the heavier a person is. The degree of increased risk depends on how long the person has been obese, and on what other medical problems he or she has. , Reduce your carbohydrate intake and choose carbs that are complex. Remember as a general rule of thumb, avoid highly processed foods. If it's white and soft, it's probably been stripped of its nutritional value. Change white bread to whole wheat bread, white rice to brown rice, white potatoes to sweet potatoes, white pasta to whole wheat pasta. Monitor portion sizes too: protein should be no bigger than your fist. Limit your red meat intake to only once or twice a wk. Eat more white meat but make sure to avoid creamy sauces etc. Broiling, baking or grilling is best. Increase dark, green leafy vegetables and fruits. Code(s): E66.01 - Morbid (severe) obesity due to excess calories Category: Medical Plan History The patient is a 64 year old female presenting with lower leg pain and knee bilateral arthritis. Lower leg pain: - The pain started approximately two weeks ago. - Pain is described as affecting both legs, worsening with walking or standing for prolonged periods. - The patient recently returned from a trip to [place], where she did significant walking, which potentially exacerbated the pain. - Pain is localized primarily to the anterior aspect of the lower legs and is exacerbated by motion. - Pain severity varies, typically 3/10 currently but can reach up to 10/10 when severe. - The patient managed the pain previously with Tylenol and ibuprofen. - There is concern about a potential family history of blood clots, though the patient denies calf pain, suggesting muscular strain without clots. Arthritis: - Chronic osteoarthritis diagnosed in both knees. - The patient receives gel injections every six months for arthritis management. - Last treatment was overdue. - Swelling of both knees was noted, further exacerbated by activity. - Activity is limited due to knee pain. Medical History: - Osteoarthritis in both knees. - Anemia (noted in previous labs). - Prediabetes. - History of kidney stones. - Presence of precancerous uterine cells (managed with IUD). Established with OBGYN Medications: - Tylenol for pain management. - Ibuprofen for pain management (occasionally). - Vitamin D - Vitamin B12 by patient's own choice. 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 - Recent travel to [place] involving increased walking activity likely impacting knee pain and discomfort. - Efforts to manage body weight were indirectly indicated as a concern. Problem List - Osteoarthritis of both knees. - Lower leg pain. - Prediabetes. - History of anemia. - Presence of precancerous uterine cells. - History of nephrolithiasis (kidney stones). Patient Instructions - Avoid excessive walking or standing to help manage pain. - Continue taking Tylenol for pain as needed, avoiding ibuprofen due to kidney concerns. - Utilize warm olive oil massages in the evening for pain relief in the legs. - Schedule and attend regular physical exams and updates on blood work. - Seek further appointments with the knee specialist for gel injections. - Maintain fasting status for upcoming blood work. - Monitor and report any persistent or worsening symptoms promptly. Orders: Orders Vitamin D 25-OH (D2 and D3) Today D50.0 - Iron deficiency anemia secondary to blood loss (chronic), E66.01 - Morbid (severe) obesity due to excess calories, K21.9 - Gastro-esophageal reflux disease without esophagitis, N28.9 - Disorder of kidney and ureter, unspecified, R73.03 - Prediabetes Comprehensive [place]. Panel Fast Today D50.0 - Iron deficiency anemia secondary to blood loss (chronic), E66.01 - Morbid (severe) obesity due to excess calories, K21.9 - Gastro-esophageal reflux disease without esophagitis, N28.9 - Disorder of kidney and ureter, unspecified, R73.03 - Prediabetes Lipid Panel Today D50.0 - Iron deficiency anemia secondary to blood loss (chronic), E66.01 - Morbid (severe) obesity due to excess calories, K21.9 - Gastro-esophageal reflux disease without esophagitis, N28.9 - Disorder of kidney and ureter, unspecified, R73.03 - Prediabetes Complete Blood Count Auto Diff Today D50.0 - Iron deficiency anemia secondary to blood loss (chronic), E66.01 - Morbid (severe) obesity due to excess calories, K21.9 - Gastro-esophageal reflux disease without esophagitis, N28.9 - Disorder of kidney and ureter, unspecified, R73.03 - Prediabetes Vitamin B12 Today D50.0 - Iron deficiency anemia secondary to blood loss (chronic), E66.01 - Morbid (severe) obesity due to excess calories, K21.9 - Gastro-esophageal reflux disease without esophagitis, N28.9 - Disorder of kidney and ureter, unspecified, R73.03 - Prediabetes TSH reflex Free T4 Today D50.0 - Iron deficiency anemia secondary to blood loss (chronic), E66.01 - Morbid (severe) obesity due to excess calories, K21.9 - Gastro-esophageal reflux disease without esophagitis, N28.9 - Disorder of kidney and ureter, unspecified, R73.03 - Prediabetes Hemoglobin A1c Today D50.0 - Iron deficiency anemia secondary to blood loss (chronic), E66.01 - Morbid (severe) obesity due to excess calories, K21.9 - Gastro-esophageal reflux disease without esophagitis, N28.9 - Disorder of kidney and ureter, unspecified, R73.03 - Prediabetes
--- OUTSIDE RECORDS SUMMARY | 2024-12-18 09:53 | XMS_ITS | Patient Health Record ---
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 Name Role Phone ANTOLIN SOMMERS Primary Care Provider DAVID Pham Unavailable [phone] Allergies Allergen (clinical drug ingredient) Drug/Non Drug Allergy documented on EMR Reaction Allergy Type Onset Date Status Shellfish (FN) Shellfish-derived Products anaphylaxis Drug Allergy Active Reason For Referral No Information Medications Medication SIG (Take, Route, Fr equency, Duration) Notes Start Date End Date Status miSOPROStol 200 MCG as directed Orally 8 -12 hrs prior to appointment; Duration: 1 days 09/13/2023 Active Social History Tobacco [...] Status Risk Notes Problem Abnormal uterine bleeding ([id number]) Abnormal uterine and vaginal bleeding, unspecified (N93.9) Active confirmed Problem COVID-19 ([id number]) COVID-19 (U07.1) Active confirmed Encounters Encounter Location Date Provider Diagnosis [facility] [address] [address] 09/15/2024 DAVID FOLEY Encounter for gynecological examination [...] transmission (ICD-10 - Z11.3) Plan Of Treatment Pending Test Test Name Order Date Sonohysterogram 09/13/2023 MM Digital Screening Mammogram 3D 2024 MM Digital Screening Mammogram 3D 2023 Insurance Providers Payer Name Payer Address Payer Phone Subscriber Number Group Number Insured Name Patient Relationship to Insured Coverage Start Date Coverage End Date [employer] [address] [address] [place] [address] [id number] MARISOL CHAPARRO Self - patient is the insured Medical (General) History Medical History History ICD Code COVID-19 U07.1 Surgical History Surgery Date(Month/Year) Section X2 BTL 1986 Tubal reversal 1996 Hospitalization History Reason Date(Month/Year) See Surgical Hx
--- OUTSIDE RECORDS SUMMARY | 2024-12-18 09:53 | XMS_ITS | Clinical Summary ---
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 04/01/2018 Active Na Sulfate-K Sulfate-Mg Sulf (SUPREP BOWEL PREP KIT) 17.5-3.13-1.6 GM/177ML SolutionIndicat ions:Special screening for malignant neoplasms, colon Take two 177 mL bottles as directed 2 Bottle 06/12/2018 Active Active Problems Problem Noted Date Diagnosed Date Mild intermittent asthma without complication Resolved Problems Problem Noted Date Diagnosed Date Resolved Date Special screening for malign ant neoplasms, colon 06/12/2018 06/27/2023 Social History Tobacco Use Types Packs/Day Years Used Date Smoking Tobacco: Never Assessed Comments Unknown Sex and Gender Information Value Date Recorded Sex Assigned at Not on file Legal Sex Female 7:16 PM EST Gender Identity Not on file Sexual [...] 60-74 years 1-dose series) 2022 COVID-19 Vaccine (2023-2 5 season) 2023 Influenza Vaccine 11/13/2024 Hepatitis B Vaccines Aged Out No long er eligible based on patient's age to complete this topic Insurance Care Teams Roll Threader Operator Relationship Specialty Start Date End Date Fauzia Moreno DO PCP - General Internal Medicine 06/12/18
--- OUTSIDE RECORDS SUMMARY | 2024-12-18 09:53 | XMS_ITS | Clinical Summary ---
Author Organization [facility] Address [address] [place] [address] Care Team Providers Care Regulatory Associate Name Role Phone Fauzia Moreno Primary Care Provider [phone] Surgical History Surgery Date Site/Laterality Comments SECTION 1981, 1983 PROCEDURE: HISTORICAL Family History Medical History [...] ars (1 of 2 - PCV) 1981 Cervical Cancer Screening: P ap Smear 07/02/1983 Zoster Vaccines (1 of 2) 2012 Breast Cancer Screening 11/30/2019 11/29/2017 DTaP,Tdap,and Td Vaccines (2 - Td or Tdap) 02/24/2022 02/25/2012 Cholesterol Screening (Lipid Panel) 03/13/2022 Colorectal Cancer Screening: Colonoscopy 03/13/2022 HIV Screening 03/13/2022 Hepatitis C Screening 03/13/2022 Social Influencers of Health Screening 03/13/2022 RSV Immunization Adult Patie nts (1 - Risk 60-74 years 1-dose series) 2022 Depression Screening 04/15/2024 COVID-19 Vaccine (1 - 2023-2 5 season) 2024 Influenza Vaccine (#1) 2024 HIB Vaccines Aged Out No longer eligi [...] age to complete this topic Meningococcal B Vaccine Aged Out No l onger eligible based on patient's age to complete [...] Quality Standards Act. BIRADS 2 (Benign) - PQRI 3342F Report reviewed and signed by : Dr. River Turpin MD on 12/02/2017 1:47 PM. Workstation Name - [id number] Procedure Note River Turpin MD - 04/07/2022 [...] Mammography Quality StandardsAct. BIRADS 2 (Benign) - PQRI 3342F Report reviewed and signed by : Dr. River Turpin MD on 12/02/2017 1:47 PM.Workstation Name - [id number] Froylan Jones DO IMG BI PROCEDURES Final Result from Last 3 Months or Most Recently Relevant to Health Maintenance Care Teams Regulatory Associate Relationship Specialty Start Date End Date Fauzia Moreno DO [address] [place] [address] [place] [address] PCP - General Pediatrics 11/14/16
--- OUTSIDE RECORDS SUMMARY | 2024-12-18 09:54 | XMS_ITS | Clinical Summary ---
Author Organization [facility] Address [address] [place] [address] Care Team Providers Care Customs And Border Protection Officer Name Role Phone Fauzia Moreno DO Primary Care Provider [phone] Family History Medical History Relation Name Comments [...] (Mammogram) 11/30/2019 11/29/2017, 08/15/2016 Influenza Vaccine (#1) 2024 RSV Adult > 60+ Yrs or (1 [...] age to complete this topic Care Teams Customs And Border Protection Officer Relationship Specialty Start Date End Date Fauzia Moreno DO PCP - General Pediatrics 11/14/16
== END 2024-12-18 12:37 | disposition home or self-care (01) ==
LOC: HO.HMCC 09:05
PROVIDERS: PCP Internal Medicine; Visit Provider Internal Medicine
DX: M79.604 Pain in right leg (principal); M79.605 Pain in left leg; E66.01 Morbid (severe) obesity due to excess calories; Z68.43 Body mass index [BMI] 50.0-59.9, adult; M17.0 Bilateral primary osteoarthritis of knee; R73.03 Prediabetes; K21.9 Gastro-esophageal reflux disease without esophagitis; N28.9 Disorder of kidney and ureter, unspecified; D50.0 Iron deficiency anemia secondary to blood loss (chronic)

== ENCOUNTER 2025-01-12 08:41 | Outpatient (AMB) | payer OTHER, SELFPAY ==
--- OUTSIDE RECORDS SUMMARY | 2023-11-01 06:00 | XMS_ITS ---
Author Organization Total [facility] Address [address] [address] Care Team Providers Care Hot Plate Plywood Press Operator Name Role Phone ANTOLIN SOMMERS Primary Care Provider DAVID Pham Unavailable [phone] REASON FOR VISIT HSONO/EB/AUB Encounters Encounter Location Date Provider Diagnosis [facility] [employer] [address] [address] 11/01/2023 DAVID FOLEY Plan Of Treatment No Information Progress Notes * MARISOL CHAPARRODOB: 3 (64 yo F)Acc No.[id number]:11/01/2023 Patient: MARISOL SOW Provider: Brianna FOLEY MD :1960 A ge:63 Y S ex:Female Date:11/01/2023 Address:[address] [place] [address], [id number] Pcp:ANTOLIN SOMMERS Subjective: * Chief Complaints: * 1 . HSONO/EB/AUB. * Medical History: Objective: * Vitals: Assessment: Plan: * Treatment: * Images: Billing Information: * Visit Code: * Procedure Codes: * Electronic signature of DAVID FOLEY MD on 01/12/2025 at 09:10 AM EDT Sign off status: Pending * Provider: Brianna FOLEY MD Date: 11/01/2023 Generated for Printi ng/Faxing/eTransmitting on: 01/12/2025 09:10 AM EDT
--- OUTSIDE RECORDS SUMMARY | 2023-11-01 10:50 | XMS_ITS ---
Author Organization [facility] Address [address] [address] Care Team Providers Care Vegetable I Farmworker Name Role Phone ANTOLIN SOMMERS Primary Care Provider DAVID Pham Unavailable [phone] REASON FOR VISIT HSONO/EB/AUB Encounters Encounter Location Date Provider Diagnosis [facility] [address] [address] 11/01/2023 DAVID FOLEY Plan Of Treatment No Information Progress Notes * MARISOL CHAPARRODOB: 3 (64 yo F)Acc No.[id number]:11/01/2023 Patient: MARISOL SOW Provider: Brianna FOLEY MD :1960 A ge:63 Y S ex:Female Date:11/01/2023 Address:[address] [place] [address], [id number] Pcp:ANTOLIN SOMMERS Subjective: * Chief Complaints: * 1 . HSONO/EB/AUB. * Medical History: Objective: * Vitals: Assessment: Plan: * Treatment: * Images: Billing Information: * Visit Code: * Procedure Codes: * Electronic signature of DAVID FOLEY MD on 01/12/2025 at 09:09 AM EDT Sign off status: Pending * Provider: Brianna FOLEY MD Date: 11/01/2023 Generated for Printi ng/Faxing/eTransmitting on: 01/12/2025 09:09 AM EDT
--- OUTSIDE RECORDS SUMMARY | 2023-11-01 11:00 | XMS_ITS ---
Author Organization Total [employer] [facility] Address [address] [facility] [address] [place] [address] Care Team Providers Care Room Service Manager Name Role Phone ANTOLIN SOMMERS Primary Care Provider DAVID Pham Unavailable [phone] REASON FOR VISIT HSONO/EB/AUB Encounters Encounter Location Date Provider Diagnosis [facility] [employer] [address] [address] 11/01/2023 DAVID FOLEY Abnormal uterine and vaginal [...] * MARISOL CHAPARRODOB: 3 (64 yo F)Acc No.[id number]:11/01/2023 Patient: MARISOL SOW Provider: Brianna FOLEY MD :1960 A ge:63 Y S ex:Female Date:11/01/2023 Address:[address] [place] [address] Pcp:ANTOLIN SOMMERS Subjective: * Chief Complaints: * 1 . HSONO/EB/AUB. * HPI: G YN (Procedures/Surgeries): Patient presents today for sonohysterogram and endometrial biopsy. 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 24145 CATHETER FOR HYSTEROGRAPHY. 94309 BIOPSY OF UTERUS LINING. * Electronic signature of DAVID FOLEY MD on 01/12/2025 at 09:10 AM EDT Sign off status: Pending * Provider: Brianna FOLEY MD Date: 0 11/01/2023 Generated for Dorinda nation/Rene/Joeitting on: 0 01/12/2025 09:10 AM EDT
--- OUTSIDE RECORDS SUMMARY | 2024-09-15 05:00 | XMS_ITS ---
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 Medication SIG (Take, Route, Fr equency, Duration) Notes Start Date End Date Status miSOPROStol 200 MCG as directed Orally 8 -12 hrs prior to appointment; Duration: 1 days 09/13/2023 Active Encounters Encounter Location Date Provider Diagnosis [facility] [employer] [address] [address] 09/15/2024 DAVID FOLEY Encounter for gynecological examination [...] Follow Up: 1 Year, Reason: Y early Senior Controls Technician Exam Progress Notes * MARI CHAPARRODOB: 3 (64 yo F)Acc No.[id number]:09/15/2024 PROGRESS NOTES Patient: MARI SOW Provider: Brianna FOLEY MD :1960 A ge:64 Y S ex:Female Date:09/15/2024 Address:[address] [place], [place] [phone] Pcp:ANTOLIN SOMMERS Subjective: * Chief Complaints: * 1 . 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 * HPI: C onstitutional: Mair is a 64yo with LMP who presents for her yearly supervisor chassis assembly exam. She has been in state of [...] to Dr Josefina Rodriguez, who did a [facility] Hysteroscopy on 05/26/24. This showed EIN and she was referred to supervisor chassis assembly-oncology. She and Dr Mcbride (supervisor chassis assembly-onc) discussed hysterectomy vs IUD, and Mari opted [...] Her last mammogram was *May 2023 at [facility]. She does have a family history of colon cancer - PGM. She a has *not had a colonoscopy. She has a consult scheduled next month. The patient does *not exercise. She reports knee arthritis. * ROS: A nnual Senior Controls Technician Exam ROS: Bowel habit changes d enies. [...] Denies A nxiety. * Medical History: * Senior Controls Technician History: G ravida/ Para 2 /2. S [...] no acute distress, well developed, well nourished, food checker present in room. HEAD: n ormocephalic, atraumatic. [...] * Follow Up: 1 Year (Reason: Yearly Senior Controls Technician Exam) * Images: Billing Information: * Visit Code: [id number] Preventive Care Est Pt. Age 40-64. * Procedure Codes: * Electronic signature of DAVID FOLEY MD on 01/12/2025 at 09:09 AM EDT Sign off status: Pending * Provider: Brianna FOLEY MD Date: 0 09/15/2024 Generated for Jgi rios/Faxing/eTransmitting on: 0 01/12/2025 09:09 AM EDT History and Physical Notes * HPI (History of Present Illness) Category Sub-Category Detail Notes Category Not es Constitutional Mari is a 64yo with LMP who presents for her yearly supervisor chassis assembly exam. She has been in state of [...] to Dr Josefina Rodriguez, who did a [facility] Hysteroscopy on 05/26/24. This showed EIN and she was referred to supervisor chassis assembly-oncology. She and Dr Mcbride (supervisor chassis assembly-onc) discussed hysterectomy vs IUD, and Mari opted [...] Her last mammogram was *May 2023 at [facility]. She does have a family history of colon cancer - PGM. She a has *not had a colonoscopy. She has a consult scheduled next month. The patient does *not exercise. She reports knee arthritis. Examination Category Sub-Category Detail Notes Category Not es General Examination GENERAL APPEARANCE: in no ac simone distress, well developed, well nourished, food checker present in room HEAD: normocephalic, atrau matic [...]
[2025-01-12 08:48] VITALS: BP 128/82; PULSE 75; O2SAT 98; BMI 50.5
--- NOTE | 2025-01-12 08:48 | MHC.PC.OV ---
Vital Signs 01/12/25 08:48 Height 4 ft 11 in Weight 250 lb BMI 50.5 BP 128/82 Blood Pressure Location Lt brachial Position Sitting Pulse 75 Pulse Source Pulse Oximeter Pulse Oximetry (%) 98 Intake Visit Reasons: pe Allergies shellfish derived Allergy (Unknown, Verified 01/12/25 08:48) Unknown seafood Allergy (Verified 01/12/25 08:48) Unknown Medication List - Last Reconciled 01/12/25 by Franco Del Castillo MD albuterol sulfate 90 mcg/actuation (ProAir HFA) 2 puffs inhalation Q4-6H PRN cholecalciferol (vitamin D3) 50 mcg PO DAILY mecobalamin (vitamin B12) 1,000 mcg sublingual DAILY Tobacco use date assessed: 12/18/24 Dental Screening Dental Screen Date: 12/18/24 HPI pe HPI Details History of Present Illness The patient is a 64 year old female presenting for a routine physical examination. Hypercholesterolemia: - The patient has an LDL level of 130 mg/dL. Low Vitamin D Levels: - The patient continues to exhibit low vitamin D levels despite supplementation. Menorrhagia: - The patient reports experiencing regular menstrual periods and continues to menstruate monthly at the age of 64. History of IUD placement: - The patient had an IUD placed within the current year for management due to regular menstruation. Routine Health Maintenance: - The patient is due for a mammogram this year; the last one was in May of the previous year. - The patient has not undergone a colonoscopy but plans to have it done due to previous appointment cancellations. Health Maintenance - Patient is taking vitamin D and B12 supplements. - Routine mammogram last completed May of last year; patient advised to schedule the current year's mammogram. - Colonoscopy planned; patient reported previous cancellation of the appointment. - Immunization status potentially not up to date; tetanus booster and flu vaccine recommended and administered during the visit. [facility] - [facility] OBGYN for gynecological care - [facility] Gastroenterology for colonoscopy Diagnostic results - Labs: - Complete Blood Count (CBC) within normal limits - Electrolytes within normal limits - Fasting glucose: 96 mg/dL - Hemoglobin A1c: 5.9% - Liver enzymes within normal limits - LDL cholesterol: 130 mg/dL - Thyroid Stimulating Hormone (TSH): 1.99 Patient Instructions - Schedule and complete a mammogram as soon as possible. - Contact [facility] for a colonoscopy appointment. - Continue taking vitamin D and B12 supplements. - Maintain current efforts for weight loss. - Received tetanus booster and flu vaccine during this visit. Review of Systems - General: No fever no chills - Neurological: No headaches no dizziness - Ear nose throat: No sore throat no hearing difficulty no ear pain - Cardiovascular: No syncope, no chest pain, no palpitations - Gastrointestinal: No nausea vomiting or diarrhea - Endocrine: No polyuria polydipsia no heat intolerance - Genitourinary: No dysuria - Skin: No new complaints Physical Exam General: Cooperative, healthy appearing, comfortable, no acute distress Orientation: Patient oriented x3 Head: Normal to inspection Ears: Within normal limit visually Nose: Normal external nose present Face and sinus: Normal facial exam Eyes: Appearance normal, extraocular movement intact pupils reactive Neck: Normal visual inspection and supple Respiratory: Normal respiratory effort and able to speak in complete sentences. Clear to auscultation, no stridor Cardiovascular: S1 and S2 RRR GI: Normal to inspection. Soft to palpation and nontender. Skin: Turgor normal, no acute findings Neuro: Patient oriented x3, motor sensory intact, balance intact, tandem pass Extremities: Normal to inspection, no swelling of feet or ankles range of motion intact . [facility] Medical History Benign neoplasm of skull Asthma Surgical History History of breast biopsy History of tonsillectomy History of section Family History Father HTN (hypertension) Diabetes mellitus Mother HTN (hypertension) Kidney failure CVD (cardiovascular disease) Diabetes mellitus Mental health disorder Daughter No problems noted. Daughter No problems noted. 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 Cognitive needs: No Hearing needs: No Vision needs: Yes Questionnaire Thrive Questionnaire Date Thrive assessed: 12/18/24 I am a: Patient What is your living situation today?: I have a steady place to live Within the past 12 months, did the food you bought not last and you didn't have the money to get more?: Never true Within the past 12 months, did you worry whether your food would run out before you got money to buy more?: Never true Do you have trouble paying for medicines?: No Do you have trouble getting transportation to medical appointments?: No Do you have trouble paying your heating and electricity bill?: No Do you have trouble taking care of your child, family member or friend?: No Do you have trouble with day-to-day activities such as bathing, preparing meals, shopping, managing finances, etc.?: No Are you currently unemployed and looking for a job?: Yes Are you interested in more education?: No Please select the resources that you would like help with: None Currently or been in a relationship where the following occur: No concerns reported THRIVE Score: 0 MCKENZIE-7 AMB Questionnaire MCKENZIE-7 Date MCKENZIE - 7 assessed: 12/18/24 Source: Developed by Drs. River Pavon, Holley Rutledge, Anibal Mercado and colleagues, with an educational luciana from [employer]. Physical exam (Primary Care) Vital Signs: Last Vital Signs Pulse 75 01/12/25 08:48 BP 128/82 01/12/25 08:48 Pulse Ox 98 01/12/25 08:48 BMI result Body Mass Index 50.5 Tobacco/Smoking Status: Tobacco use Status Tobacco use date assessed 12/18/24 01/12/25 08:49 Patient Tobacco Use Status Never used Tobacco 01/12/25 08:49 e-Cigarette/Vaping Use Never Used 01/12/25 08:49 Thrive Assessment: Date of Thrive Assessment Date Thrive assessed 12/18/24 01/12/25 08:49 Currently or been in a relationship where the following occur: No concerns reported Office Procedures Flu Questionnaire Does the patient have a severe egg allergy?: No Does the patient have severe life threatening allergies?: No Does the patient have a fever or illness today?: No Has the patient ever had Guillain-Brunswick Syndrome?: No Has the patient ever had any past reaction to a flu shot?: No Immunizations Fluarix 1354-0695 (PF) 45 mcg (15 mcg x 3)/0.5 mL IM syringe Performing Provider: Franco Del Castillo MD Performing Location: [facility] Administered by: Star Ortiz CMA on 01/12/25 09:10 Dose Route Admin Location Dispensed Lot Number Expiration Date NDC Dyehouse Worker 0.5 mL IM Left Deltoid 0.5 mL [id number] 10/12/25 39815-874-50 [employer] VIS Given Date VIS Provided VIS Publication Date 01/12/25 Single Vaccine 24 Eligibility Eligibility Date Funding Source Not VFC Eligible 01/12/25 Private Boostrix Tdap 2.5 Lf unit-8 mcg-5 Lf/0.5 mL intramuscular syringe Performing Provider: Franco Del Castillo MD Performing Location: [facility] Administered by: Star Ortiz CMA on 01/12/25 09:10 Dose Route Admin Location Dispensed Lot Number Expiration Date NDC Dyehouse Worker 0.5 mL IM Right Deltoid 0.5 mL [id number] 02/05/27 10627-173-50 [employer] Total Dispensed Waste 0.5 mL 0 % VIS Given Date VIS Provided VIS Publication Date 01/12/25 Single Vaccine 20 Eligibility Eligibility Date Funding Source Not VF Eligible 01/12/25 Private Coding Level of Care Code Est Pt Level 3 (34966) Est Pt Prev Care 40-64y(70918) Diagnoses Encounter for general adult medical examination with abnormal findings Z00.01 Colon cancer screening Z12.11 Morbid obesity due to excess calories E66.01 Pre-diabetes R73.03 B12 deficiency E53.8 Assessment & Plan Assessment & Plan (1) Encounter for general adult medical examination with abnormal findings: Code(s): Z00.01 - Encounter for general adult medical examination with abnormal findings Category: Medical (2) Colon cancer screening: Code(s): Z12.11 - Encounter for screening for malignant neoplasm of colon Category: Medical (3) Morbid obesity due to excess calories: Comment: If your BMI is between 25 and 29.9, you are overweight. If your BMI is 30 or greater, you are obese. ___ Being obese is a problem, because it increases the risks of many different health problems. It can also make it hard for you to move, breathe, and do other things that people who are at a healthy weight can do easily. Plus, being obese can be hard emotionally. ___ What are the health risks of being obese? Being obese increases a persons risk of developing many health problems. Here are just a few examples: __ Diabetes High blood pressure, High cholesterol, Heart disease (including heart attacks) Stroke, Sleep apnea (a disorder in which you stop breathing for short periods while asleep) Asthma, Cancer __ Does being obese shorten a persons life? Yes. Studies show that people who are obese younger than people who are a healthy weight. They also show that the risk of goes up the heavier a person is. The degree of increased risk depends on how long the person has been obese, and on what other medical problems he or she has. , Reduce your carbohydrate intake and choose carbs that are complex. Remember as a general rule of thumb, avoid highly processed foods. If it's white and soft, it's probably been stripped of its nutritional value. Change white bread to whole wheat bread, white rice to brown rice, white potatoes to sweet potatoes, white pasta to whole wheat pasta. Monitor portion sizes too: protein should be no bigger than your fist. Limit your red meat intake to only once or twice a wk. Eat more white meat but make sure to avoid creamy sauces etc. Broiling, baking or grilling is best. Increase dark, green leafy vegetables and fruits. Code(s): E66.01 - Morbid (severe) obesity due to excess calories Category: Medical (4) Pre-diabetes: Code(s): R73.03 - Prediabetes Category: Medical (5) B12 deficiency: Code(s): E53.8 - Deficiency of other specified B group vitamins Category: Medical Plan History of Present Illness The patient is a 64 year old female presenting for a routine physical examination. History of morbid obesity, B12 deficiency vitamin-D deficiency Hypercholesterolemia: - The patient has an LDL level of 130 mg/dL. Low Vitamin D Levels: - The patient continues to exhibit low vitamin D levels despite supplementation. Menorrhagia: - The patient reports experiencing regular menstrual periods and continues to menstruate monthly at the age of 64. History of IUD placement: - The patient had an IUD placed within the current year for management due to regular menstruation. Routine Health Maintenance: - The patient is due for a mammogram this year; the last one was in May of the previous year. - The patient has not undergone a colonoscopy but plans to have it done due to previous appointment cancellations. Health Maintenance - Patient is taking vitamin D and B12 supplements. - Routine mammogram last completed May of last year; patient advised to schedule the current year's mammogram. - Colonoscopy planned; patient reported previous cancellation of the appointment. - Immunization status potentially not up to date; tetanus booster and flu vaccine recommended and administered during the visit. [facility] - [facility] OBGYN for gynecological care - [facility] Gastroenterology for colonoscopy Diagnostic results - Labs: - Complete Blood Count (CBC) within normal limits - Electrolytes within normal limits - Fasting glucose: 96 mg/dL - Hemoglobin A1c: 5.9% - Liver enzymes within normal limits - LDL cholesterol: 130 mg/dL - Thyroid Stimulating Hormone (TSH): 1.99 Patient Instructions - Schedule and complete a mammogram as soon as possible. - Contact [facility] for a colonoscopy appointment. - Continue taking vitamin D and B12 supplements. - Maintain current efforts for weight loss. - Received tetanus booster and flu vaccine during this visit. Orders: Orders Complete Blood Count Auto Diff 9 Months E53.8 - Deficiency of other specified B group vitamins, E66.01 - Morbid (severe) obesity due to excess calories, R73.03 - Prediabetes, Z00.01 - Encounter for general adult medical examination with abnormal findings Comprehensive Reform. Panel Fast 9 Months E53.8 - Deficiency of other specified B group vitamins, E66.01 - Morbid (severe) obesity due to excess calories, R73.03 - Prediabetes, Z00.01 - Encounter for general adult medical examination with abnormal findings Vitamin B12 9 Months E53.8 - Deficiency of other specified B group vitamins, E66.01 - Morbid (severe) obesity due to excess calories, R73.03 - Prediabetes, Z00.01 - Encounter for general adult medical examination with abnormal findings TDaP Immunization Today Z23 - Encounter for immunization Influenza [id number] Immunization Today Z23 - Encounter for immunization Lipid Panel 9 Months E53.8 - Deficiency of other specified B group vitamins, E66.01 - Morbid (severe) obesity due to excess calories, R73.03 - Prediabetes, Z00.01 - Encounter for general adult medical examination with abnormal findings Vitamin D 25-OH (D2 and D3) 9 Months E53.8 - Deficiency of other specified B group vitamins, E66.01 - Morbid (severe) obesity due to excess calories, R73.03 - Prediabetes, Z00.01 - Encounter for general adult medical examination with abnormal findings Referrals Gastroenterology Referral Z12.11 - Encounter for screening for malignant neoplasm of colon
--- OUTSIDE RECORDS SUMMARY | 2025-01-12 09:10 | XMS_ITS | Clinical Summary ---
Author Organization [facility] Address [address] [place] [address] Care Team Providers Care Flue Tile Press Operator Name Role Phone Fauzia Moreno Primary Care Provider [phone] Allergies Active Allergy Reactions Criticality Noted Date [...] 60-74 years 1-dose series) 2022 Influenza Vaccine 11/13/2024 COVID-19 Vaccine ( - 2023-2 5 season) 2024 Hepatitis B Vaccines Aged Out No long er eligible based on patient's age to complete this topic Insurance Care Teams Flue Tile Press Operator Relationship Specialty Start Date End Date Fauzia Moreno DO PCP - General Internal Medicine 06/12/18
--- OUTSIDE RECORDS SUMMARY | 2025-01-12 09:10 | XMS_ITS | Clinical Summary ---
Author Organization [facility] Address [address] [place] [address] Care Team Providers Care Tunnel Drier Operator Name Role Phone Fauzia Moreno DO Primary Care Provider [phone] Family History Medical History Relation Name Comments [...] age to complete this topic Care Teams Tunnel Drier Operator Relationship Specialty Start Date End Date Fauzia Moreno DO PCP - General Pediatrics 11/14/16
--- OUTSIDE RECORDS SUMMARY | 2025-01-12 09:10 | XMS_ITS | Patient Health Record ---
Author Organization [facility] Address [address] [place] [id number] Care Team Providers Care Sap Portal Consultant Name Role Phone ANTOLIN SOMMERS Primary Care Provider DAVID Pham Unavailable [phone] Allergies Allergen (clinical drug ingredient) Drug/Non Drug [...] Status Risk Notes Problem Abnormal uterine bleeding ([id number]) Abnormal uterine and vaginal bleeding, unspecified (N93.9) Active confirmed Problem COVID-19 ([id number]) COVID-19 (U07.1) Active confirmed Encounters Encounter Location Date Provider Diagnosis [facility] [employer] Organizer [address] [address] 09/15/2024 DAVID FOLEY Encounter for gynecological examination [...] Insured Coverage Start Date Coverage End Date [facility] [address] [address] [place] [address] [id number] MARISOL CHAPARRO Self - patient is the insured Medical (General) History Medical History History ICD Code COVID-19 U07.1 Surgical History Surgery Date(Month/Year) Section X2 BTL 1986 Tubal reversal 1996 Hospitalization History Reason Date(Month/Year) See Surgical Hx
--- OUTSIDE RECORDS SUMMARY | 2025-01-12 09:10 | XMS_ITS | Clinical Summary ---
Author Organization [facility] Address [address] [place] [address] Care Team Providers Care Clinical Quality Rn Name Role Phone Fauzia Moreno Primary Care Provider [phone] Surgical History Surgery Date Site/Laterality Comments SECTION [...] Health Maintenance Due Date Last Done Comments Colorectal Cancer Screening: Colonoscopy 1962 Pneumococcal Vaccine: 50+ Ye ars (1 of 2 - PCV) 1981 Cervical Cancer Screening: P ap Smear 07/02/1983 Zoster Vaccines (1 of 2) 2012 Breast Cancer Screening 11/30/2019 11/29/2017 DTaP,Tdap,and Td Vaccines (2 - Td or Tdap) 02/24/2022 02/25/2012 Cholesterol Screening (Lipid Panel) 03/13/2022 HIV Screening 03/13/2022 Hepatitis C Screening 03/13/2022 Social Influencers of Health Screening 03/13/2022 RSV Immunization Adult Patie nts (1 - Risk 60-74 years 1-dose series) 2022 Depression Screening 04/15/2024 COVID-19 Vaccine ( - 2023-2 5 season) 2024 Influenza Vaccine [...] on 12/02/2017 1:47 PM. Workstation Name - [id number] Procedure Note River Turpin MD - 04/07/2022 [...] MD on 12/02/2017 1:47 PM.Workstation Name - [id number] Froylan Jones DO IMG BI PROCEDURES Final Result from Last 3 Months or Most Recently Relevant to Health Maintenance Care Teams Clinical Quality Rn Relationship Specialty Start Date End Date Fauzia Moreno DO [address] [facility] [place] [address] PCP - General Pediatrics 11/14/16
== END 2025-01-12 09:06 | disposition home or self-care (01) ==
LOC: HO.HMCC 08:41
PROVIDERS: PCP Internal Medicine; Visit Provider Internal Medicine
DX: Z00.01 Encounter for general adult medical examination with abnormal findings (principal); R73.03 Prediabetes; E66.01 Morbid (severe) obesity due to excess calories; Z68.43 Body mass index [BMI] 50.0-59.9, adult; Z12.11 Encounter for screening for malignant neoplasm of colon; E53.8 Deficiency of other specified B group vitamins; Z23 Encounter for immunization

== ENCOUNTER → 2025-01-12 08:41 | Outpatient (BNVA) | payer OTHER, SELFPAY | PROVIDERS: PCP Internal Medicine; Visit Provider Internal Medicine | DX: Z00.01 Encounter for general adult medical examination with abnormal findings (principal); E78.5 Hyperlipidemia, unspecified; E55.9 Vitamin D deficiency, unspecified; N92.0 Excessive and frequent menstruation with regular cycle; E66.01 Morbid (severe) obesity due to excess calories; R73.03 Prediabetes; E53.8 Deficiency of other specified B group vitamins; Z23 Encounter for immunization; Z68.43 Body mass index [BMI] 50.0-59.9, adult; Z97.5 Presence of (intrauterine) contraceptive device | CPT/HCPCS: 90471; 90472; 90656; 90715; 99396 ==

== ENCOUNTER 2025-02-02 10:18 | Outpatient (AMB) | payer OTHER, SELFPAY ==
--- NOTE | 2025-02-02 10:24 | A.OFFVIS_ITS ---
Vital Signs 02/02/25 10:29 Height 4 ft 11 in Weight 250 lb BMI 50.5 Intake Visit Reasons: INJ- b/l knee Euflexxa #1 Intake Note: Mari is a 64 year old female who presents with complaints of bilateral knee pains. She describes her pains as sharp in nature. She has failed the last 3 months of conservative treatment. She has had cortisone injections in the past which gave her minimal relief. She has also had viscosupplementation injections which gave her good relief. She wishes to hold off on surgery if at all possible. Allergies shellfish derived Allergy (Unknown, Verified 02/02/25 10:29) Unknown seafood Allergy (Verified 02/02/25 10:29) Unknown Medication List - Last Reconciled 02/02/25 by Luis Rizo MD albuterol sulfate 90 mcg/actuation (ProAir HFA) 2 puffs inhalation Q4-6H PRN cholecalciferol (vitamin D3) 50 mcg PO DAILY mecobalamin (vitamin B12) 1,000 mcg sublingual DAILY PFSH Medical History Benign neoplasm of skull Asthma Surgical History History of breast biopsy History of tonsillectomy History of section Family History Father HTN (hypertension) Diabetes mellitus Mother HTN (hypertension) Kidney failure CVD (cardiovascular disease) Diabetes mellitus Mental health disorder Daughter No problems noted. Daughter No problems noted. 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 Cognitive needs: No Hearing needs: No Vision needs: Yes Physical Exam Vital Signs: BMI result Body Mass Index 50.5 Const Other: Well-nourished well-developed very friendly female awake alert and oriented x3 in no acute distress Extrem Other: Bilateral knee examination shows minimal effusions, palpable crepitus with range of motion, pain with range of motion, no instability Office Procedures AMB Joint Injection/Aspiration Joint Injection/Aspiration Primary Site: left knee Prep: site was prepped using aseptic technique Injected: 20 mg of (Euflexxa viscosupplementation) and 1% plain lidocaine Procedure: The patient tolerated the procedure well Coding 63386 - Large joint Procedure code (CPT) selection complete AMB Joint Injection/Aspiration Joint Injection/Aspiration Primary Site: right knee Prep: site was prepped using aseptic technique Injected: 20 mg of (Euflexxa viscosupplementation) and 1% plain lidocaine Procedure: The patient tolerated the procedure well Coding 73262 - Large joint Procedure code (CPT) selection complete Results Reviewed Results Reviewed: X-rays of the patient's bilateral knees taken previously show joint space narrowing, subchondral sclerosis, no acute bony abnormalities Assessment & Plan Assessment & Plan (1) Osteoarthritis of left knee: Code(s): M17.12 - Unilateral primary osteoarthritis, left knee Category: Medical (2) Osteoarthritis of right knee: Code(s): M17.11 - Unilateral primary osteoarthritis, right knee Category: Medical Plan Mari presents with bilateral knee pains due to osteoarthritis. I had a elissa thy discussion with the patient regarding the treatment options. She wishes to hold off on surgery for as long as possible. I agree with this plan. The risks and benefits of bilateral knee Euflexxa viscosupplementation injections were discussed at length with the patient. The patient wished to proceed. She tolerated the 1st set of injections well. She will continue with her home exercise program. She will follow up next week as scheduled. Feel free to call me at any time should questions regarding her orthopedic management arise. I spent 20 minutes in reviewing the patient's records and imaging studies, seeing the patient and documenting in the medical record. Orders: Orders AMB Joint Injection/Aspiration Today M17.11 - Unilateral primary osteoarthritis, right knee AMB Joint Injection/Aspiration Today M17.12 - Unilateral primary osteoarthritis , left knee Coding Level of Care Code Est Pt Level 3 (34816) Complex EM visit Add On G2211 Diagnoses Osteoarthritis of left knee M17.12 Osteoarthritis of right knee M17.11 CPT Codes Coding - 88519 Large joint: 82187 - Large joint ([id number]) Coding - 62587 Large joint: 19846 - Large joint ([id number])
[2025-02-02 10:29] VITALS: BMI 50.5
== END 2025-02-02 10:54 | disposition home or self-care (01) ==
LOC: HO.HOS 10:18
PROVIDERS: PCP Internal Medicine; Visit Provider Orthopaedic Surgery
DX: M17.0 Bilateral primary osteoarthritis of knee (principal)
CPT/HCPCS: 20610; 99213

== ENCOUNTER → 2025-02-02 10:18 | Outpatient (BNVA) | payer OTHER, SELFPAY | PROVIDERS: PCP Internal Medicine; Visit Provider Orthopaedic Surgery | DX: M17.12 Unilateral primary osteoarthritis, left knee (principal); M17.11 Unilateral primary osteoarthritis, right knee | CPT/HCPCS: 20610; 99212; J2003; J7323 ==

== ENCOUNTER 2025-02-09 08:29 | Outpatient (AMB) | payer OTHER, SELFPAY ==
--- OUTSIDE RECORDS SUMMARY | 2023-10-18 07:00 | XMS_ITS ---
Author Organization Total [facility] Address [address] [address] Care Team Providers Care Senior Engineering Specialist Name Role Phone ANTOLIN SOMMERS Primary Care Provider DAVID Pham Unavailable [phone] REASON FOR VISIT HSONO/EB/AUB Encounters Encounter Location Date Provider Diagnosis [facility] [employer] [address] [address] 10/18/2023 DAVID FOLEY Plan Of Treatment No Information Progress Notes * MARISOL CHAPARRODOB: 3 (64 yo F)Acc No.[id number]:10/18/2023 Patient: MARISOL SOW Provider: Brianna FOLEY MD :1960 A ge:63 Y S ex:Female Date:10/18/2023 Address:[address] [place] [address], [id number] Pcp:ANTOLIN SOMMERS Subjective: * Chief Complaints: * 1 . HSONO/EB/AUB. * Medical History: Objective: * Vitals: Assessment: Plan: * Treatment: * Images: Billing Information: * Visit Code: * Procedure Codes: * Electronic signature of DAVID FOLEY MD on 02/09/2025 at 09:08 AM EDT Sign off status: Pending * Provider: Brianna FOLEY MD Date: 0 10/18/2023 Generated for Printi ng/Faxing/eTransmitting on: 1 09:08 AM EDT
--- OUTSIDE RECORDS SUMMARY | 2023-10-18 07:00 | XMS_ITS ---
Author Organization Total [facility] Address [address] [facility] [address] [place] [address] Care Team Providers Care Dehairing Machine Tender Name Role Phone MATTHIEUANTOLIN Primary Care Provider DAVID Pham Unavailable [phone] REASON FOR VISIT HSONO/EB/AUB Encounters Encounter Location Date Provider Diagnosis [facility] [address] [address] 10/18/2023 DAVID FOLEY Abnormal uterine and vaginal [...] * MARISOL CHAPARRODOB: 3 (64 yo F)Acc No.[id number]:10/18/2023 Patient: MARISOL SOW Provider: Brianna FOLEY MD :1960 A ge:63 Y S ex:Female Date:10/18/2023 Address:[address] [place] [address] Pcp:ANTOLIN SOMMERS Subjective: * Chief Complaints: * 1 . HSONO/EB/AUB. * HPI: G YN (Procedures/Surgeries): Patient presents today for sonohysterogram and endometrial biopsy. She was seen as a new patient on 09/13/23 with the following history: She is a 63 yo who has the following concerns: CT scan with bulky uterus at [facility] on 05/22/23 She does not report [...] * Procedure Codes: 8 1025 URINE TEST, 03063 CATHETER FOR HYSTEROGRAPHY, 13108 BIOPSY OF UTERUS LINING * Follow Up: p rn * Images: Billing Information: * Visit Code: * Procedure Codes: 53002 URINE TEST. 99486 CATHETER FOR HYSTEROGRAPHY. 80039 BIOPSY OF UTERUS LINING. * Electronic signature of DAVID FOLEY MD on 02/09/2025 at 09:09 AM EDT Sign off status: Pending * Provider: Brianna FOLEY MD Date: 0 10/18/2023 Generated for Dorinda nation/Rene/Joeitting on: 1 09:09 AM EDT
--- OUTSIDE RECORDS SUMMARY | 2023-11-01 06:00 | XMS_ITS ---
Author Organization Total [facility] Address [address] [address] Care Team Providers Care Vascular Neurologist Name Role Phone ANTOLIN SOMMERS Primary Care Provider DAVID Pham Unavailable [phone] REASON FOR VISIT HSONO/EB/AUB Encounters Encounter Location Date Provider Diagnosis [facility] [employer] [address] [address] 11/01/2023 DAVID FOLEY Plan Of Treatment No Information Progress Notes * MAIRSOL CHAPARRODOB: 3 (64 yo F)Acc No.[id number]:11/01/2023 Patient: MARISOL SOW Provider: Brianna FOLEY MD :1960 A ge:63 Y S ex:Female Date:11/01/2023 Address:[address] [place] [address], [id number] Pcp:ANTOLIN SOMMERS Subjective: * Chief Complaints: * 1 . HSONO/EB/AUB. * Medical History: Objective: * Vitals: Assessment: Plan: * Treatment: * Images: Billing Information: * Visit Code: * Procedure Codes: * Electronic signature of DAVID FOLEY MD on 02/09/2025 at 09:10 AM EDT Sign off status: Pending * Provider: Brianna FOLEY MD Date: 0 11/01/2023 Generated for Printi ng/Faxing/eTransmitting on: 1 09:10 AM EDT
--- OUTSIDE RECORDS SUMMARY | 2023-11-01 06:00 | XMS_ITS ---
Author Organization Total [facility] Address [address] [address] Care Team Providers Care Application Consultant Name Role Phone ANTOLIN SOMMERS Primary Care Provider DAVID Pham Unavailable [phone] REASON FOR VISIT HSONO/EB/AUB Encounters Encounter Location Date Provider Diagnosis [facility] [employer] [address] [address] 11/01/2023 DAVID FOLEY Plan Of Treatment No Information Progress Notes * MARISOL CHAPARRODOB: 3 (64 yo F)Acc No.[id number]:11/01/2023 Patient: MARISOL SOW Provider: Brianna FOLEY MD :1960 A ge:63 Y S ex:Female Date:11/01/2023 Address:[address] [place] [address], [id number] Pcp:ANTOLIN SOMMERS Subjective: * Chief Complaints: * 1 . HSONO/EB/AUB. * Medical History: Objective: * Vitals: Assessment: Plan: * Treatment: * Images: Billing Information: * Visit Code: * Procedure Codes: * Electronic signature of DAVID FOLEY MD on 02/09/2025 at 09:08 AM EDT Sign off status: Pending * Provider: Brianna FOLEY MD Date: 0 11/01/2023 Generated for Printi ng/Faxing/eTransmitting on: 1 09:08 AM EDT
--- OUTSIDE RECORDS SUMMARY | 2023-11-01 10:50 | XMS_ITS ---
Author Organization [facility] Address [address] [address] Care Team Providers Care Primer Expeditor And Drier Name Role Phone ANTOLIN SOMMERS Primary Care Provider DAVID Pham Unavailable [phone] REASON FOR VISIT HSONO/EB/AUB Encounters Encounter Location Date Provider Diagnosis [facility] [employer] [address] [address] 11/01/2023 DAVID FOLEY Plan Of Treatment No Information Progress Notes * MARISOL CHAPARRODOB: 3 (64 yo F)Acc No.[id number]:11/01/2023 Patient: MARISOL SOW Provider: Brianna FOLEY MD :1960 A ge:63 Y S ex:Female Date:11/01/2023 Address:[address] [place] [address], [id number] Pcp:ANTOLIN SOMMERS Subjective: * Chief Complaints: * [...]
--- OUTSIDE RECORDS SUMMARY | 2023-11-01 11:00 | XMS_ITS ---
Author Organization Total [facility] [facility] Address [address] [facility] [address] [place] [address] Care Team Providers Care Artillery Specialist Name Role Phone ANTOLIN SOMMERS Primary Care Provider DAVID Pham Unavailable [phone] REASON FOR VISIT HSONO/EB/AUB Encounters Encounter Location Date Provider Diagnosis [facility] [employer] [address] [address] 11/01/2023 DAVID FOLEY Abnormal uterine and vaginal [...] * MARISOL CHAPARRODOB: 3 (64 yo F)Acc No.[id number]:11/01/2023 Patient: MARISOL SOW Provider: Brianna FOLEY MD :1960 A ge:63 Y S ex:Female Date:11/01/2023 Address:[address] [place] [address] Pcp:ANTOLIN SOMMERS Subjective: * Chief Complaints: * 1 . HSONO/EB/AUB. * HPI: G YN (Procedures/Surgeries): Patient presents today for sonohysterogram and endometrial biopsy. 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 35287 CATHETER FOR HYSTEROGRAPHY. 44049 BIOPSY OF UTERUS LINING. * Electronic signature of DAVID FOLEY MD on 02/09/2025 at 09:11 AM EDT Sign off status: Pending * Provider: Brianna FOLEY MD Date: 0 11/01/2023 Generated for Dorinda nation/Rene/Joeitting on: 1 09:11 AM EDT
--- OUTSIDE RECORDS SUMMARY | 2024-09-15 05:00 | XMS_ITS ---
Author Organization [employer] 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 Medications Medication SIG (Take, Route, Fr equency, Duration) Notes Start Date End Date Status miSOPROStol 200 MCG as directed Orally 8 -12 hrs prior to appointment; Duration: 1 days 09/13/2023 Active Encounters Encounter Location Date Provider Diagnosis [facility] [employer] [address] [address] 09/15/2024 DAVID FOLEY Encounter for gynecological examination [...] Follow Up: 1 Year, Reason: Y early Bonderizer Exam Progress Notes * MARI CHAPARRODOB: 3 (64 yo F)Acc No.[id number]:09/15/2024 PROGRESS NOTES Patient: MARI SOW Provider: Brianna FOLEY MD :1960 A ge:64 Y S ex:Female Date:09/15/2024 Address:[address] [place], [place] [phone] Pcp:ANTOLIN SOMMERS Subjective: * Chief Complaints: * 1 . 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 * HPI: C onstitutional: Mari is a 64yo with LMP who presents for her yearly ramp service agent exam. She has been in state of [...] to Dr Josefina Rodriguez, who did a [facility] Hysteroscopy on 05/26/24. 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 She and Dr Mcbride (ramp service agent-onc) discussed hysterectomy vs IUD, and Mari opted [...] Her last mammogram was *May 2023 at [facility]. She does have a family history of colon cancer - PGM. She a has *not had a colonoscopy. She has a consult scheduled next month. The patient does *not exercise. She reports knee arthritis. * ROS: A nnual Bonderizer Exam ROS: Bowel habit changes d enies. [...] Denies A nxiety. * Medical History: * Bonderizer History: G ravida/ Para 2 /2. 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 HEAD: n ormocephalic, atraumatic. [...] * Follow Up: 1 Year (Reason: Yearly Bonderizer Exam) * Images: Billing Information: * Visit Code: [id number] Preventive Care Est Pt. Age 40-64. * Procedure Codes: * Electronic signature of DAVID FOLEY MD on 02/09/2025 at 09:09 AM EDT Sign off status: Pending * Provider: Brianna FOLEY MD Date: 0 09/15/2024 Generated for Jgi rios/Rene/eTransmitting on: 1 09:09 AM EDT History and Physical Notes * HPI (History of Present Illness) Category Sub-Category Detail Notes Category Not es Constitutional Mari is a 64yo with LMP who presents for her yearly ramp service agent exam. She has been in state of [...] to Dr Josefina Rodriguez, who did a [facility] Hysteroscopy on 05/26/24. 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 She and Dr Mcbride (ramp service agent-onc) discussed hysterectomy vs IUD, and Mari opted [...] Her last mammogram was *May 2023 at [facility]. She does have a family history of colon cancer - PGM. She a has *not had a colonoscopy. She has a consult scheduled next month. The patient does *not exercise. She reports knee arthritis. 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
--- NOTE | 2025-02-09 08:32 | MHC.OFFVIS ---
Intake Visit Reasons: INJ- euflexxa #2, B/L knee Intake Note: Mari is a 64 year old female who presents today for an injection in her bilateral knee,Euflexxa #2. The patient states that she has gotten mild relief from the 1st set of injections. She continues with her home exercise program. Allergies shellfish derived Allergy (Unknown, Verified 02/02/25 10:29) Unknown seafood Allergy (Verified 02/02/25 10:29) Unknown Medication List - Last Reconciled 02/09/25 by Luis Rizo MD albuterol sulfate 90 mcg/actuation (ProAir HFA) 2 puffs inhalation Q4-6H PRN cholecalciferol (vitamin D3) 50 mcg PO DAILY mecobalamin (vitamin B12) 1,000 mcg sublingual DAILY PFSH Medical History Benign neoplasm of skull Asthma Surgical History History of breast biopsy History of tonsillectomy History of section Family History Father HTN (hypertension) Diabetes mellitus Mother HTN (hypertension) Kidney failure CVD (cardiovascular disease) Diabetes mellitus Mental health disorder Daughter No problems noted. Daughter No problems noted. 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 Cognitive needs: No Hearing needs: No Vision needs: Yes Physical Exam Extrem Other: Bilateral knee examination shows minimal effusions, palpable crepitus with range of motion, pain with range of motion, no instability Office Procedures AMB Joint Injection/Aspiration Joint Injection/Aspiration Primary Site: left knee Prep: site was prepped using aseptic technique Injected: 20 mg of (Euflexxa viscosupplementation), with 4 mL of and 1% plain lidocaine Procedure: The patient tolerated the procedure well Coding 16408 - Large joint Procedure code (CPT) selection complete AMB Joint Injection/Aspiration Joint Injection/Aspiration Primary Site: right knee Prep: site was prepped using aseptic technique Injected: 20 mg of (Euflexxa viscosupplementation), with 4 mL of and 1% plain lidocaine Procedure: The patient tolerated the procedure well Coding 79378 - Large joint Procedure code (CPT) selection complete Assessment & Plan Assessment & Plan (1) Osteoarthritis of left knee: Code(s): M17.12 - Unilateral primary osteoarthritis, left knee Category: Medical (2) Osteoarthritis of right knee: Code(s): M17.11 - Unilateral primary osteoarthritis, right knee Category: Medical Plan Ms. Horton presents with bilateral knee pains due to osteoarthritis. The risks and benefits of a 2nd set of Euflexxa viscosupplementation injections were discussed at length with the patient. The patient wished to proceed. She tolerated the injections well. She will continue with her home exercise program. She will follow up next week as scheduled. Feel free to call me at any time should questions regarding her orthopedic management arise. Orders: Orders AMB Joint Injection/Aspiration Today M17.12 - Unilateral primary osteoarthritis, left knee AMB Joint Injection/Aspiration Today M17.11 - Unilateral primary osteoarthritis, right knee Coding Level of Care Code Procedure Only Diagnoses Osteoarthritis of left knee M17.12 Osteoarthritis of right knee M17.11 CPT Codes Coding - 15040 Large joint: 67697 - Large joint ([id number]) Coding - 85050 Large joint: 19731 - Large joint ([id number])
--- OUTSIDE RECORDS SUMMARY | 2025-02-09 09:09 | XMS_ITS | Clinical Summary ---
Author Organization [facility] Address [address] [place] [address] Care Team Providers Care Clipper Automatic Name Role Phone Fauzia Moreno Primary Care Provider [phone] Allergies Active Allergy Reactions Criticality Noted Date [...] (Ages 21-65) 07/02/1983 Mammogram 2002 Colonoscopy 07/02/2007 RSV Vaccine 50 years and old er and Patients (1 - Risk 50-74 years 1-dose series) 2012 Zoster (Shingles) Vaccine (1 of 2) 2012 Influenza Vaccine 11/13/2024 COVID-19 Vaccine ( - 2023-2 5 season) 2024 Hepatitis B Vaccines Aged Out No long er eligible based on patient's age to complete this topic Insurance Care Teams Clipper Automatic Relationship Specialty Start Date End Date Fauzia Moreno DO PCP - General Internal Medicine 06/12/18
--- OUTSIDE RECORDS SUMMARY | 2025-02-09 09:11 | XMS_ITS | Clinical Summary ---
Author Organization [facility] Address [address] [place] [id number] Care Team Providers Care Pipeliner Name Role Phone Fauzia Moreno DO Primary Care Provider [phone] Family History Medical History Relation Name Comments [...] age to complete this topic Care Teams Pipeliner Relationship Specialty Start Date End Date Fauzia Moreno DO PCP - General Pediatrics 11/14/16
--- OUTSIDE RECORDS SUMMARY | 2025-02-09 09:11 | XMS_ITS | Patient Health Record ---
Author Organization [facility] Address [address] [place] [address] Care Team Providers Care Orthophotography Technician Name Role Phone ANTOLIN SOMMERS Primary Care Provider DAVID Pham Unavailable [phone] Allergies Allergen (clinical drug ingredient) Drug/Non Drug [...] Status Risk Notes Problem Abnormal uterine bleeding (425674273823 00) Abnormal uterine and vaginal bleeding, unspecified (N93.9) Active confirmed Problem COVID-19 (406432937) COVID-19 (U07.1) Active confirmed Encounters Encounter Location Date Provider Diagnosis [facility] [employer] [address] [address] 09/15/2024 DAVID FOLEY Encounter for gynecological examination [...] Insured Coverage Start Date Coverage End Date [facility] [address] [address] [place] [address] [id number] MARISOL CHAPARRO Self - patient is the insured Medical (General) History Medical History History ICD Code COVID-19 U07.1 Surgical History Surgery Date(Month/Year) Section X2 BTL 1986 Tubal reversal 1996 Hospitalization History Reason Date(Month/Year) See Surgical Hx
--- OUTSIDE RECORDS SUMMARY | 2025-02-09 09:11 | XMS_ITS | Clinical Summary ---
Author Organization [facility] it Address [address] [place] [address] Care Team Providers Care Surgical Training Specialist Name Role Phone Fauzia Moreno Primary Care Provider [phone] Surgical History Surgery Date Site/Laterality Comments SECTION [...] Cervical Cancer Screening: P ap Smear 07/02/1983 RSV Immunization Adult Patie nts (1 - Risk 50-74 years 1-dose series) 2012 Zoster Vaccines (1 of 2) 2012 Breast Cancer Screening 11/30/2019 11/29/2017 DTaP,Tdap,and Td Vaccines (2 - Td or Tdap) 02/24/2022 02/25/2012 Cholesterol Screening (Lipid Panel) 03/13/2022 HIV Screening 03/13/2022 Hepatitis C Screening 03/13/2022 Social Influencers of Health Screening 03/13/2022 Depression Screening 04/15/2024 COVID-19 Vaccine (1 - [...] on 12/02/2017 1:47 PM. Workstation Name - [id number] Procedure Note River Turpin MD - 04/07/2022 [...] MD on 12/02/2017 1:47 PM.Workstation Name - [id number] Froylan Jones DO IMG BI PROCEDURES Final Result from Last 3 Months or Most Recently Relevant to Health Maintenance Care Teams Surgical Training Specialist Relationship Specialty Start Date End Date Fauzia Moreno DO [address] [facility] [place] [address] PCP - General Pediatrics 11/14/16
== END 2025-02-09 08:57 | disposition home or self-care (01) ==
LOC: HO.HOS 08:30
PROVIDERS: PCP Internal Medicine; Visit Provider Orthopaedic Surgery
DX: M17.0 Bilateral primary osteoarthritis of knee (principal)
CPT/HCPCS: 20610

== ENCOUNTER → 2025-02-09 08:29 | Outpatient (BNVA) | payer OTHER, SELFPAY | PROVIDERS: PCP Internal Medicine; Visit Provider Orthopaedic Surgery | DX: M17.0 Bilateral primary osteoarthritis of knee (principal); M25.561 Pain in right knee; M25.562 Pain in left knee | CPT/HCPCS: 20610; J2003; J7323 ==

== ENCOUNTER 2025-02-16 08:36 | Outpatient (AMB) | payer OTHER, SELFPAY ==
--- OUTSIDE RECORDS SUMMARY | 2023-10-18 06:00 | XMS_ITS ---
Author Organization Total [facility] Address [address] [facility] [address] [place] [address] Care Team Providers Care Mental Health Unit Lead Psychologist Name Role Phone ANTOLIN SOMMERS Primary Care Provider DAVID Pham Unavailable [phone] REASON FOR VISIT HSONO/EB/AUB Encounters Encounter Location Date Provider Diagnosis [facility] [address] [address] 10/18/2023 DAVID FOLEY Abnormal uterine and vaginal bleeding, unspecified N93.9 Assessments Encounter Date Diagnosis (ICD Code) Assessment Notes Treatment Notes Treatment Clinical Notes Section Notes 10/18/2023 Abnormal uterine and vaginal bleeding, unspecified (ICD-10 - N93.9) Plan Of Treatment Next Appt Details Follow Up: prn, Reason: Procedure Notes * Category Sub-Category Detail Notes Endometrial biopsy Test: __ Consent: General procedure, i ndications, risks, benefits, alternative treatments, and expected outcomes have been discussed with this patient. She has had an opportunity to ask questions, and all questions have been answered by me. She verbalizes understanding and to the best of my knowledge I feel the patient has been adequately informed and consented. The consent form has been signed. Prep: The patient was plac ed in the dorsal lithotomy position and a pelvic examination performed with the results documented above. A speculum was inserted into the vagina and the cervix cleaned with an antiseptic solution Procedure: A speculum was place d in the vaginal vault. The cervix was visualized and cleansed with an antiseptic solution. The cervix was grasped with a tenaculum. Gentle traction was used to align the cervix and uterine canal. A flexible endometrial biopsy instrument was then passed through the cervical canal into the uterine cavity without difficulty. The uterine cavity was sounded to __ cm. An adequate specimen was obtained and submitted for pathological evaluation and hemostasis achieved. The instruments were removed from the vagina and the patient advised to report bleeding, fever, dizziness, or other symptoms. She tolerated the procedure well. She was discharged from the office in stable condition with follow-up instructions. Follow-up treatment will be determined when the results of the biopsy are available in approximately one week. Sonohysterogram procedure Cervix prepped w ith aseptic solution Progress Notes * MARISOL CHAPARRODOB: 3 (64 yo F)Acc No.[id number]:10/18/2023 Patient: MARISOL SOW Provider: Brianna FOLEY MD :1960 A ge:63 Y S ex:Female Date:10/18/2023 Address:[address] [place] [address] Pcp:ANTOLIN SOMMERS Subjective: * Chief Complaints: * 1 . HSONO/EB/AUB. * HPI: G YN (Procedures/Surgeries): Patient presents today for sonohysterogram and endometrial biopsy. She was seen as a new patient on 09/13/23 with the following history: She is a 63 yo who has the following concerns: CT scan with bulky uterus at [facility] on 05/22/23 She does not report vaginal dryness. She does not have hot flashes/night sweats. Menses: monthly, lasting 4-5 days, moderate flow. No intermenstrual bleeding. She reports she skipped a period about 3 years ago, but has otherwise continued with normal, monthly periods. * Medical History: Objective: * Vitals: Assessment: * Assessment: 1. A bnormal uterine and vaginal bleeding, unspecified - N93.9 (Primary) Plan: * Treatment: * Procedures: S onohysterogram: procedure C ervix prepped with aseptic solution. E ndometrial biopsy : Test: _ _. Consent: G eneral procedure, indications, risks, benefits, alternative treatments, and expected outcomes have been discussed with this patient. She has had an opportunity to ask questions, and all questions have been answered by me. She verbalizes understanding and to the best of my knowledge I feel the patient has been adequately informed and consented. The consent form has been signed.. Prep: T he patient was placed in the dorsal lithotomy position and a pelvic examination performed with the results documented above. A speculum was inserted into the vagina and the cervix cleaned with an antiseptic solution. Procedure: A speculum was placed in the vaginal vault. The cervix was visualized and cleansed with an antiseptic solution. The cervix was grasped with a tenaculum. Gentle traction was used to align the cervix and uterine canal. A flexible endometrial biopsy instrument was then passed through the cervical canal into the uterine cavity without difficulty. The uterine cavity was sounded to __ cm. An adequate specimen was obtained and submitted for pathological evaluation and hemostasis achieved. The instruments were removed from the vagina and the patient advised to report bleeding, fever, dizziness, or other symptoms. She tolerated the procedure well. She was discharged from the office in stable condition with follow-up instructions. Follow-up treatment will be determined when the results of the biopsy are available in approximately one week.. * Procedure Codes: 8 1025 URINE TEST, 38944 CATHETER FOR HYSTEROGRAPHY, 26881 BIOPSY OF UTERUS LINING * Follow Up: p rn * Images: Billing Information: * Visit Code: * Procedure Codes: 75079 URINE TEST. 81469 CATHETER FOR HYSTEROGRAPHY. 22135 BIOPSY OF UTERUS LINING. * Electronic signature of DAVID FOLEY MD on 02/16/2025 at 09:01 AM EST Sign off status: Pending * Provider: Brianna FOLEY MD Date: 0 10/18/2023 Generated for Dorinda nation/Rene/Joeitting on: 04/18/2024 09:01 AM EST
--- OUTSIDE RECORDS SUMMARY | 2023-10-18 06:00 | XMS_ITS ---
Author Organization Total [facility] Address [address] [address] Care Team Providers Care Chronic Disease Epidemiologist Name Role Phone ANTOLIN SOMMERS Primary Care Provider DAVID Pham Unavailable [phone] REASON FOR VISIT HSONO/EB/AUB Encounters Encounter Location Date Provider Diagnosis [facility] [employer] [address] [address] 10/18/2023 DAVID FOLEY Plan Of Treatment No Information Progress Notes * MARISOL CHAPARRODOB: 3 (64 yo F)Acc No.[id number]:10/18/2023 Patient: MARISOL SOW Provider: Brianna FOLEY MD :1960 A ge:63 Y S ex:Female Date:10/18/2023 Address:[address] [place] [address], [id number] Pcp:ANTOLIN SOMMERS Subjective: * Chief Complaints: * 1 . HSONO/EB/AUB. * Medical History: Objective: * Vitals: Assessment: Plan: * Treatment: * Images: Billing Information: * Visit Code: * Procedure Codes: * Electronic signature of DAVID FOLEY MD on 02/16/2025 at 09:00 AM EST Sign off status: Pending * Provider: Brianna FOLEY MD Date: 0 10/18/2023 Generated for Printi ng/Faxing/eTransmitting on: 04/18/2024 09:00 AM EST
--- OUTSIDE RECORDS SUMMARY | 2023-11-01 05:00 | XMS_ITS ---
Author Organization Total [facility] Address [address] [address] Care Team Providers Care Cytology Manager Name Role Phone ANTOLIN SOMMERS Primary Care Provider DAVID Pham Unavailable [phone] REASON FOR VISIT HSONO/EB/AUB Encounters Encounter Location Date Provider Diagnosis [facility] [employer] [address] [address] 11/01/2023 DAVID FOLEY Plan Of Treatment No Information Progress Notes * MARISOL CHAPARRODOB: 3 (64 yo F)Acc No.[id number]:11/01/2023 Patient: MARISOL SOW Provider: Brianna FOLEY MD :1960 A ge:63 Y S ex:Female Date:11/01/2023 Address:[address] [place] [address], [id number] Pcp:ANTOLIN SOMMERS Subjective: * Chief Complaints: * 1 . HSONO/EB/AUB. * Medical History: Objective: * Vitals: Assessment: Plan: * Treatment: * Images: Billing Information: * Visit Code: * Procedure Codes: * Electronic signature of DAVID FOLEY MD on 02/16/2025 at 09:01 AM EST Sign off status: Pending * Provider: Brianna FOLEY MD Date: 0 11/01/2023 Generated for Printi ng/Faxing/eTransmitting on: 04/18/2024 09:01 AM EST
--- OUTSIDE RECORDS SUMMARY | 2023-11-01 05:00 | XMS_ITS ---
Author Organization [facility] Address [address] [address] Care Team Providers Care Rn Infusion Name Role Phone ANTOLIN SOMMERS Primary Care Provider DAVID Pham Unavailable [phone] REASON FOR VISIT HSONO/EB/AUB Encounters Encounter Location Date Provider Diagnosis [facility] [employer] [address] [address] 11/01/2023 DAVID FOLEY Plan Of Treatment No Information Progress Notes * MARISOL CHAPARRODOB: 3 (64 yo F)Acc No.[id number]:11/01/2023 Patient: MARISOL SOW Provider: Brianna FOLEY MD :1960 A ge:63 Y S ex:Female Date:11/01/2023 Address:[address] [place] [address], [id number] Pcp:ANTOLIN SOMMERS Subjective: * Chief Complaints: * 1 . HSONO/EB/AUB. * Medical History: Objective: * Vitals: Assessment: Plan: * Treatment: * Images: Billing Information: * Visit Code: * Procedure Codes: * Electronic signature of DAVID FOLEY MD on 02/16/2025 at 09:00 AM EST Sign off status: Pending * Provider: Brianna FOLEY MD Date: 0 11/01/2023 Generated for Printi ng/Faxing/eTransmitting on: 04/18/2024 09:00 AM EST
--- OUTSIDE RECORDS SUMMARY | 2023-11-01 09:50 | XMS_ITS ---
Author Organization [facility] Address [address] [address] Care Team Providers Care Movie Producer Name Role Phone ANTOLIN SOMMERS Primary Care Provider DAVID Pham Unavailable [phone] REASON FOR VISIT HSONO/EB/AUB Encounters Encounter Location Date Provider Diagnosis [facility] [employer] [address] [address] 11/01/2023 DAVID FOLEY Plan Of Treatment No Information Progress Notes * MARISOL CHAPARRODOB: 3 (64 yo F)Acc No.[id number]:11/01/2023 Patient: MARISOL SOW Provider: Brianna FOLEY MD :1960 A ge:63 Y S ex:Female Date:11/01/2023 Address:[address] [place] [address], [id number] Pcp:ANTOLIN SOMMERS Subjective: * Chief Complaints: * [...]
--- OUTSIDE RECORDS SUMMARY | 2023-11-01 10:00 | XMS_ITS ---
Author Organization Total [facility] Address [address] [facility] [address] [place] [address] Care Team Providers Care Adobe Developer Name Role Phone ANTOLIN SOMMERS Primary Care Provider DAVID Pham Unavailable [phone] REASON FOR VISIT HSONO/EB/AUB Encounters Encounter Location Date Provider Diagnosis [facility] [address] [address] 11/01/2023 DAVID FOLEY Abnormal uterine and vaginal bleeding, unspecified N93.9 Assessments Encounter Date Diagnosis (ICD Code) Assessment Notes Treatment Notes Treatment Clinical Notes Section Notes 11/01/2023 Abnormal uterine and vaginal bleeding, unspecified (ICD-10 [...] * MARISOL CHAPARRODOB: 3 (64 yo F)Acc No.[id number]:11/01/2023 Patient: MARISLO SOW Provider: Brianna FOLEY MD :1960 A ge:63 Y S ex:Female Date:11/01/2023 Address:[address] [place] [address] Pcp:ANTOLIN SOMMERS Subjective: * Chief Complaints: * 1 . HSONO/EB/AUB. * HPI: G YN (Procedures/Surgeries): Patient presents today for sonohysterogram and endometrial biopsy. 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 Her BMI was 54, which increases her risk for endometrial hyperplasia and carcinoma. * Medical History: Objective: * Vitals: Assessment: [...] * Procedure Codes: 8 1025 URINE TEST, 58091 CATHETER FOR HYSTEROGRAPHY, 80377 BIOPSY OF UTERUS LINING * Follow Up: p rn * Images: Billing Information: * Visit Code: * Procedure Codes: 12338 URINE TEST. 84668 CATHETER FOR HYSTEROGRAPHY. 88880 BIOPSY OF UTERUS LINING. * Electronic signature of DAVID FOLEY MD on 02/16/2025 at 09:01 AM EST Sign off status: Pending * Provider: Brianna FOLEY MD Date: 0 11/01/2023 Generated for Dorinda nation/Rene/Joeitting on: 1 04/18/2024 09:01 AM EST
--- OUTSIDE RECORDS SUMMARY | 2024-09-15 04:00 | XMS_ITS ---
Author Organization [employer] [facility] Address [address] [place] [address] Care Team Providers Care Furniture Sales Consultant Name Role Phone ANTOLIN SOMMERS Primary Care Provider DAVID Pham Unavailable [phone] REASON FOR VISIT Annual PROJECT INTERN Physical Medications Medication SIG (Take, Route, Fr equency, Duration) Notes Start Date End Date Status miSOPROStol 200 MCG as directed Orally 8 -12 hrs prior to appointment; Duration: 1 days 09/13/2023 Active Encounters Encounter Location Date Provider Diagnosis [facility] [address] [address] 09/15/2024 DAVID FOLEY Encounter for gynecological examination (general) (routine) without abnormal findings Z01.419 ; Encounter for screening mammogram for malignant neoplasm of breast Z12.31 and Encounter for screening for infections with a predominantly sexual mode of transmission Z11.3 Assessments Encounter Date Diagnosis (ICD Code) Assessment Notes Treatment Notes Treatment Clinical Notes Section Notes 09/15/2024 Encounter for gynecological examination (general) (routine) without [...] to keep colon screening up to date. 09/15/2024 Encounter for screening mammogram for malignant neoplasm of breast (ICD-10 - Z12.31) 09/15/2024 Encounter for screening for infections with a predominantly sexual mode of transmission (ICD-10 - Z11.3) Plan Of Treatment Treatment Notes Assessment Notes Encounter for gynecological examination (general) (routine) without abnormal findings During the visit, the following areas of concern were addressed: Discussed cervical cancer screening with either cytology alone every 3 years or high risk HPV co-testing every 5 years as per ASCCP guidelines. Advised continued annual pelvic exams. Patient encouraged to increase her level of exercise. SBE technique encouraged/taught. Patient reminded when annual mammogram is due. Patient encouraged to keep colon screening up to date. Pending Test Test Name Order Date MM Digital Screening Mammogram 3D 2024 Next Appt Details Follow Up: 1 Year, Reason: Y early Flue Dust Laborer Exam Progress Notes * MARI CHAPARRODOB: 3 (64 yo F)Acc No.[id number]:09/15/2024 PROGRESS NOTES Patient: MARI SOW Provider: Brianna FOLEY MD :1960 A ge:64 Y S ex:Female Date:09/15/2024 Address:[address] [place], [place] [address] Pcp:ANTOLIN SOMMERS Subjective: * Chief Complaints: * 1 . Annual PROJECT INTERN Physical. * HPI: C onstitutional: Mari is a 64yo with LMP who presents for her yearly obstetrics gynecology md exam. She has been in state of good health since her last exam. She has the following concerns: She has received the Bret and Bret Covid-19 vaccine. Relationship status: *, not currently in a relationship. She is not sexually active. Sexual partner(s): male. She does not wish to have STI testing. She does *not report vaginal dryness. She does not have hot flashes/night sweats. Menses: *monthly, lasting 4-5 days, moderate flow. No intermenstrual bleeding. She reports she skipped a period about 3 years ago, but has otherwise continued with normal, monthly periods. She underwent a sonohysterogram last year and was referred to Dr Josefina Rodriguez, who did a [facility] Hysteroscopy on 05/26/24. 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 She and Dr Mcbride (obstetrics gynecology md-onc) discussed hysterectomy vs IUD, and Mari opted to proceed with Mirena IUD placement - this was attempted on 07/31/24, but despite using an os-finder, was unable to place the IUD. Hysterectomy was strongly encouraged, but Mari opted to proceed with medical management if able to place IUD. She is to undergo ultrasound-guided IUD placement with Dr Rodriguez, with a tentative 6 mo follow up for endometrial biopsy with Dr Mcbride. The patient has never had an abnormal pap smear. Her most recent pap smear was 09/13/23 - NIL, neg HR HPV. She has never been diagnosed with breast cancer. She does not have a family history of breast cancer. Her last mammogram was *May 2023 at [facility]. She does have a family history of colon cancer - PGM. She a has *not had a colonoscopy. She has a consult scheduled next month. The patient does *not exercise. She reports knee arthritis. * ROS: A nnual Flue Dust Laborer Exam ROS: Bowel habit changes d enies. B ladder symptoms d enies. V aginal discharge, unusual d enies. V aginal itch or odor d enies. w eight or appetite changes d enies. C hest pains, SOB d enies. d epression d enies.? B reast: Denies B reast lump. D enies N ipple discharge.? H ematology: Denies S wollen glands. S kin: Patient denies c hanging moles. P sychiatric: Denies A nxiety. * Medical History: * Flue Dust Laborer History: G ravida/ Para 2 /2. S exual activity n ot currently sexually active. L ast Pap Smear: NIL NEG HRHPV, 2011. M ammogram: . A bnormal Pap Smear: N o history of abnormal pap smears. L MP and menses . H istory of STD's: G onorrhea. M enarche 11 . * OB History: T otal pregnancies 2 . T otal living children 2 . C -section(s) 2 . P regnancy # 1: P rimary , 02/04/82, Starla, 6lb 15oz, breech, no complications. P regnancy # 2: R epeat (scheduled), 07/10/83, Sara, 6lb 15oz, no complications. * Medications: T aking miSOPROStol 200 MCG Tablet as directed Orally 8-12 hrs prior to appointment Objective: * Vitals: * Examination: G eneral Examination: GENERAL APPEARANCE: i n no acute distress, well developed, well nourished, director food and beverage present in room. HEAD: n ormocephalic, atraumatic. NECK/THYROID: n zaynab supple, full range of motion, thyroid normal. LYMPH NODES: n o axillary or supraclavicular adenopathy.? SKIN: normal, good turgor, no rashes, no suspicious lesions. BREASTS: normal, no dimpling, no discharge, no drainage, no masses palpable bilaterally, nontender. ABDOMEN: soft, non-tender, non distended without masses or hepatosplenomegay. RECTAL: normal tone, no masses palpable. BACK: no costovertebral angle tenderness. FEMALE GENITOURINARY: V ulva without lesions or masses, vagina pink without abnormal discharge, lesions or masses, cervix appears normal and is not tender to palpation, uterus is normal size, mobile, nontender and anteverted, ovaries are not palpable. NEUROLOGIC: alert and oriented, gait normal. PSYCH: alert, oriented, cognitive function intact, cooperative with exam, good eye contact, mood/affect full range, speech clear. Assessment: * Assessment: 1. E ncounter for gynecological examination (general) (routine) without abnormal findings - Z01.419 (Primary) 2 . E ncounter for screening mammogram for malignant neoplasm of breast - Z12.31 3 . E ncounter for screening for infections with a predominantly sexual mode of transmission - Z11.3 Plan: * Treatment: 2. E ncounter for screening mammogram for malignant neoplasm of breast I maging: MM Digital Screening Mammogram 3D * Follow Up: 1 Year (Reason: Yearly Flue Dust Laborer Exam) * Images: Billing Information: * Visit Code: 90569 Preventive Care Est Pt. Age 40-64. * Procedure Codes: * Electronic signature of DAVID FOLEY MD on 02/16/2025 at 09:01 AM EST Sign off status: Pending * Provider: Brianna FOLEY MD Date: 0 09/15/2024 Generated for Dorinda nation/Faxing/eTransmitting on: 1 04/18/2024 09:01 AM EST History and Physical Notes * HPI (History of Present Illness) Category Sub-Category Detail Notes Category Not es Constitutional Mari is a 64yo with LMP who presents for her yearly obstetrics gynecology md exam. She has been in state of good health since her last exam. She has the following concerns: She has received the Bret and Bret Covid-19 vaccine. Relationship status: *, not currently in a relationship. She is not sexually active. Sexual partner(s): male. She does not wish to have STI testing. She does *not report vaginal dryness. She does not have hot flashes/night sweats. Menses: *monthly, lasting 4-5 days, moderate flow. No intermenstrual bleeding. She reports she skipped a period about 3 years ago, but has otherwise continued with normal, monthly periods. She underwent a sonohysterogram last year and was referred to Dr Josefina Rodriguez, who did a [facility] Hysteroscopy on 05/26/24. 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 She and Dr Mcbride (obstetrics gynecology md-onc) discussed hysterectomy vs IUD, and Mari opted to proceed with Mirena IUD placement - this was attempted on 07/31/24, but despite using an os-finder, was unable to place the IUD. Hysterectomy was strongly encouraged, but Mari opted to proceed with medical management if able to place IUD. She is to undergo ultrasound-guided IUD placement with Dr Rodriguez, with a tentative 6 mo follow up for endometrial biopsy with Dr Mcbride. The patient has never had an abnormal pap smear. Her most recent pap smear was 09/13/23 - NIL, neg HR HPV. She has never been diagnosed with breast cancer. She does not have a family history of breast cancer. Her last mammogram was *May 2023 at [facility]. She does have a family history of colon cancer - PGM. She a has *not had a colonoscopy. She has a consult scheduled next month. The patient does *not exercise. She reports knee arthritis. Examination Category Sub-Category Detail Notes Category Not es General Examination GENERAL APPEARANCE: in no ac simone distress, well developed, well nourished, director food and beverage present in room HEAD: normocephalic, atrau matic NECK/THYROID: neck supple, full ra nge of motion, thyroid normal ABDOMEN: soft, non-tender, no n distended without masses or hepatosplenomegay NEUROLOGIC: alert and oriented, gait normal SKIN: normal, good turgor, no rashes, no suspicious lesions BACK: no costovertebral an gle tenderness BREASTS: normal, no dimpling, no discharge, no drainage, no masses palpable bilaterally, nontender LYMPH NODES: no axillary or supra clavicular adenopathy RECTAL: normal tone, no mass es palpable PSYCH: alert, oriented, cog nitive function intact, cooperative with exam, good eye contact, mood/affect full range, speech clear FEMALE GENITOURINARY: Vulva without lesi ons or masses, vagina pink without abnormal discharge, lesions or masses, cervix appears normal and is not tender to palpation, uterus is normal size, mobile, nontender and anteverted, ovaries are not palpable
--- NOTE | 2025-02-16 08:40 | A.OFFVIS_ITS ---
Vital Signs 02/16/25 08:47 Height 4 ft 11 in Weight 240 lb BMI 48.5 Intake Visit Reasons: INJ- Euflexxa #3, B/L Knee Intake Note: Mari is a 64 year old female who presents today for injection in her bilateral knee, Euflexxa #3. She states that she has gotten mild relief from the 1st set of Euflexxa injections. She continues with her home exercise program. Allergies shellfish derived Allergy (Unknown, Verified 02/16/25 08:47) Unknown seafood Allergy (Verified 02/16/25 08:47) Unknown Medication List - Last Reconciled 02/16/25 by Luis Rizo MD albuterol sulfate 90 mcg/actuation (ProAir HFA) 2 puffs inhalation Q4-6H PRN cholecalciferol (vitamin D3) 50 mcg PO DAILY mecobalamin (vitamin B12) 1,000 mcg sublingual DAILY PFSH Medical History Benign neoplasm of skull Asthma Surgical History History of breast biopsy History of tonsillectomy History of section Family History Father HTN (hypertension) Diabetes mellitus Mother HTN (hypertension) Kidney failure CVD (cardiovascular disease) Diabetes mellitus Mental health disorder Daughter No problems noted. Daughter No problems noted. 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 Cognitive needs: No Hearing needs: No Vision needs: Yes Physical Exam Vital Signs: BMI result Body Mass Index 48.5 Const Other: Well-nourished well-developed very friendly female awake alert and oriented x3 in no acute distress Extrem Other: Bilateral knee examination shows minimal effusions, palpable crepitus with range of motion, pain with range of motion, no instability Office Procedures AMB Joint Injection/Aspiration Joint Injection/Aspiration Primary Site: left knee Prep: site was prepped using aseptic technique Injected: 20 mg of (Euflexxa viscosupplementation), with 4 mL of and 1% plain lidocaine Procedure: The patient tolerated the procedure well Coding - Large joint Procedure code (CPT) selection complete AMB Joint Injection/Aspiration Joint Injection/Aspiration Primary Site: right knee Prep: site was prepped using aseptic technique Injected: 20 mg of (Euflexxa viscosupplementation), with 4 mL of and 1% plain lidocaine Procedure: The patient tolerated the procedure well Coding - Large joint Procedure code (CPT) selection complete Assessment & Plan Assessment & Plan (1) Osteoarthritis of left knee: Code(s): M17.12 - Unilateral primary osteoarthritis, left knee Category: Medical (2) Osteoarthritis of right knee: Code(s): M17.11 - Unilateral primary osteoarthritis, right knee Category: Medical Plan Ms. Horton presents with bilateral knee pains due to osteoarthritis. The risks and benefits of a 3rd set of Euflexxa injections were discussed at length with the patient. The patient wished to proceed. She tolerated the injections well. She will continue with her home exercise program. She will contact me prior to her follow-up appointment in 6 months should any questions or concerns arise. Feel free to call me at any time should questions regarding her orthopedic management arise. Orders: Orders AMB Joint Injection/Aspiration Today M17.12 - Unilateral primary osteoarthritis, left knee AMB Joint Injection/Aspiration Today M17.11 - Unilateral primary osteoarthritis, right knee Coding Level of Care Code Procedure Only Diagnoses Osteoarthritis of left knee M17.12 Osteoarthritis of right knee M17.11 CPT Codes Coding - 27878 Large joint: 99108 - Large joint ([id number]) Coding - 22617 Large joint: 80417 - Large joint ([id number])
[2025-02-16 08:47] VITALS: BMI 48.5
--- OUTSIDE RECORDS SUMMARY | 2025-02-16 09:02 | XMS_ITS | Clinical Summary ---
Author Organization [facility] Address [address] [place] [address] Care Team Providers Care Bale Opener Name Role Phone Fauzia Moreno DO Primary Care Provider [phone] Family History Medical History Relation Name Comments [...] age to complete this topic Care Teams Bale Opener Relationship Specialty Start Date End Date Fauzia Moreno DO PCP - General Pediatrics 11/14/16
--- OUTSIDE RECORDS SUMMARY | 2025-02-16 09:02 | XMS_ITS | Patient Health Record ---
Author Organization [facility] Address [address] [place] [address] Care Team Providers Care Structurer Name Role Phone ANTOLIN SOMMERS Primary Care Provider DAVID Pham Unavailable [phone] Allergies Allergen (clinical drug ingredient) Drug/Non Drug [...] Status Risk Notes Problem Abnormal uterine bleeding ([id number] 00) Abnormal uterine and vaginal bleeding, unspecified (N93.9) Active confirmed Problem COVID-19 (128042772) COVID-19 (U07.1) Active confirmed Encounters Encounter Location Date Provider Diagnosis [facility] [employer] [address] [address] 09/15/2024 DAVID FOLEY Encounter for gynecological examination [...] Insured Coverage Start Date Coverage End Date [facility] [address] [address] [place] [id number] MARISOL CHAPARRO Self - patient is the insured Medical (General) History Medical History History ICD Code COVID-19 U07.1 Surgical History Surgery Date(Month/Year) Section X2 BTL 1986 Tubal reversal 1996 Hospitalization History Reason Date(Month/Year) See Surgical Hx
--- OUTSIDE RECORDS SUMMARY | 2025-02-16 09:02 | XMS_ITS | Clinical Summary ---
Author Organization [facility] it Address [address] [place] [address] Care Team Providers Care Television Cabinet Finisher Name Role Phone Fauzia Moreno Primary Care Provider [phone] Surgical History Surgery Date Site/Laterality Comments SECTION [...] on 12/02/2017 1:47 PM. Workstation Name - [id number] Procedure Note River Turpin MD - 04/07/2022 [...] MD on 12/02/2017 1:47 PM.Workstation Name - [id number] Froyaln Jones DO IMG BI PROCEDURES Final Result from Last 3 Months or Most Recently Relevant to Health Maintenance Care Teams Television Cabinet Finisher Relationship Specialty Start Date End Date Fauzia Moreno DO [address] [facility] [place] [address] PCP - General Pediatrics 11/14/16
== END 2025-02-16 09:09 | disposition home or self-care (01) ==
LOC: HO.HOS 08:36
PROVIDERS: PCP Internal Medicine; Visit Provider Orthopaedic Surgery
DX: M17.0 Bilateral primary osteoarthritis of knee (principal)
CPT/HCPCS: 20610

== ENCOUNTER → 2025-02-16 08:36 | Outpatient (BNVA) | payer OTHER, SELFPAY | PROVIDERS: PCP Internal Medicine; Visit Provider Orthopaedic Surgery | DX: M17.0 Bilateral primary osteoarthritis of knee (principal) | CPT/HCPCS: 20610; J2003; J7323 ==